=== PATIENT | female | born 1960 | race Caucasian/White ===

== ENCOUNTER 2017-12-01 19:26 | Observation (INO) ==
[2017-12-01] MEDS ORDERED: 0.9 % Sodium Chloride 1,000 ML IVC ONE (19:48)
--- NOTE | 2017-12-01 19:56 | Emergency Department Note ---
Disposition Clinical Impression: Generalized weakness, Elevated troponin, Hypokalemia Decubitus ulcer Qualifiers: Pressure ulcer location: contiguous region involving back and buttock Pressure ulcer stage: stage 3 Laterality: unspecified laterality Qualified Code(s): L89.43 - Pressure ulcer of contiguous site of back, buttock and hip, stage 3 Back pain Qualifiers: Back pain location: low back pain Chronicity: unspecified Back pain laterality : unspecified Sciatica presence: unspecified whether sciatica present Qualified Code(s): M54.5 - Low back pain Disposition: Admitted As Inpatient Condition: Fair Referrals: NONE,PCP [Primary Care Provider] - Forms: ED Satisfaction Letter Time of Disposition: 21:10 General Adult HPI - General Chief complaint: ED Weakness Stated complaint: can't walk/weak Time Seen by Provider: 12/01/17 19:37 Source: patient, family Mode of arrival: ambulatory Limitations: no limitations Nursing Notes Reviewed: Yes Vital Signs Reviewed: Yes - History of Present Illness HPI Narrative: 57-year-old female with history of COPD, chronic back pain from a traumatic injury in the past presents for evaluation of generalized weakness and difficulty with walking. Patient states she has been followed by chronic pain management up in [place]. States that she has had chronic back pain with epidural injections in the past with the most recent injection in July of last year. Patient's had neuropathy primarily in the left leg. Patient states that her weakness is progressively gotten worse over the past 2 weeks. Notes recurrent falls. Denies any head injury or loss of consciousness. Denies being any blood thinners. Patient denies any fevers. Patient states that at times she has late in her own urine. States she feels she has a UTI. Denies any fevers. Patient also notes she has been constipated for the past week. She correlates her constipation to decreased oral intake. States that she is on Lyrica for pain control. States that she is not able to perform activities of daily living at home. Patient denies any chest pain but does note a nonproductive cough during this timeframe possibly related to her period of immobility. Patient states her main complaint is pain primarily in her buttock related to likely bedsores. Pain Scale: 7 - Related Data Allergies Allergy/AdvReac Type Severity Reaction Status Date / Time Penicillins [PCN] Allergy Rash Verified 12/01/17 19:31 All systems ED: reviewed and negative except as stated. Constitutional: Denies: fever Cardiovascular: Denies: chest pain Respiratory: Reports: cough. Denies: dyspnea, sputum production Gastrointestinal: Reports: constipation. 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 Absent : tenderness - Respiratory Respiratory exam: Present: prolonged expiratory phase, other (Diffusely diminished). Absent: respiratory distress - Cardiovascular Cardiovascular exam: Present: regular rate, normal rhythm. Absent: systolic murmur - Abdominal Exam Abdominal exam: Present: soft, Non-Tender. Absent: distention, guarding, rebound - Extremities Exam Extremities exam: Present: other (lower extremity atrophy) - Expanded Lower Extremity Exam Neurovascular/Tendon exam: Present: normal capillary refill, sensory deficit. Absent: pulse deficit, motor deficit - Back Exam Back exam: Present: normal inspection. Absent: tenderness - Neurological Exam Neurological exam: Present: alert, oriented X3, CN II-XII intact - Expanded Neurological Exam Patient oriented to: Present: person, place, time Speech: Present: fluid speech Cranial nerves: EOM function (II, III, IV, ): Normal, facial sensation (V): Normal, facial palsy (VII): Normal, spinal accessory function (XI): Normal, tongue deviation (XII): Normal Motor strength - LUE: 5/5 Motor strength - RUE: 5/5 Motor strength - LLE: 5/5 Motor strength - RLE: 5/5 Sensory exam upper extremity: light touch: Normal Sensory exam lower extremity: light touch: Abnormal Left DTR: patellar (L): 3+, patellar (R): 3+ Coma Scale Eye Opening: Spontaneous Coma Scale Motor Response: Obeys Commands Coma Scale Verbal Response: Oriented Coma Scale Total: 15 - Skin Skin exam: Present: warm, dry, intact, normal color, other (Stage III decubitus ulcer on her buttock.) Course Course Narrative: Patient seen and examined. Patient appears clinically decompensated. Patient will likely require admission for formal physical therapy evaluation as well as discharge planning. Patient will do an extensive laboratory and CT evaluation. Patient with CT of the head CT and pelvis with lumbar spine. Patient will also get a chest x-ray. Basic labs. Urinalysis. Disposition admission. Patient will be started and antibiotics given the Decub ulcers. - Reevaluation(s) Reevaluation #1: Patient's updated on plan of care. Given the CT findings of the lumbar doubt and pelvis. Concerns for central pathology. Patient will get an MRI of the lumbar spine. Time: 21:33 Reevaluation #2: Patient's troponin came back elevated. Discussed this with the patient. Patient states that she does not have any chest pain. Patient does state however now that she has had chest pressure earlier today that lasted oxalate 2 hours and has since resolved. Will discuss the case with cardiology. Time: 22:04 - Consultations Consultation #1: Discussed the elevated troponin with cardiology. Recommend initiating heparin. If there is any emergent neurosurgical evaluation Or can be discontinued. Repeat EKG obtained shows no acute abnormalities. Patient will get a CTA of the chest. Given her history of immobility. Time: 22:11 Vital Signs Temperature 99.5 F 12/01/17 19:31 Pulse Rate 124 12/01/17 19:31 Respiratory Rate 20 12/01/17 19:31 Blood Pressure 117/84 12/01/17 19:31 O2 Sat by Pulse Oximetry 92 12/01/17 19:31 Temperature 100 F H 12/01/17 21:00 Pulse Rate 107 12/01/17 21:00 Respiratory Rate 16 12/01/17 21:00 Blood Pressure 108/73 12/01/17 21:00 O2 Sat by Pulse Oximetry 94 12/01/17 21:00 Oxygen Delivery Oxygen Delivery Nasal Cannula Medical Decision Making - [facility] Narrative Medical decision making narrative: Patient is a 57-year-old female who initially complains of generalized weakness with decreased ambulation. Patient does appear chronically ill. Patient also has a concerning history of chronic back pain from a remote injury in the past. Patient has worsening lower leg weakness and neuropathy in her left leg. Patient does have atrophy of the lower legs. Patient was evaluated by this in the past in [place] and had an EMG and an MRI in the past as well. Patient's workup shows a significant decubitus ulcer. Patient was started on antibiotics. Patient does have secondary signs of infection such as elevated white count. Patient CT scan of her lumbar as well as her head and abdomen and pelvis show no acute abnormalities. Patient does have remote lacunar infarcts. 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 Given the patient's physical exam and MRI was ordered. At the time of this dictation the patient was signed out pending an MRI. Patient also had an elevated troponin. Patient ultimately stated that she did have some chest pressure that occurred earlier today. States that it lasts approximately 2 hours and since resolved. Patient initially declined any said chest pain upon history and physical. Discussed the elevated troponin with the cardiology recommended starting low-dose heparin. Patient also get a CTA of the chest for concerns of her immobility. 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 Disposition likely admission versus transfer if there is any neurosurgical indication pending MRI results. - Lab Data Lab results reviewed: Yes I reviewed the patient's lab results. Result diagrams: 12/01/17 21:13 12/01/17 19:48 Lab Results 12/01/17 12/01/17 12/01/17 Range/Units 19:48 20:45 21:13 WBC 16.2 H (4.3-11.1) K/mcL RBC 4.56 (3.82-4.97) M/mcL Hgb 13.2 (11.5-15.4) g/dL Hct 40.8 (35.3-44.9) % MCV 89.5 (83.0-100.0) fL MCH 28.9 (28.0-33.3) pg MCHC 32.4 (31.6-35.5) g/dL RDW 14.5 (11.5-14.5) % Plt Count 417 H (140-400) K/mcL MPV 11.3 (9.4-12.4) fL Immature Gran % 2.6 (0-4) % Seg Neutrophils % 71.3 % Lymphocytes % 18.3 % Monocytes % 6.9 % Eosinophils % 0.6 % Basophils % 0.3 % Neutrophils # 11.6 H (1.6-8.9) K/mcL Lymphocytes # 3.0 (0.6-4.6) K/mcL Monocytes # 1.1 (0.0-1.3) K/mcL Eosinophils # 0.1 (0.0-0.6) K/mcL Basophils # 0.1 (0.0-0.2) K/mcL Platelet Estimate Normal (Normal) Sodium 134 L (136-145) mEq/L Potassium 2.8 L (3.5-5.1) mEq/L Chloride 91 L (98-107) mEq/L Carbon Dioxide 31 H (23-29) mEq/L BUN 17 (6-20) mg/dL Creatinine 0.51 L (0.60-1.20) mg/dL Est GFR ( Amer) > 60 (> 60) Est GFR (Non-Af Amer) > 60 (> 60) BUN/Creatinine Ratio 33 H (6-26) Glucose 96 (70-105) mg/dL Calculated Osmolality 279 L (280-300) Lactic Acid (0.5-2.2) mmol/L Calcium 9.4 (8.6-10.3) mg/dL Phosphorus 3.2 (2.7-4.5) mg/dL Magnesium 1.7 (1.6-2.6) mg/dL Total Bilirubin 0.5 (0.3-1.0) mg/dL AST 31 (13-39) Units/L ALT 32 (7-52) Units/L Alkaline Phosphatase 80 (34-104) Units/L Creatine Kinase 170 (30-223) Units/L Troponin I 0.81 H* (< 0.04) ng/mL Serum Total Protein 8.0 (6.4-8.9) g/dL Albumin 3.9 (3.5-5.7) g/dL Globulin 4.1 H (2.4-3.5) g/dL Albumin/Globulin Ratio 1.0 L (1.1-2.2) Urine Color Dark Yellow (Yellow) Urine Clarity Cloudy A (Clear) Urine pH 7.0 (5.0-8.0) pH Units Ur Specific [place] 1.016 (1.010-1.025) Urine Protein Trace (Neg-Trace) mg/dL Urine Glucose (UA) Normal (Normal) mg/dL Urine Ketones 15 H (Negative) mg/dL Urine Blood Negative (Negative) Urine Nitrite Negative (Negative) Urine Bilirubin Small H (Negative) Urine Urobilinogen 2.0 H (Normal) mg/dL Ur Leukocyte Esterase Negative (Negative) Urine Microscopic RBC 0-3 (0-3) per hpf Urine Microscopic WBC 0-3 (0-3) per hpf Ur Squamous Epith Cells Many H (None-Few) per lpf Urine Bacteria Many H (None-Few) per hpf Hyaline Casts None Seen (None-Few) per lpf Ur Culture Indicated? NO (NO) 12/01/17 Range/Units 21:13 WBC (4.3-11.1) K/mcL RBC (3.82-4.97) M/mcL Hgb (11.5-15.4) g/dL Hct (35.3-44.9) % MCV (83.0-100.0) fL MCH (28.0-33.3) pg MCHC (31.6-35.5) g/dL RDW (11.5-14.5) % Plt Count (140-400) K/mcL MPV (9.4-12.4) fL Immature Gran % (0-4) % Seg Neutrophils % % Lymphocytes % % Monocytes % % Eosinophils % % Basophils % % Neutrophils # (1.6-8.9) K/mcL Lymphocytes # (0.6-4.6) K/mcL Monocytes # (0.0-1.3) K/mcL Eosinophils # (0.0-0.6) K/mcL Basophils # (0.0-0.2) K/mcL Platelet Estimate (Normal) Sodium (136-145) mEq/L Potassium (3.5-5.1) mEq/L Chloride (98-107) mEq/L Carbon Dioxide (23-29) mEq/L BUN (6-20) mg/dL Creatinine (0.60-1.20) mg/dL Est GFR ( Amer) (> 60) Est GFR (Non-Af Amer) (> 60) BUN/Creatinine Ratio (6-26) Glucose (70-105) mg/dL Calculated Osmolality (280-300) Lactic Acid 1.4 (0.5-2.2) mmol/L Calcium (8.6-10.3) mg/dL Phosphorus (2.7-4.5) mg/dL Magnesium (1.6-2.6) mg/dL Total Bilirubin (0.3-1.0) mg/dL AST (13-39) Units/L ALT (7-52) Units/L Alkaline Phosphatase (34-104) Units/L Creatine Kinase (30-223) Units/L Troponin I (< 0.04) ng/mL Serum Total Protein (6.4-8.9) g/dL Albumin (3.5-5.7) g/dL Globulin (2.4-3.5) g/dL Albumin/Globulin Ratio (1.1-2.2) Urine Color (Yellow) Urine Clarity (Clear) Urine pH (5.0-8.0) pH Units Ur Specific [place] (1.010-1.025) Urine Protein (Neg-Trace) mg/dL Urine Glucose (UA) (Normal) mg/dL Urine Ketones (Negative) mg/dL Urine Blood (Negative) Urine Nitrite (Negative) Urine Bilirubin (Negative) Urine Urobilinogen (Normal) mg/dL Ur Leukocyte Esterase (Negative) Urine Microscopic RBC (0-3) per hpf Urine Microscopic WBC (0-3) per hpf Ur Squamous Epith Cells (None-Few) per lpf Urine Bacteria (None-Few) per hpf Hyaline Casts (None-Few) per lpf Ur Culture Indicated? (NO) - Radiology Data Radiology results reviewed: Yes I reviewed the patient's radiology results. Chest X-Ray 12/01/17 19:48 IMPRESSION: No acute process. D/ / Junito Hightower MD / Junito Hightower MD Interpreting Provider: Junito Hightower MD Head CT 12/01/17 19:48 IMPRESSION: 1. No acute intracranial abnormality. 2. Mild diffuse atrophy with minimal chronic small vessel ischemic changes. 3. Suspected old lacunar infarct in the right basal ganglia. D/ / Junito Jones MD / Junito Jones MD Interpreting Provider: Junito oJnes MD Abdomen/Pelvis CT 12/01/17 19:53 IMPRESSION: 1. No acute abnormality. 2. Urinary bladder dilation. 3. Severe atherosclerosis with occlusion of the right common iliac artery and probable severe stenosis of the left common iliac artery. D/ / 12/01/2017 21:04:12 Boo Finch MD / mookie Interpreting Provider: Boo Finch MD Lumbar Spine CT 12/01/17 19:53 IMPRESSION: 1. No acute osseous abnormality. 2. Multilevel mild to moderate facet arthrosis and ligamentum flavum thickening and mild degenerative disc disease result in mild central canal encroachment at the L2-3 through L4-L5 levels. 3. Severe atherosclerotic disease. D/ / Mars Hauser MD / Mars Hauser MD Interpreting Provider: Mars Hauser MD - EKG Data EKG #1 EKG attestation: Yes I reviewed and interpreted this EKG. EKG shows normal: sinus rhythm Rate: tachycardia Rhythm: NSR [place]/QRS: normal P waves: ALY Interpretation: no acute changes S.B.A.R. - S.B.A.R. Situation: Demographics Background: Presenting Complaint Assessment: Vital Signs, Course and respsone to treatment, Patient/Family Expectation Recommendation: Barrier(s) to disposition (Pending MRI and CTA results), Recommendation based on pending studies, treatments, or consults S.B.A.R. Report Given to: Dr. Shepard SLucy Repor Time: 22:29 Attestation Statement - Attestation Attestation: Patient was seen with resident physician. I reviewed the history, physical, assessment and plan, and agree with the findings. I also personally evaluated this patient and had [id number] time with this patient. 57-year-old female with history of COPD and chronic back pain secondary to injury. Presents with inability to walk for the last week or so. Patient lives by herself and has basically been confined to her bed because she is concerned with the weakness in her legs. She said the weakness results in her falling and she was afraid to fall so she is mostly been bedridden. She is not effectively gone to the bathroom in terms of urination. She says painful and difficult for her to PE. She also feels soreness on her buttock area and has ulcerations there. No nausea vomiting or diarrhea. Review of systems as above remainder reviewed and negative. Exam. Vital signs stable. ENT is unremarkable. Heart regular rhythm and rate. Lungs no wheezing. Abdomen soft nontender. Extremities patient has a position of comfort with flexion in her lower extremities. She can move them they are bilaterally week in terms of strength. Neurologically patient is decreased strength bilaterally but no focal deficits. Skin exam patient has grade 3 decubitus ulcers posteriorly. Psych normal. ED course we will get blood cultures start patient on antibiotics for the decubitus ulcers. We will place a Porter catheter and check UA and basic labs as well as blood cultures. Patient will need a thorough workup and admission to the hospital. We will get CT scan of the back as well to make sure there is no additional structural damage or changes there. CT the head revealed no acute abnormalities. Back CT revealed degenerative changes, and abdominal CT revealed a distended bladder. Because of accommodation of this increasing weakness and then difficulty urinating we opted get an MRI of the back which is pending at the time of this dictation. Additionally patient came back with labs that demonstrated hypokalemia for which we treated. She also had an elevated troponin. We consult cardiology via the telephone who recommended starting on heparin, and if her back required surgical intervention and back be discontinued for that procedure. Because of the elevated troponin we also ordered a chest CT to make sure that with her immobility she does not have a PE. Both the CT of the chest the MRI were pending at time of shift change. These tests would ultimately impact patient's disposition whether she is admitted to the hospital or potentially transferred to another hospital. We were unable to make this determination without the test results. Patient was signed out to Dr. Azar for final care and disposition.
[2017-12-01 20:51] LABS: Bilirubin,Urine Small (Negative); Blood,Urine Negative (Negative); Clarity,Urine Cloudy (Clear); Color,Urine Dark Yellow (Yellow); Glucose,Urine (UA) Normal (Normal); Ketones,Urine 15 mg/dL (Negative); Leukocyte Esterase,Urine Negative (Negative); Nitrite,Urine Negative (Negative); Protein,Urine Trace mg/dL (Neg-Trace); Specific Gravity,Urine 1.016 (1.010-1.025)
[2017-12-01 20:53] LABS: Bacteria,Urine Many per hpf (None-Few); Hyaline Casts,Urine None Seen per lpf (None-Few); RBC,Urine 0-3 per hpf (0-3); Squamous Epithelial Cell,Urine Many per lpf (None-Few); WBC,Urine 0-3 per hpf (0-3)
[2017-12-01 21:23] LABS: Basophils # 0.1 K/mcL (0.0-0.2); Basophils % 0.3 %; Eosinophils # 0.1 K/mcL (0.0-0.6); Eosinophils % 0.6 %; Hematocrit 40.8 % (35.3-44.9); Hemoglobin 13.2 g/dL (11.5-15.4); Immature Granulocytes % 2.6 % (0-4); Lymphocytes % 18.3 %; Mean Corpuscular HGB Conc 32.4 g/dL (31.6-35.5); Mean Corpuscular Hemoglobin 28.9 pg (28.0-33.3); Mean Corpuscular Volume 89.5 fL (83.0-100.0); Mean Platelet Volume 11.3 fL (9.4-12.4); Monocytes # 1.1 K/mcL (0.0-1.3); Monocytes % 6.9 %; Platelet Count 417 K/mcL (140-400); Red Blood Count 4.56 M/mcL (3.82-4.97); Red Cell Distribution Width 14.5 % (11.5-14.5); Segmented Neutrophils % 71.3 %
[2017-12-01 21:27] LABS: Neutrophils # 11.6 K/mcL (1.6-8.9)
[2017-12-01 21:50] LABS: Platelet Estimate Normal (Normal)
[2017-12-01 21:53] LABS: Alanine Aminotransferase 32 Units/L (7-52); Albumin 3.9 g/dL (3.5-5.7); Alkaline Phosphatase 80 Units/L (34-104); Aspartate Amino Transferase 31 Units/L (13-39); BUN/Creatinine Ratio 33 (6-26); Bilirubin,Total 0.5 mg/dL (0.3-1.0); Blood Urea Nitrogen 17 mg/dL (6-20); Calcium 9.4 mg/dL (8.6-10.3); Carbon Dioxide 31 mEq/L (23-29); Chloride 91 mEq/L (98-107); Creatine Kinase 170 Units/L (30-223); Globulin 4.1 g/dL (2.4-3.5); Glucose 96 mg/dL (70-105); Magnesium 1.7 mg/dL (1.6-2.6); Osmolality,Calculated 279 (280-300); Phosphorous 3.2 mg/dL (2.7-4.5); Potassium 2.8 mEq/L (3.5-5.1); Sodium 134 mEq/L (136-145); eGFR For African Americans > 60 (> 60); eGFR For Non-African Americans > 60 (> 60)
[2017-12-01 21:59] LABS: Troponin I 0.81 ng/mL (< 0.04)
[2017-12-01] MEDS ORDERED: Aspirin 81 MG TAB.CHEW PO ONE (21:59)
[2017-12-01] MEDS ORDERED: Potassium Chloride 20 MEQ, Lidocaine 1% 2 ML in D5% in Water 250 ML IVPB ONE (21:59)
[2017-12-01] MEDS ORDERED: *HR* Heparin 5,000 UNIT/ML VIAL IVP ONE (22:09)
[2017-12-01] MEDS ORDERED: Heparin 25,000 UNIT/500 ML D5W 25,000 UNIT/500 ML BAG IVC SCH (22:15)
[2017-12-01] MEDS ORDERED: Cefepime HCl 1,000 MG in Water for inj. (sterile) 20 ML 10 ML IVP ONE (23:00)
[2017-12-01 23:41] LABS: INR 1.2; Prothrombin Time 12.8 Seconds (9.4-12.1)
[2017-12-01 23:44] LABS: Activated Partial Thrombo Time 22.7 Seconds (26.0-36.0)
[2017-12-02] MEDS ORDERED: Albuterol 2.5 MG/3 ML NEBULIZER IH ONE (00:29)
[2017-12-02] MEDS ORDERED: *HR* OxyCODONE/APAP 7.5/325 TABLET PO ONE ×2 (00:30→21:51)
[2017-12-02] MEDS ORDERED: Aminoglycoside Consult 1 EACH MC ONE (01:21)
--- NOTE | 2017-12-02 02:57 | Internal Med History&Physical ---
Date of Encounter: 12/02/17 Time of Encounter: 02:40 Assessment and Plan (1) Elevated troponin Current visit: Yes Status: Acute Patient has multiple risk factors for CAD, x-ray and the CT scan shows severe atherosclerosis, elevated troponin most likely from non-STEMI. We will continue heparin drip consult a sole skiver follow up troponin (2) PAD (peripheral artery disease) Current visit: Yes Status: Acute CT abdomen showed right common iliac arterial occlusion with severe PAD, we will check a bilateral duplex (3) COPD (chronic obstructive pulmonary disease) Current visit: Yes Status: Acute COPD active smoker, smoking cessation discussed. No wheezing Qualifiers: COPD type: emphysema Emphysema type: centrilobular Qualified Code(s): J43.2 - Centrilobular emphysema (4) Smoker Current visit: Yes Status: Chronic (5) Leukocytosis Current visit: Yes Status: Acute Patient has negative chest x-ray negative UA, she received IV cefepime and vancomycin for possible decubitus infection. We will continue antibiotics Qualifiers: Leukocytosis type: bandemia Qualified Code(s): D72.825 - Bandemia (6) Generalized weakness Current visit: Yes Status: Acute Generalized weakness and worsening bilateral lower extremity weakness, acute on chronic, we will consult PT and OT. She had the spine CT negative MRI is negative (7) Decubitus ulcer Current visit: Yes Status: Acute Patient has bilateral sacral unstageable decubitus, consult wound care Qualifiers: Pressure ulcer location: contiguous region involving back and buttock Pressure ulcer stage: unstageable Laterality: unspecified laterality Qualified Code(s): L89.45 - Pressure ulcer of contiguous site of back, buttock and hip, unstageable (8) Back pain Current visit: Yes Status: Chronic Chronic back pain, negative MRI Qualifiers: Back pain location: low back pain Chronicity: chronic Back pain laterality: unspecified Sciatica presence: unspecified whether sciatica present Qualified Code(s): M54.5 - Low back pain; G89.29 - Other chronic pain ; G89.29 - Other chronic pain (9) Hypokalemia Current visit: Yes Status: Acute Hypokalemia we will replace and a follow-up Internal Medicine - H&P: HPI Chief complaint: leg weakness Admitted From: Home Plans for Post Hospital Care: Transfer Care Home Facility History of present illness: Ms. Lua is a 57 year old female who has history of COPD, chronic back pain , severe PAD, smoker, presenting emergency room for generalized weakness unable to walk, in bedbound for 1 week.. Patient has chronic back pain has been getting epidural injection from [place], she has chronic leg weakness but was able to ambulate, over last 2 weeks the leg weakness progressively gotten worse , associated with numbness. she has been unable to get out of bed for 1 week. Normally she uses wheel chair getting around . She developed decubitus in buttock. Patient denies chest pain, no constipation, no diarrhea, denies abdominal pain and leg pain. In the emergency room she had a complete workup shows WBC elevated 16.2, lactate is normal. Potassium 2.8 normal, normal creatinine troponin 0.81 elevated. Chest x-ray is negative for pneumonia, UA is negative for infection. CT abdominal shows right common iliac arterial occlusion. Head CT shows old lacunar infarct, chronic ischemic changes. She also had a CTA showed a negative PE, emphysema, pulmonary nodules. Patient is going to be admitted for non-STEMI, dehydration, decubitus, leg weakness, hypokalemia Past Med Surg Social Fam HX - Past Medical History Medical history: asthma, COPD, hepatitis Psychiatric history: no psych history - Social History Smoking Status: Light tobacco smoker Smokeless Tobacco Status: No Alcohol use: none Drug use: marijuana Internal Medicine - H&P: Meds 3 Allergy/AdvReac Type Severity Reaction Status Date / Time Penicillins [PCN] Allergy Rash Verified 12/01/17 19:31 All Systems PM: A 10-system review of systems was performed and is negative for pertinent findings except as documented above in the HPI. - Constitutional Vitals: Temp Pulse Resp BP Pulse Ox 100 F H 100 20 119/73 95 12/02/17 01:01 12/02/17 01:01 12/02/17 01:01 12/02/17 01:01 12/02/17 01:01 General appearance: Present: A&O X 3, pleasant, answers questions appropriately Exam: CONSTITUTIONAL: Patient appears as an age appropriate female well developed, in no acute distress. EYES Clear sclerae, bilateral pupils are equal, reactive to light and accommodation. Extraocular movements are intact RESPIRATORY: No accessory muscle use, bilateral clear to auscultation, no wheezing, no crackles/rales. CARDIOVASCULAR: Regular heart rate, normal S1 and S2, no murmurs GASTROINTESTINAL: bowel sounds present, soft, no tenderness. No hepatosplenomegaly. No bilateral CVA tenderness MUSCULOSKELETAL: Joints in normal range of motion, no clubbing, no edema, no cyanosis. Bilateral peripheral pulses 2+ LYMPHATIC no lymphadenopathy in neck, groin and axilla bilaterally, no thyromegaly. NEUROLOGIC: CN II to XII are grossly intact, no focal neurological deficit. Deep tendon reflexes 2+ bilaterally. Normal light touch sensation to upper and lower extremity PSYCHIATRIC: Oriented x3, with good insight, mood is euthymic. No hallucinations or delusions. SKIN: Skin warm and dry, no rashes, buttock unstagable DECUBITUS. Internal Med - H&P Results - Labs CBC & Chem 7: 12/01/17 21:13 12/01/17 19:48
[2017-12-02] MEDS ORDERED: Aspirin 325 MG TABLET PO ONE (03:14)
[2017-12-02] MEDS ORDERED: Nitroglycerin 0.4 MG TAB.SUBL SL PRN (03:14)
[2017-12-02 03:50] LABS: Basophils # 0.1 K/mcL (0.0-0.2); Basophils % 0.4 %; Eosinophils # 0.1 K/mcL (0.0-0.6); Eosinophils % 0.9 %; Hematocrit 35.4 % (35.3-44.9); Lymphocytes # 3.9 K/mcL (0.6-4.6); Lymphocytes % 24.8 %; Mean Corpuscular HGB Conc 32.8 g/dL (31.6-35.5); Mean Corpuscular Hemoglobin 28.6 pg (28.0-33.3); Mean Corpuscular Volume 87.4 fL (83.0-100.0); Mean Platelet Volume 10.8 fL (9.4-12.4); Monocytes # 1.2 K/mcL (0.0-1.3); Monocytes % 7.6 %; Neutrophils # 9.9 K/mcL (1.6-8.9); Platelet Count 356 K/mcL (140-400); Red Blood Count 4.05 M/mcL (3.82-4.97); Red Cell Distribution Width 14.6 % (11.5-14.5); Segmented Neutrophils % 63.3 %
[2017-12-02 03:56] LABS: INR 1.2; Prothrombin Time 12.7 Seconds (9.4-12.1)
[2017-12-02 04:19] LABS: Alanine Aminotransferase 25 Units/L (7-52); Albumin 3.3 g/dL (3.5-5.7); Alkaline Phosphatase 65 Units/L (34-104); Aspartate Amino Transferase 24 Units/L (13-39); BUN/Creatinine Ratio 29 (6-26); Bilirubin,Total 0.4 mg/dL (0.3-1.0); Blood Urea Nitrogen 12 mg/dL (6-20); Calcium 8.7 mg/dL (8.6-10.3); Carbon Dioxide 30 mEq/L (23-29); Chloride 96 mEq/L (98-107); Globulin 3.4 g/dL (2.4-3.5); Glucose 106 mg/dL (70-105); Magnesium 1.7 mg/dL (1.6-2.6); Osmolality,Calculated 280 (280-300); Sodium 135 mEq/L (136-145); Total Protein 6.7 g/dL (6.4-8.9); eGFR For African Americans > 60 (> 60); eGFR For Non-African Americans > 60 (> 60)
[2017-12-02 04:23] LABS: Hemoglobin 11.6 g/dL (11.5-15.4)
[2017-12-02 04:26] LABS: Platelet Estimate Normal (Normal)
[2017-12-02 05:08] LABS: Amphetamine Screen,Urine Negative ng/mL (Cutoff=1000); Barbiturate Screen,Urine Negative ng/mL (Cutoff=200); Benzodiazepines Screen,Urine Negative ng/mL (Cutoff=200); Cannabinoid Screen,Urine Negative ng/mL (Cutoff = 50); Cocaine Screen,Urine Negative ng/mL (Cutoff= 300); Opiate Screen,Urine Negative ng/mL (Cutoff=300); Phencyclidine Screen,Urine Negative ng/mL (Cutoff=25)
[2017-12-02] MEDS ORDERED: *HR* Heparin 5,000 UNIT/ML VIAL IVP PRN ×2 (06:00)
--- NOTE | 2017-12-02 08:15 | Emergency Department Note ---
Disposition Clinical Impression: Generalized weakness, Elevated troponin, Hypokalemia Decubitus ulcer Qualifiers: Pressure ulcer location: contiguous region involving back and buttock Pressure ulcer stage: unstageable Laterality: unspecified laterality Qualified Code(s): L89.45 - Pressure ulcer of contiguous site of back, buttock and hip, unstageable Back pain Qualifiers: Back pain location: low back pain Chronicity: chronic Back pain laterality: unspecified Sciatica presence: unspecified whether sciatica present Qualified Code(s): M54.5 - Low back pain Disposition: Admitted As Inpatient Condition: Fair General Adult HPI - General Chief complaint: ED Weakness Stated complaint: can't walk/weak Time Seen by Provider: 12/01/17 19:37 Source: patient, family Mode of arrival: ambulatory Limitations: no limitations - History of Present Illness Pain Scale: 0 - Related Data Allergies Allergy/AdvReac Type Severity Reaction Status Date / Time Penicillins [PCN] Allergy Rash Verified 12/01/17 19:31 Constitutional: Denies: fever Cardiovascular: Denies: chest pain Respiratory: Reports: cough. Denies: dyspnea, sputum production Gastrointestinal: Reports: constipation. Denies: abdominal pain, nausea, vomiting Genitourinary: Reports: dysuria Past Medical History - Past Medical History Medical history: Reports: asthma, COPD, hepatitis Psychiatric history: Reports: no psych history [employer] history: Reports: bilateral tubal ligation - Social History Smoking Status: Light tobacco smoker Smokeless Tobacco Status: No Alcohol use: Reports: none Drug use: Reports: marijuana Physical Exam - General Limitations: no limitations General appearance: alert, cachectic Course Course Narrative: This patient was signed out at shift change from Dr. Osorio and Dr. Santos. Please refer to their notes for complete details of history and physical examination. At shift change patient is awaiting results of an MRI of the lumbar spine and also a CTA of the chest prior to being admitted to the hospitalist. MRI of the lumbar spine showed no acute abnormalities. CTA of the chest showed : 1. No evidence of pulmonary embolism or aortic dissection. 2. Severe emphysema. 3. Small focal areas of opacity within the lungs, for example seen within the posterior right upper lung. Although these are relatively minor in volume, given the patient's limited alveolar reserve, these likely are clinically significant, and may represent small foci of pneumonia. 4. There is a least 1 nodular opacity identified with the right upper lobe peripherally for which follow-up should be considered. The hospitalist, Dr. Botello, was consulted and accepted admission of the patient. Vital Signs Temperature 99.5 F 12/01/17 19:31 Pulse Rate 124 12/01/17 19:31 Respiratory Rate 20 12/01/17 19:31 Blood Pressure 117/84 12/01/17 19:31 O2 Sat by Pulse Oximetry 92 12/01/17 19:31 Temperature 98.1 F 12/02/17 07:02 Pulse Rate 116 12/02/17 07:02 Respiratory Rate 18 12/02/17 07:02 Blood Pressure 103/70 12/02/17 07:02 O2 Sat by Pulse Oximetry 97 12/02/17 07:02 Oxygen Delivery Oxygen Delivery Nasal Cannula Medical Decision Making - Lab Data Result diagrams: 12/02/17 03:38 12/02/17 03:38 Lab Results 12/01/17 12/01/17 12/01/17 Range/Units 19:48 20:45 21:13 WBC 16.2 H (4.3-11.1) K/mcL RBC 4.56 (3.82-4.97) M/mcL Hgb 13.2 (11.5-15.4) g/dL Hct 40.8 (35.3-44.9) % MCV 89.5 (83.0-100.0) fL MCH 28.9 (28.0-33.3) pg MCHC 32.4 (31.6-35.5) g/dL RDW 14.5 (11.5-14.5) % Plt Count 417 H (140-400) K/mcL MPV 11.3 (9.4-12.4) fL Immature Gran % 2.6 (0-4) % Seg Neutrophils % 71.3 % Lymphocytes % 18.3 % Monocytes % 6.9 % Eosinophils % 0.6 % Basophils % 0.3 % Neutrophils # 11.6 H (1.6-8.9) K/mcL Lymphocytes # 3.0 (0.6-4.6) K/mcL Monocytes # 1.1 (0.0-1.3) K/mcL Eosinophils # 0.1 (0.0-0.6) K/mcL Basophils # 0.1 (0.0-0.2) K/mcL Platelet Estimate Normal (Normal) PT (9.4-12.1) Seconds INR APTT (26.0-36.0) Seconds Sodium 134 L (136-145) mEq/L Potassium 2.8 L (3.5-5.1) mEq/L Chloride 91 L (98-107) mEq/L Carbon Dioxide 31 H (23-29) mEq/L BUN 17 (6-20) mg/dL Creatinine 0.51 L (0.60-1.20) mg/dL Est GFR ( Amer) > 60 (> 60) Est GFR (Non-Af Amer) > 60 (> 60) BUN/Creatinine Ratio 33 H (6-26) Glucose 96 (70-105) mg/dL Calculated Osmolality 279 L (280-300) Lactic Acid (0.5-2.2) mmol/L Calcium 9.4 (8.6-10.3) mg/dL Phosphorus 3.2 (2.7-4.5) mg/dL Magnesium 1.7 (1.6-2.6) mg/dL Total Bilirubin 0.5 (0.3-1.0) mg/dL AST 31 (13-39) Units/L ALT 32 (7-52) Units/L Alkaline Phosphatase 80 (34-104) Units/L Creatine Kinase 170 (30-223) Units/L Troponin I 0.81 H* (< 0.04) ng/mL Serum Total Protein 8.0 (6.4-8.9) g/dL Albumin 3.9 (3.5-5.7) g/dL Globulin 4.1 H (2.4-3.5) g/dL Albumin/Globulin Ratio 1.0 L (1.1-2.2) Urine Color Dark Yellow (Yellow) Urine Clarity Cloudy A (Clear) Urine pH 7.0 (5.0-8.0) pH Units Ur Specific [place] 1.016 (1.010-1.025) Urine Protein Trace (Neg-Trace) mg/dL Urine Glucose (UA) Normal (Normal) mg/dL Urine Ketones 15 H (Negative) mg/dL Urine Blood Negative (Negative) Urine Nitrite Negative (Negative) Urine Bilirubin Small H (Negative) Urine Urobilinogen 2.0 H (Normal) mg/dL Ur Leukocyte Esterase Negative (Negative) Urine Microscopic RBC 0-3 (0-3) per hpf Urine Microscopic WBC 0-3 (0-3) per hpf Ur Squamous Epith Cells Many H (None-Few) per lpf Urine Bacteria Many H (None-Few) per hpf Hyaline Casts None Seen (None-Few) per lpf Ur Culture Indicated? NO (NO) 12/01/17 12/01/17 Range/Units 21:13 23:30 WBC (4.3-11.1) K/mcL RBC (3.82-4.97) M/mcL Hgb (11.5-15.4) g/dL Hct (35.3-44.9) % MCV (83.0-100.0) fL MCH (28.0-33.3) pg MCHC (31.6-35.5) g/dL RDW (11.5-14.5) % Plt Count (140-400) K/mcL MPV (9.4-12.4) fL Immature Gran % (0-4) % Seg Neutrophils % % Lymphocytes % % Monocytes % % Eosinophils % % Basophils % % Neutrophils # (1.6-8.9) K/mcL Lymphocytes # (0.6-4.6) K/mcL Monocytes # (0.0-1.3) K/mcL Eosinophils # (0.0-0.6) K/mcL Basophils # (0.0-0.2) K/mcL Platelet Estimate (Normal) PT 12.8 H (9.4-12.1) Seconds INR 1.2 APTT 22.7 L (26.0-36.0) Seconds Sodium (136-145) mEq/L Potassium (3.5-5.1) mEq/L Chloride (98-107) mEq/L Carbon Dioxide (23-29) mEq/L BUN (6-20) mg/dL Creatinine (0.60-1.20) mg/dL Est GFR ( Amer) (> 60) Est GFR (Non-Af Amer) (> 60) BUN/Creatinine Ratio (6-26) Glucose (70-105) mg/dL Calculated Osmolality (280-300) Lactic Acid 1.4 (0.5-2.2) mmol/L Calcium (8.6-10.3) mg/dL Phosphorus (2.7-4.5) mg/dL Magnesium (1.6-2.6) mg/dL Total Bilirubin (0.3-1.0) mg/dL AST (13-39) Units/L ALT (7-52) Units/L Alkaline Phosphatase (34-104) Units/L Creatine Kinase (30-223) Units/L Troponin I (< 0.04) ng/mL Serum Total Protein (6.4-8.9) g/dL Albumin (3.5-5.7) g/dL Globulin (2.4-3.5) g/dL Albumin/Globulin Ratio (1.1-2.2) Urine Color (Yellow) Urine Clarity (Clear) Urine pH (5.0-8.0) pH Units Ur Specific [place] (1.010-1.025) Urine Protein (Neg-Trace) mg/dL Urine Glucose (UA) (Normal) mg/dL Urine Ketones (Negative) mg/dL Urine Blood (Negative) Urine Nitrite (Negative) Urine Bilirubin (Negative) Urine Urobilinogen (Normal) mg/dL Ur Leukocyte Esterase (Negative) Urine Microscopic RBC (0-3) per hpf Urine Microscopic WBC (0-3) per hpf Ur Squamous Epith Cells (None-Few) per lpf Urine Bacteria (None-Few) per hpf Hyaline Casts (None-Few) per lpf Ur Culture Indicated? (NO)
[2017-12-02] MEDS: Aspirin 81 MG TAB.CHEW PO SCH (08:34)
[2017-12-02] MEDS: Cefepime HCl 2,000 MG in Water for inj. (sterile) 20 ML 20 ML IVPB SCH ×2 (08:34→16:12)
[2017-12-02] MEDS: Levofloxacin 750 MG/150 ML 750 MG/150 ML BAG IVPB SCH (09:12)
--- NOTE | 2017-12-02 11:23 | Event Note ---
Date of Encounter: 12/02/17 Time of Encounter: 09:45 Patient is somnolent. Wakes up and answers questions but falls back to sleep. Denies any chest pain at this time. WBC count trending down. Troponins have also trended down. On IV heparin. CT of the chest does show pneumonia. Will add Levaquin to antibiotic regimen. Follow culture results. Cardiology consulted. We will follow recommendations. 2-D echocardiogram ordered.
--- NOTE | 2017-12-02 11:38 | Cardiology Consult Note ---
<Supa Chan - Last Filed: 12/02/17 11:39> Date of Encounter: 12/02/17 Time of Encounter: 11:30 Assessment and Plan (1) COPD (chronic obstructive pulmonary disease) Current Visit: Yes Status: Acute Per Cardiology: History of COPD and utilizes oxygen at home 24 7. Patient to being managed by primary service with antibiotics. She reports diagnosed with influenza and pneumonia. CT results as below: IMPRESSION: 1. No evidence of pulmonary embolism or aortic dissection. 2. Severe emphysema. 3. Small focal areas of opacity within the lungs, for example seen within the posterior right upper lung. Although these are relatively minor in volume, given the patient's limited alveolar reserve, these likely are clinically significant, and may represent small foci of pneumonia. 4. There is a least 1 nodular opacity identified with the right upper lobe peripherally for which follow-up should be considered. Qualifiers: COPD type: emphysema Emphysema type: centrilobular Qualified Code(s): J43.2 - Centrilobular emphysema (2) Elevated troponin Current Visit: Yes Status: Acute Per Cardiology: Initial troponin elevated at 0.81, however subsequent 3 troponins have been negative less than 0.03. Echo pending. Patient experiencing acute on COPD exacerbation with suspicious pneumonia. Question if initial troponin is accurate. Will await echo. Will attempt to obtain medical records from outside facility-- reports stress test about one year ago. Denies any history of CAD and has never had heart catheterization. Will evaluate need for further need for ischemic evaluation tomorrow based on echo and records review. Will DC IV heparin drip. On aspirin and statin. Can consider addition of beta johanna due to tachycardia, however used with caution with severe COPD and currently systolic blood pressures in the low 100s. (3) Hypokalemia Current Visit: Yes Status: Acute Per Cardiology: Continue to replace. Discussion w patient/family: The assessment and plan as outlined above was discussed with the patient and/or family members who expressed understanding and agreement. All questions were answered. Thank you for involving us in the care of your patient. Please call with any questions. History of Present Illness Consult date: 12/02/17 Requesting physician: Renee Knowles Consult reason: Elevated Trop Chief complaint: SOB History of present illness: Previous records reviewed: Ms. Lua is a 57 year old female who has history of COPD, chronic back pain , severe PAD, smoker, presenting emergency room for generalized weakness unable to walk, in bedbound for 1 week.. Patient has chronic back pain has been getting epidural injection from [place], she has chronic leg weakness but was able to ambulate, over last 2 weeks the leg weakness progressively gotten worse , associated with numbness. she has been unable to get out of bed for 1 week. Normally she uses wheel chair getting around . She developed decubitus in buttock. Patient denies chest pain, no constipation, no diarrhea, denies abdominal pain and leg pain. In the emergency room she had a complete workup shows WBC elevated 16.2, lactate is normal. Potassium 2.8 normal, normal creatinine troponin 0.81 elevated. Chest x-ray is negative for pneumonia, UA is negative for infection. CT abdominal shows right common iliac arterial occlusion. Head CT shows old lacunar infarct, chronic ischemic changes. She also had a CTA showed a negative PE, emphysema, pulmonary nodules". Cardiology consult for elevated troponin. Patient seen with family at bedside. Confirms history of COPD and utilizes oxygen 24 7, denies history of CAD and reports stress testing about one year ago at [facility] (follows with [facility] cardiology). She reports over the past one week increased shortness of breath at rest and with exertion worse than her baseline. She reports persistent dry cough with chest soreness. She reports elevated heart rates with increased short of breath. She denies any active bleeding or blood loss. Denies any syncope or falls. Past Med Surg Social Fam HX - Past Medical History Attestation: Yes The following information was validated with the patient. Source: patient, old records reviewed, obtained from family Medical history: asthma, COPD, hepatitis Psychiatric history: no psych history - Social History Smoking Status: Light tobacco smoker Smokeless Tobacco Status: No Alcohol use: none Drug use: marijuana Medications and Allergies FLUoxetine HCl [PROzac] 20 mg PO DAILY 12/02/17 [History] Ibuprofen [Motrin] 800 mg PO Q8HR PRN 12/02/17 [History] Mirtazapine [Remeron] 30 mg PO HS 12/02/17 [History] Pregabalin [Lyrica] 100 mg PO BID 12/02/17 [History] Promethazine 12.5 mg PO Q6HR PRN 12/02/17 [History] Quetiapine Fumarate [Seroquel Xr] 200 mg PO HS 12/02/17 [History] Ropinirole HCl [Requip] 0.5 mg PO BID 12/02/17 [History] 3 Allergy/AdvReac Type Severity Reaction Status Date / Time Penicillins [PCN] Allergy Rash Verified 12/01/17 19:31 All Systems Review: The remainder of the systems were reviewed and are negative - Constitutional Constitutional: fatigue - Cardiovascular Cardiovascular: as per HPI, chest pain at rest, dyspnea at rest, dyspnea on exertion, leg edema - Respiratory Respiratory: cough Physical Examination Vital Signs, Last 4 Hours Temp Pulse Resp BP Pulse Ox 12/02/17 11:30 97.8 F 97 18 92/62 99 General: Conversant HEENT: Atraumatic, Normocephaly, Mucus Membranes Moist Neck: No JVD, Normal carotid pulses Cardiac: Reg Rate and Rhythm, Normal S1 and S2, No Murmur Lungs: Normal Breath Sounds, No Wheeze, Rales, Rhonchi, Other (Diminished breath sounds throughout, respirations moderately labored at rest, on nasal cannula oxygen) Neuro: Alert and responsive, No focal deficits noted Abdomen: Soft, Non-Tender Skin: Other (Pale in appearance) Musculoskeletal: No Chest Wall Tenderness Extremities: No Clubbing, No Cyanosis, Normal Pulses, Other (+1 nonpitting edema to bilateral lower extremities) Results 12/02/17 03:38 12/02/17 03:38 Lab Results Laboratory Tests 12/01/17 12/01/17 12/02/17 19:48 21:13 03:38 WBC 16.2 H INR Potassium Creatinine Est GFR (Non-Af Amer) Troponin I 0.81 H* < 0.03 Urine Opiates Screen Ur Barbiturates Screen Ur Phencyclidine Scrn Ur Amphetamines Screen U Benzodiazepines Scrn Urine Cocaine Screen U Marijuana (THC) Screen 12/02/17 12/02/17 12/02/17 03:38 03:38 03:38 WBC 15.6 H INR 1.2 Potassium 3.0 L Creatinine 0.42 L Est GFR (Non-Af Amer) > 60 Troponin I Urine Opiates Screen Ur Barbiturates Screen Ur Phencyclidine Scrn Ur Amphetamines Screen U Benzodiazepines Scrn Urine Cocaine Screen U Marijuana (THC) Screen 12/02/17 12/02/17 12/02/17 04:37 06:00 10:11 WBC INR Potassium Creatinine Est GFR (Non-Af Amer) Troponin I < 0.03 < 0.03 Urine Opiates Screen Negative Ur Barbiturates Screen Negative Ur Phencyclidine Scrn Negative Ur Amphetamines Screen Negative U Benzodiazepines Scrn Negative Urine Cocaine Screen Negative U Marijuana (THC) Screen Negative ITS Impressions Chest X-Ray 12/01/17 19:48 IMPRESSION: No acute process. D/ / Junito Hightower MD / Junito Hightower MD Interpreting Provider: Junito Hightower MD Head CT 12/01/17 19:48 IMPRESSION: 1. No acute intracranial abnormality. 2. Mild diffuse atrophy with minimal chronic small vessel ischemic changes. 3. Suspected old lacunar infarct in the right basal ganglia. D/ / Junito Jones MD / Junito Jones MD Interpreting Provider: Junito Jones MD Abdomen/Pelvis CT 12/01/17 19:53 IMPRESSION: 1. No acute abnormality. 2. Urinary bladder dilation. 3. Severe atherosclerosis with occlusion of the right common iliac artery and probable severe stenosis of the left common iliac artery. D/ / 12/01/2017 21:04:12 [facility] [place] Inter[place]ting Provider: Boo Finch MD Lumbar Spine CT 12/01/17 19:53 IMPRESSION: 1. No acute osseous abnormality. 2. Multilevel mild to moderate facet arthrosis and ligamentum flavum thickening and mild degenerative disc disease result in mild central canal encroachment at the L2-3 through L4-L5 levels. 3. Severe atherosclerotic disease. D/ / Mars Hauser MD / Mars Hauser MD Interpreting Provider: Mars Hauser MD Lumbar Spine MRI 12/01/17 21:27 IMPRESSION: No acute abnormalities. Marrow signal heterogeneity suggests red marrow hyperplasia. D/ / Junito Bermudez MD / Junito Bermudez MD Interpreting Provider: Junito Bermudez MD Chest CTA 12/01/17 22:08 IMPRESSION: 1. No evidence of pulmonary embolism or aortic dissection. 2. Severe emphysema. 3. Small focal areas of opacity within the lungs, for example seen within the posterior right upper lung. Although these are relatively minor in volume, given the patient's limited alveolar reserve, these likely are clinically significant, and may represent small foci of pneumonia. 4. There is a least 1 nodular opacity identified with the right upper lobe peripherally for which follow-up should be considered. See recommendations below RECOMMENDATIONS: Fleischner Society guidelines for follow-up and management of incidentally detected pulmonary nodules: Single Solid Nodule: Nodule size less than 6 mm In a low-risk patient, no routine follow-up. In a high-risk patient, optional CT at 12 months. In a high-risk patient, CT at 3-6 months, then CT at 18-24 months. - Low risk patients include individuals with minimal or absent history of smoking and other known risk factors. - High risk patients include individuals with a history or smoking or known risk factors. Radiology 2017 http://pubs.rsna.org/doi/full/10.1148/radiol.[email or web address] D/ / Sandro Roberts MD / Sandro Roberts MD Interpreting Provider: Sandro Roberts MD Active Medications Aspirin (Aspirin) 81 mg PO DAILY ELLIOTT Stop: 06/03/18 09:01 Last Admin: 12/02/17 08:34 Dose: 81 mg Atorvastatin Calcium (Lipitor) 40 mg PO HS ELLIOTT Stop: 06/03/18 21:01 Cefepime HCl 2,000 mg/ Sterile (Water) 20 mls @ 300 mls/hr IVPB Q8HR ELLIOTT Stop: 06/03/18 08:01 Last Infusion: 12/02/17 08:48 Dose: Infused Vancomycin HCl 1,000 mg/ (Sodium Chloride) 250 mls @ 167 mls/hr IVPB Q12H ELLIOTT PRN Reason: Protocol Stop: 06/03/18 10:01 Last Admin: 12/02/17 11:18 Dose: 167 mls/hr Levofloxacin/Dextrose (Levaquin Premix 750mg/150 Ml) 750 mg in 150 mls @ 100 mls/hr IVPB DAILY ELLIOTT PRN Reason: Protocol Stop: 06/03/18 09:01 Last Infusion: 12/02/17 11:18 Dose: Infused Nitroglycerin (Nitroglycerin) 0.4 mg SL Q5MIN PRN PRN Reason: Chest Pain Stop: 06/03/18 03:15 - Imaging and Cardiology Echo: pending - EKG Interpretation EKG results cardiology: personally reviewed, no diagnostic ischemia (ST, 100's) Consult Discharge Plan - Plan Referrals: NONE,PCP [Primary Care Provider] - <Milady Grace - Last Filed: 12/02/17 12:31> Date of Encounter: 12/02/17 - Attending Attestation I have personally performed a face to face evaluation on this patient. I have reviewed and agree with the care plan. History and Exam by me shows: 57-year-old female history of COPD presents with likely COPD exacerbation along with possible pneumonia found to have elevated troponins of 0.81 and subsequently negative troponins 3. An echocardiogram is pending and records from an outside facility also will be obtained for review which would help risk stratify her cardiac status. Currently she denies any chest pain however does have baseline shortness of breath and is bedbound. Further recommendations pending echocardiogram and records from outside facility for invasive versus noninvasive risk stratification. Her initial troponin may be a false lab result to 2 the elevated level followed by negative troponins 3 which is unusual. Assessment and Plan Discussion w patient/family: The assessment and plan as outlined above was discussed with the patient and/or family members who expressed understanding and agreement. All questions were answered. Thank you for involving us in the care of your patient. Please call with any questions. History of Present Illness History of present illness: Ms. Lua is a 57 year old female All Systems Review: The remainder of the systems were reviewed and are negative Physical Examination Vital Signs, Last 4 Hours Temp Pulse Resp BP Pulse Ox 12/02/17 11:30 97.8 F 97 18 92/62 99 Results 12/02/17 03:38 12/02/17 03:38 Lab Results 12/02/17 12/02/17 12/02/17 03:38 03:38 03:38 WBC 15.6 H Hgb 11.6 D Hct 35.4 Plt Count 356 INR 1.2 APTT Sodium Potassium Chloride Carbon Dioxide BUN Creatinine Glucose Calcium Magnesium Total Bilirubin AST ALT Alkaline Phosphatase Troponin I < 0.03 12/02/17 12/02/17 12/02/17 03:38 03:38 06:00 WBC Hgb Hct Plt Count INR APTT 29.6 Sodium 135 L Potassium 3.0 L Chloride 96 L Carbon Dioxide 30 H BUN 12 Creatinine 0.42 L Glucose 106 H Calcium 8.7 Magnesium 1.7 Total Bilirubin 0.4 AST 24 ALT 25 Alkaline Phosphatase 65 Troponin I < 0.03 12/02/17 10:11 WBC Hgb Hct Plt Count INR APTT Sodium Potassium Chloride Carbon Dioxide BUN Creatinine Glucose Calcium Magnesium Total Bilirubin AST ALT Alkaline Phosphatase Troponin I < 0.03
[2017-12-02] MEDS ORDERED: Acetaminophen 325 MG TABLET PO PRN (15:59)
[2017-12-02] MEDS ORDERED: Ibuprofen 800 MG TABLET PO ONE (15:59)
[2017-12-02] MEDS: Pregabalin 50 MG CAPSULE PO SCH (21:09)
[2017-12-02] MEDS: Mirtazapine 15 MG TABLET PO SCH (21:09)
[2017-12-02] MEDS: rOPINIRole 1 MG TABLET PO SCH (21:10)
[2017-12-03] MEDS: Cefepime HCl 2,000 MG in Water for inj. (sterile) 20 ML 20 ML IVPB SCH ×3 (00:28→17:12)
--- NOTE | 2017-12-03 08:28 | Cardiology Progress Note ---
Date of Encounter: 12/03/17 Time of Encounter: 08:25 Assessment and Plan (1) COPD (chronic obstructive pulmonary disease) Current Visit: Yes Status: Acute Per Cardiology: History of COPD (she clarified she does not use home O2). Patient to being managed by primary service with antibiotics. CT results as below: IMPRESSION: 1. No evidence of pulmonary embolism or aortic dissection. 2. Severe emphysema. 3. Small focal areas of opacity within the lungs, for example seen within the posterior right upper lung. Although these are relatively minor in volume, given the patient's limited alveolar reserve, these likely are clinically significant, and may represent small foci of pneumonia. 4. There is a least 1 nodular opacity identified with the right upper lobe peripherally for which follow-up should be considered. Qualifiers: COPD type: emphysema Emphysema type: centrilobular Qualified Code(s): J43.2 - Centrilobular emphysema (2) Elevated troponin Current Visit: Yes Status: Acute Per Cardiology: Denies any history of CAD and has never had heart catheterization. Initial troponin elevated at 0.81, however subsequent 4 troponins have been negative less than 0.03. Patient experiencing acute on COPD exacerbation with suspicious pneumonia. Question if initial troponin is accurate. Clarification : it appears has not recent stress testing. I discussed with patient about proceeding with stress test during current hospital stay, however patient prefers to eat and does not wish to proceed. On aspirin and statin. Cardiology will sign off, re-consult as needed, f/u arranged. Consider non- exercise nuclear stress test if any significant changes. Discussed with primary service. (3) Hypokalemia Current Visit: Yes Status: Acute Per Cardiology: Now 3.3, continue to replace. No significant events noted on telemetry. (4) PAD (peripheral artery disease) Current Visit: Yes Status: Chronic Per Cardiology: RACHEL pending. Consider Vasc c/s if warranted. Discussion w patient/family: The assessment and plan as outlined above was discussed with the patient who expressed understanding and agreement. All questions were answered. Thank you for involving us in the care of your patient. Please call with any questions. Subjective Principal diagnosis: Pneumonia, Elevated trop Interval history: Patient reports shortness of breath has improved. Reports chest discomfort with dry coughing. Patient now confirms no recent stress testing at outside facility. Denies hx of CAD, has never had cath. Denies DM2. Confirms smoking and COPD-- she also clarified she does not use home O2 at home. Objective Vital Signs, Last 4 Hours Temp Pulse Resp BP Pulse Ox 12/03/17 07:47 97.8 F 99 18 111/73 94 General: Conversant, No Apparent Distress HEENT: Atraumatic, Normocephaly Cardiac: Reg Rate and Rhythm, Normal S1 and S2, No Murmur Lungs: Other (diminished throughout, mild concversational dyspnes-- improved) Neuro: Alert and responsive, No focal deficits noted Extremities: No Edema Results 12/03/17 09:00 12/03/17 09:00 Lab Results Laboratory Tests 12/01/17 12/02/17 12/02/17 19:48 03:38 06:00 Troponin I 0.81 H* < 0.03 < 0.03 12/02/17 12/02/17 10:11 15:44 Troponin I < 0.03 < 0.03 Impressions Abdomen/Pelvis CT 12/01/17 19:53 IMPRESSION: 1. No acute abnormality. 2. Urinary bladder dilation. 3. Severe atherosclerosis with occlusion of the right common iliac artery and probable severe stenosis of the left common iliac artery. D/ / 12/01/2017 21:04:12 Boo Finch MD / mookie Interpreting Provider: Boo Finch MD Active Medications Acetaminophen (Tylenol) 650 mg PO Q6HR PRN PRN Reason: Pain Stop: 06/03/18 16:00 Aspirin (Aspirin) 81 mg PO DAILY ELLIOTT Stop: 06/03/18 09:01 Last Admin: 12/02/17 08:34 Dose: 81 mg Atorvastatin Calcium (Lipitor) 40 mg PO HS ELLIOTT Stop: 06/03/18 21:01 Last Admin: 12/02/17 21:09 Dose: 40 mg Fluoxetine HCl (Prozac) 20 mg PO DAILY ELLIOTT PRN Reason: Protocol Stop: 06/04/18 09:01 Guaifenesin (Mucinex) 600 mg PO BID PRN PRN Reason: Congestion Stop: 06/03/18 21:52 Last Admin: 12/02/17 22:23 Dose: 600 mg Cefepime HCl 2,000 mg/ Sterile (Water) 20 mls @ 300 mls/hr IVPB Q8HR ELLIOTT Stop: 06/03/18 08:01 Last Admin: 12/03/17 00:28 Dose: 300 mls/hr Vancomycin HCl 1,000 mg/ (Sodium Chloride) 250 mls @ 167 mls/hr IVPB Q12H ELLIOTT PRN Reason: Protocol Stop: 06/03/18 10:01 Last Admin: 12/02/17 21:10 Dose: 167 mls/hr Levofloxacin/Dextrose (Levaquin Premix 750mg/150 Ml) 750 mg in 150 mls @ 100 mls/hr IVPB DAILY ELLIOTT PRN Reason: Protocol Stop: 06/03/18 09:01 Last Infusion: 12/02/17 11:18 Dose: Infused Mirtazapine (Remeron) 30 mg PO HS [facility] Stop: 06/03/18 21:01 Last Admin: 12/02/17 21:09 Dose: 30 mg Nitroglycerin (Nitroglycerin) 0.4 mg SL Q5MIN PRN PRN Reason: Chest Pain Stop: 06/03/18 03:15 Pregabalin (Lyrica) 100 mg PO BID [facility] Stop: 06/03/18 21:01 Last Admin: 12/02/17 21:09 Dose: 100 mg Promethazine HCl (Phenergan) 12.5 mg PO Q6HR PRN PRN Reason: Nausea Quetiapine Fumarate (Seroquel) 200 mg PO HS [facility] Stop: 06/03/18 21:01 Last Admin: 12/02/17 21:09 Dose: 200 mg Ropinirole HCl (Requip) 0.5 mg PO BID [facility] Stop: 06/03/18 21:01 Last Admin: 12/02/17 21:10 Dose: 0.5 mg - Imaging and Cardiology Echo: pending - EKG Interpretation EKG results cardiology: personally reviewed, normal ECG, sinus rhythm, other ( avg hr 95, few brief epsisodes of atrial tach) Consult Discharge Plan - Plan Referrals: NONE,PCP [Primary Care Provider] -
--- NOTE | 2017-12-03 09:31 | Internal Med Progress Note ---
<Karan Beltran - Last Filed: 12/03/17 10:35> Date of Encounter: 12/03/17 Time of Encounter: 08:30 - Assessment and plan (1) Sepsis Current Visit: Yes Status: Acute Assessment and plan: Sepsis due to community acquired pneumonia 3 SIRS criteria present at admission: Fever, tachycardia, leukocytosis Continues to have tachycardia and leukocytosis Patient complains of worsened dyspnea and productive cough prior to admission CT exam shows small focal areas of opacification in the posterior right upper lung Concerning given patient's overall lung disease No wheezing present on exam Sacral decubitus ulcer also present from patient being bedbound for 1 week Started on cefepime, vancomycin, Levaquin Vancomycin stopped Continue cefepime and Levaquin Breathing treatments as needed We will obtain flu A/P antigens Check urine strep and Legionella antigens We will obtain sputum culture if able Blood cultures 2 preliminarily show no growth Qualifiers: Sepsis type: sepsis due to unspecified organism Qualified Code(s): A41.9 - Sepsis, unspecified organism (2) Community acquired pneumonia Current Visit: Yes Status: Acute Assessment and plan: Patient is resident of custodial facility due to lower extremity weakness and inability to ambulate Continue current pneumonia with risk of MDRO pathogens Plan as above Qualifiers: Laterality: right Lung location: unspecified part of lung Qualified Code( s): J18.9 - Pneumonia, unspecified organism (3) PAD (peripheral artery disease) Current Visit: Yes Status: Acute Assessment and plan: Patient has chronic lower extremity weakness Also reports having pain with ambulation Found to have severe atherosclerosis with occlusion the right common iliac artery and probable severe stenosis of the left common iliac artery on abdomen/ pelvis CT We will consult vascular surgery to address future management of this patient's vascular disease (4) COPD (chronic obstructive pulmonary disease) Current Visit: Yes Status: Acute Assessment and plan: No wheezes heard on exam Not in exacerbation currently Plan as above Qualifiers: COPD type: emphysema Emphysema type: centrilobular Qualified Code(s): J43.2 - Centrilobular emphysema (5) Elevated troponin Current Visit: Yes Status: Acute Assessment and plan: Patient had 0.81 troponin at admission All repeat troponins have been <0.03 ECG unconcerning Possible error caused elevated reading Cardiology is following Echo showed EF 65% with mild left ventricular diastolic dysfunction Continue management per cardiology (6) Decubitus ulcer Current Visit: Yes Status: Acute Assessment and plan: Patient has sickle decubitus ulcer from being bedbound for last week Unstageable at this point We will consult wound care Patient on Levaquin and cefepime for pneumonia currently Qualifiers: Pressure ulcer location: contiguous region involving back and buttock Pressure ulcer stage: unstageable Laterality: unspecified laterality Qualified Code(s): L89.45 - Pressure ulcer of contiguous site of back, buttock and hip, unstageable (7) DVT prophylaxis Current Visit: Yes Status: Acute Assessment and plan: Patient previously on heparin drip, now stopped We will continue heparin subcutaneous (8) Hypokalemia Current Visit: Yes Status: Acute Assessment and plan: Replace with 40 mEq by mouth potassium Check in a.m. - Subjective Interval history: Patient reports having continued dry cough and mild shortness of breath. She also reports intermittent chest heaviness. She denies fever/chills, denies nausea/vomiting, denies anorexia. Reports continued pain in her sacrum. She does report mild improvement in her leg weakness, but does state this is been a chronic issue for many years. She reports having weakness in both her legs about equally, she also reports having some pain when she is using her legs. - Constitutional Vitals: Temp Pulse Resp BP Pulse Ox 97.8 F 99 18 111/73 94 12/03/17 07:47 12/03/17 07:47 12/03/17 07:47 12/03/17 07:47 12/03/17 07:47 General appearance: Present: A&O X 3, pleasant, answers questions appropriately Exam: General: Cooperative, pleasant, no acute distress, alert and oriented 3, answers questions appropriately HEENT: Normocephalic, atraumatic, Conjunctiva pink, sclera anicteric, oral mucosa moist Respiratory: No accessory muscle usage, clear to auscultation bilaterally, no wheezes/rhonchi/rales appreciated Cardiovascular: Regular rate and rhythm, S1 and S2 present, no murmurs/rubs/ gallops/clicks appreciated GI/abdominal: Nondistended, nontender, soft, normal bowel sounds, no peritoneal signs Extremities: Mild calf tenderness, no pedal edema appreciated, slightly cooler lower extremities Neurological: Alert and oriented 3, no facial droop, mild bilateral leg weakness Skin: Dry, intact, normal color Internal Medicine: Result - Labs CBC & Chem 7: 12/03/17 09:00 12/03/17 09:00 Labs: Cardiac Enzymes 12/02/17 12/02/17 Range/Units 10:11 15:44 Troponin I < 0.03 < 0.03 (< 0.04) ng/mL - ABG Interpretation ABG results: PT/INR, D-dimer PT 12.7 Seconds (9.4-12.1) H 12/02/17 03:38 Consult Discharge Plan - Plan Referrals: NONE,PCP [Primary Care Provider] - <En Kilpatrick H - Last Filed: 12/03/17 17:06> Date of Encounter: 12/03/17 - Constitutional Vitals: Temp Pulse Resp BP Pulse Ox 98.1 F 97 17 101/61 94 12/03/17 16:16 12/03/17 16:16 12/03/17 16:16 12/03/17 16:16 12/03/17 16:16 Internal Medicine: Result - Labs CBC & Chem 7: 12/03/17 09:00 12/03/17 09:00 Labs: Short CBC 12/03/17 Range/Units 09:00 WBC 16.1 H (4.3-11.1) K/mcL Hgb 11.3 L (11.5-15.4) g/dL Hct 36.7 (35.3-44.9) % Plt Count 334 (140-400) K/mcL Neutrophils # 11.0 H (1.6-8.9) K/mcL BMP 12/03/17 09:00 Sodium 142 Potassium 3.3 L Chloride 105 Carbon Dioxide 30 H BUN 13 Creatinine 0.40 L Glucose 116 H Calcium 8.6 - ABG Interpretation ABG results: PT/INR, D-dimer PT 12.7 Seconds (9.4-12.1) H 12/02/17 03:38 - Impressions Impressions Echocardiogram 12/03/17 03:14 Impressions: LVEF 65%. Mild left ventricular diastolic dysfunction. Normal right ventricular structure and function. No significant valvular dysfunction. No pulmonary hypertension. Left Ventricular Wall Motion: Rest Echo Findings All wall segments showed normal motion. Findings: Study Quality * Technically adequate exam. ECG Findings * Sinus tachycardia. Left Ventricle * LVEF 65%. * Normal LV chamber size, wall thickness and function. * Mild left ventricular diastolic dysfunction. Right Ventricle * Normal right ventricular structure and function. Left Atrium * Normal left atrial size. Right Atrium * Normal right atrial size. Aortic Valve * No aortic regurgitation. * Aortic valve not well visualized. * No aortic stenosis. Mitral Valve * No mitral regurgitation. * No mitral stenosis. * Mildly thickened mitral valve leaflets. Tricuspid Valve * Tricuspid valve not well visualized. * Trace tricuspid regurgitation. * Estimated RA pressure is 3 mmHg. * Estimated RVSP is 26 mmHg. * No pulmonary hypertension. Pulmonic Valve * Pulmonic valve is not well visualized. * No pulmonic stenosis. * No pulmonic regurgitation. Pulmonary Artery * Pulmonary artery not well visualized. Aorta * Not well visualized. Pericardium * There is no pericardial effusion present. - Attending Attestation sepsis 2ry to gram negative pneumonia, elevated troponin, likely lab error RACHEL to be performed I examined this patient and my medical decision-making was reviewed with the Resident Physician. I agree with the documented findings, disposition and treatment plan as described except to the extent set forth below.
[2017-12-03 09:36] LABS: Basophils # 0.1 K/mcL (0.0-0.2); Basophils % 0.4 %; Eosinophils # 0.2 K/mcL (0.0-0.6); Eosinophils % 1.3 %; Hematocrit 36.7 % (35.3-44.9); Hemoglobin 11.3 g/dL (11.5-15.4); Immature Granulocytes % 4.3 % (0-4); Lymphocytes # 2.9 K/mcL (0.6-4.6); Lymphocytes % 17.7 %; Mean Corpuscular HGB Conc 30.8 g/dL (31.6-35.5); Mean Corpuscular Hemoglobin 28.4 pg (28.0-33.3); Mean Corpuscular Volume 92.2 fL (83.0-100.0); Mean Platelet Volume 11.8 fL (9.4-12.4); Monocytes # 1.3 K/mcL (0.0-1.3); Monocytes % 8.2 %; Platelet Count 334 K/mcL (140-400); Red Blood Count 3.98 M/mcL (3.82-4.97); Red Cell Distribution Width 14.6 % (11.5-14.5); Segmented Neutrophils % 68.1 %
[2017-12-03] MEDS: Aspirin 81 MG TAB.CHEW PO SCH (09:55)
[2017-12-03] MEDS: FLUoxetine 20 MG CAPSULE PO SCH (09:55)
[2017-12-03] MEDS: Pregabalin 50 MG CAPSULE PO SCH ×2 (09:55→23:26)
[2017-12-03] MEDS: Levofloxacin 750 MG/150 ML 750 MG/150 ML BAG IVPB SCH (09:56)
[2017-12-03] MEDS: rOPINIRole 1 MG TABLET PO SCH ×2 (10:02→23:26)
[2017-12-03 10:07] LABS: BUN/Creatinine Ratio 33 (6-26); Blood Urea Nitrogen 13 mg/dL (6-20); Calcium 8.6 mg/dL (8.6-10.3); Carbon Dioxide 30 mEq/L (23-29); Chloride 105 mEq/L (98-107); Glucose 116 mg/dL (70-105); Osmolality,Calculated 295 (280-300); Potassium 3.3 mEq/L (3.5-5.1); Sodium 142 mEq/L (136-145); eGFR For African Americans > 60 (> 60); eGFR For Non-African Americans > 60 (> 60)
[2017-12-03] MEDS ORDERED: Ipratropium/Albuterol Neb 3 ML IH PRN (10:49)
[2017-12-03] MEDS ORDERED: traMADol 50 MG TABLET PO PRN (11:22)
--- NOTE | 2017-12-03 11:41 | Vascular/Endovasc Consult Note ---
Date of Encounter: 12/03/17 Time of Encounter: 12:30 Assessment and Plan (1) Atherosclerosis of jamul arteries of extremities with intermittent claudication, bilateral legs Current Visit: Yes Status: Chronic The pathophysiolgoy and natural history of peripheral vascular disease was discussed with the patient and all questions were answered. The patient has a diminished pulse exam including the femoral vessels. Her lower extremity arterial imaging reveals no significant femoral, popliteal or tibial artery stenosis. Her CT reveals aortoiliac calcifications. Aortoiliac artery occlusion is suspected. She has limited mobility. She denies any rest pain, ulceration or gangrene. She was counseled regarding atheorsclerotic risk factor reduction. She appears to have chronic peripheral vascular disease without acute limb ischemia. There is no indication for acute intervention. Await RACHEL results. (2) Back pain Current Visit: Yes Status: Chronic Qualifiers: Back pain location: low back pain Chronicity: chronic Back pain laterality: unspecified Sciatica presence: unspecified whether sciatica present Qualified Code(s): M54.5 - Low back pain; G89.29 - Other chronic pain ; G89.29 - Other chronic pain (3) COPD (chronic obstructive pulmonary disease) Current Visit: Yes Status: Chronic Qualifiers: COPD type: emphysema Emphysema type: centrilobular Qualified Code(s): J43.2 - Centrilobular emphysema (4) Tobacco abuse Current Visit: Yes Status: Chronic She was counseled regarding smoking cessation. - History of Present Illness Consult date: 12/03/17 Requesting physician: Karan Beltran Consult reason: Peripheral vascular disease Chief complaint: Iliac artery occlusion History of present illness: Ms. Lua is a 57 year old female with a history of chronic lower back pain with lumbar radiculopathy, COPD, hepatitis and tobacco abuse who presented to the ER with generalized weakness. The patient reports that she had limited mobility for several days and developed a sacral decubitus ulceration. She was admitted to [facility] for further evaluation. As part of her evaluation she underwent a CT scan which revealed severe aortoiliac calcifications. Vascular Surgery was consulted for further evaluation. The patient reoprts that her mobility has been limited by her chronic back pain. She denies claudication, rest pain, ulceration or gangrene. She denies chest pain or shortness of breath. Past Med Surg Social Fam HX - Past Medical History Medical history: asthma, COPD, hepatitis, peripheral artery disease, other ( chronic lower back pain) Psychiatric history: no psych history - Social History Smoking Status: Light tobacco smoker Smokeless Tobacco Status: No Alcohol use: none Drug use: marijuana Medications and Allergies FLUoxetine HCl [PROzac] 20 mg PO DAILY 12/02/17 [History] Ibuprofen [Motrin] 800 mg PO Q8HR PRN 12/02/17 [History] Mirtazapine [Remeron] 30 mg PO HS 12/02/17 [History] Pregabalin [Lyrica] 100 mg PO BID 12/02/17 [History] Promethazine [Phenergan] 12.5 mg PO Q6HR PRN 12/02/17 [History] Quetiapine Fumarate [Seroquel Xr] 200 mg PO HS 12/02/17 [History] Ropinirole HCl [Requip] 0.5 mg PO BID 12/02/17 [History] 3 Allergy/AdvReac Type Severity Reaction Status Date / Time Penicillins [PCN] Allergy Rash Verified 12/01/17 19:31 All Systems Review: The remainder of the systems were reviewed and are negative - Constitutional Constitutional: malaise, weakness, no chills, no fever(s) - Cardiovascular Cardiovascular: no chest pain at rest, no dyspnea at rest - Gastrointestinal Gastrointestinal: no abdominal pain Exam Vital Signs, Last 4 Hours Temp Pulse Resp BP Pulse Ox 12/03/17 10:28 97.9 F 95 18 106/72 96 12/03/17 07:47 97.8 F 99 18 111/73 94 General: Present: Conversant, No Apparent Distress HEENT: Present: Atraumatic, Normocephaly, Trachea midline, Pupils equal Neck: Absent: JVD, Lymphadenopathy, Left Carotid bruit, Right Carotid bruit Cardiac: Present: Reg Rate and Rhythm, Normal S1 and S2 Lungs: Present: Normal Breath Sounds. Absent: No Wheeze, Rales, Rhonchi Neuro: Present: Alert and responsive, Cranial nerves grossly intact, Motor nerves grossly intact, Sensory nerves grossly intact Abdomen: Present: Soft, Non-tender. Absent: Masses Vascular: Present: Normal capillary refill, Pulse, absent (bilateral femoral, popliteal and tibial pulses absent), Color/Temperature (warm). Absent: Cyanosis , Edema Skin: Present: No rashes noted on visualized skin. Absent: Wound/ulcer(s) Consult Discharge Plan - Plan Additional Instructions: Wound Care: unstageable pressure ulcer of the coccyx/sacrum - cleanse daily with soap and water - apply Santyl and Gentamicin Ointments 50:50 nickel thick to the necrosis - cover with adaptic gauze 2 layers - pad with 5x9 ABD - hold secure with medipore tape - change daily and prn if soiled. Referrals: Arpit Lea MD [Partnered Physician] - 12/10/17 9:45 am (Follow-up in Outpatient wound care center- [phone]) NONE,PCP [Primary Care Provider] - (will see d/c needs at later time)
[2017-12-03] MEDS ORDERED: *HR* Nalbuphine 20 MG/ML AMPUL IVP PRN (16:24)
[2017-12-03] MEDS: *HR* Heparin 5,000 UNIT/ML VIAL SQ SCH (17:12)
[2017-12-03] MEDS: Gentamicin Oint 15 GM TUBE TP SCH (17:13)
[2017-12-03] MEDS: Mirtazapine 15 MG TABLET PO SCH (23:26)
[2017-12-03] MEDS ORDERED: *HR* HYDROcodone/Acet 5/325 mg TABLET PO PRN (23:55)
[2017-12-04] MEDS ORDERED: *HR* HYDROcodone/Acet 5/325 mg TABLET PO PRN (00:03)
[2017-12-04] MEDS: Cefepime HCl 2,000 MG in Water for inj. (sterile) 20 ML 20 ML IVPB SCH ×3 (01:45→22:49)
[2017-12-04 05:26] LABS: Basophils # 0.1 K/mcL (0.0-0.2); Basophils % 0.5 %; Eosinophils # 0.2 K/mcL (0.0-0.6); Eosinophils % 1.1 %; Hematocrit 34.5 % (35.3-44.9); Hemoglobin 11.1 g/dL (11.5-15.4); Immature Granulocytes % 3.6 % (0-4); Lymphocytes # 3.4 K/mcL (0.6-4.6); Lymphocytes % 23.5 %; Mean Corpuscular HGB Conc 32.2 g/dL (31.6-35.5); Mean Corpuscular Hemoglobin 29.1 pg (28.0-33.3); Mean Corpuscular Volume 90.6 fL (83.0-100.0); Mean Platelet Volume 11.2 fL (9.4-12.4); Monocytes # 1.3 K/mcL (0.0-1.3); Monocytes % 8.6 %; Neutrophils # 9.2 K/mcL (1.6-8.9); Platelet Count 403 K/mcL (140-400); Red Blood Count 3.81 M/mcL (3.82-4.97); Red Cell Distribution Width 14.6 % (11.5-14.5); Segmented Neutrophils % 62.7 %
[2017-12-04 05:42] LABS: BUN/Creatinine Ratio 24 (6-26); Blood Urea Nitrogen 9 mg/dL (6-20); Calcium 8.7 mg/dL (8.6-10.3); Carbon Dioxide 28 mEq/L (23-29); Chloride 105 mEq/L (98-107); Glucose 95 mg/dL (70-105); Osmolality,Calculated 288 (280-300); Sodium 140 mEq/L (136-145); eGFR For African Americans > 60 (> 60); eGFR For Non-African Americans > 60 (> 60)
[2017-12-04] MEDS: *HR* Heparin 5,000 UNIT/ML VIAL SQ SCH ×2 (06:12→17:37)
[2017-12-04] MEDS: Levofloxacin 750 MG/150 ML 750 MG/150 ML BAG IVPB SCH (07:57)
[2017-12-04] MEDS: Pregabalin 50 MG CAPSULE PO SCH ×2 (07:58→19:49)
[2017-12-04] MEDS: rOPINIRole 1 MG TABLET PO SCH ×2 (07:58→19:49)
[2017-12-04] MEDS: FLUoxetine 20 MG CAPSULE PO SCH (07:58)
[2017-12-04] MEDS: Gentamicin Oint 15 GM TUBE TP SCH (07:58)
[2017-12-04] MEDS: Aspirin 81 MG TAB.CHEW PO SCH (07:58)
--- NOTE | 2017-12-04 08:50 | Internal Med Progress Note ---
<Karan Beltran - Last Filed: 12/04/17 08:48> Date of Encounter: 12/04/17 Time of Encounter: 08:35 - Assessment and plan (1) Sepsis Current Visit: Yes Status: Acute Assessment and plan: Sepsis due to community acquired pneumonia 3 SIRS criteria present at admission: Fever, tachycardia, leukocytosis Continues to have tachycardia and leukocytosis Patient complains of worsened dyspnea and productive cough prior to admission CT exam shows small focal areas of opacification in the posterior right upper lung Concerning given patient's overall lung disease No wheezing present on exam Sacral decubitus ulcer also present from patient being bedbound for 1 week Started on cefepime, vancomycin, Levaquin Flu A/P antigens negative Strep pneumoniae and legionella antigens negative Blood cultures 2 preliminarily show no growth Vancomycin stopped on 12/03 Continue cefepime and Levaquin We will look to de-escalate to Levaquin monotherapy if improvement seen Breathing treatments as needed We will obtain sputum culture if able Qualifiers: Sepsis type: sepsis due to unspecified organism Qualified Code(s): A41.9 - Sepsis, unspecified organism (2) Community acquired pneumonia Current Visit: Yes Status: Acute Assessment and plan: Patient is resident of assisted facility due to lower extremity weakness and inability to ambulate Continue current pneumonia with risk of MDRO pathogens Plan as above Qualifiers: Laterality: right Lung location: unspecified part of lung Qualified Code( s): J18.9 - Pneumonia, unspecified organism (3) PAD (peripheral artery disease) Current Visit: Yes Status: Chronic Assessment and plan: Patient has chronic lower extremity weakness Also reports having pain with ambulation Found to have severe atherosclerosis with occlusion the right common iliac artery and probable severe stenosis of the left common iliac artery on abdomen/ pelvis CT We will consult vascular surgery to address future management of this patient's vascular disease (4) COPD (chronic obstructive pulmonary disease) Current Visit: Yes Status: Acute Assessment and plan: No wheezes heard on exam Not in exacerbation currently Plan as above Qualifiers: COPD type: emphysema Emphysema type: centrilobular Qualified Code(s): J43.2 - Centrilobular emphysema (5) Decubitus ulcer Current Visit: Yes Status: Acute Assessment and plan: Patient has sickle decubitus ulcer from being bedbound for last week Per wound care: Extensive wound Some serosanguinous drainage No odor or erythema Possibly deep We will consult wound care Surgery has been consulted as well Patient on Levaquin and cefepime for pneumonia currently Qualifiers: Pressure ulcer location: contiguous region involving back and buttock Pressure ulcer stage: unstageable Laterality: unspecified laterality Qualified Code(s): L89.45 - Pressure ulcer of contiguous site of back, buttock and hip, unstageable (6) DVT prophylaxis Current Visit: Yes Status: Acute Assessment and plan: Patient previously on heparin drip, now stopped We will continue heparin subcutaneous (7) Hypokalemia Current Visit: Yes Status: Acute Assessment and plan: Current potassium 3.0 Replace with 40 mEq by mouth potassium Check in a.m. (8) Elevated troponin Current Visit: Yes Status: Resolved Assessment and plan: Patient had 0.81 troponin at admission All repeat troponins have been <0.03 ECG unconcerning Possible error caused elevated reading Cardiology is following Echo showed EF 65% with mild left ventricular diastolic dysfunction Continue management per cardiology - Subjective Interval history: Patient reports continued dry cough, but no dyspnea today. She denies chest pain, chest pressure, fever, nausea, anorexia. She does report continued pain in her lower legs especially when standing. She also reports feeling significantly cold yesterday. Continued pain in her sacrum that is worse with sitting, she also reports tenderness in bilateral legs. She does report having some difficulty with any permanents to compress her legs. She reports that cause pain and yesterday when she had the compression socks on noticed that her extremities were turning slightly purple. - Constitutional Vitals: Temp Pulse Resp BP Pulse Ox 98.1 F 100 17 106/71 91 12/04/17 07:16 12/04/17 07:16 12/04/17 07:16 12/04/17 07:16 12/04/17 07:16 General appearance: Present: A&O X 3, pleasant, answers questions appropriately Exam: General: Cooperative, pleasant, no acute distress, alert and oriented 3, answers questions appropriately HEENT: Normocephalic, atraumatic, Conjunctiva pink, sclera anicteric, oral mucosa moist Respiratory: No accessory muscle usage, clear to auscultation bilaterally, no wheezes/rhonchi/rales appreciated Cardiovascular: Regular rate and rhythm, S1 and S2 present, no murmurs/rubs/ gallops/clicks appreciated GI/abdominal: Nondistended, nontender, soft, normal bowel sounds, no peritoneal signs Extremities: No calf tenderness, no pedal edema appreciated, slightly cooler lower extremities, reduced pulses in bilateral lower extremities Neurological: Alert and oriented 3, no facial droop, mild bilateral leg weakness Skin: Dry, intact, normal color Internal Medicine: Result - Labs CBC & Chem 7: 12/04/17 04:02 12/04/17 04:02 Labs: Short CBC 12/03/17 12/04/17 Range/Units 09:00 04:02 WBC 16.1 H 14.6 H (4.3-11.1) K/mcL Hgb 11.3 L 11.1 L (11.5-15.4) g/dL Hct 36.7 34.5 L (35.3-44.9) % Plt Count 334 403 H (140-400) K/mcL Neutrophils # 11.0 H 9.2 H (1.6-8.9) K/mcL BMP 12/03/17 12/04/17 09:00 04:02 Sodium 142 140 Potassium 3.3 L 3.0 L Chloride 105 105 Carbon Dioxide 30 H 28 BUN 13 9 Creatinine 0.40 L 0.38 L Glucose 116 H 95 Calcium 8.6 8.7 - ABG Interpretation ABG results: PT/INR, D-dimer PT 12.7 Seconds (9.4-12.1) H 12/02/17 03:38 - Impressions Impressions Echocardiogram 12/03/17 03:14 Impressions: LVEF 65%. Mild left ventricular diastolic dysfunction. Normal right ventricular structure and function. No significant valvular dysfunction. No pulmonary hypertension. Left Ventricular Wall Motion: Rest Echo Findings All wall segments showed normal motion. Findings: Study Quality * Technically adequate exam. ECG Findings * Sinus tachycardia. Left Ventricle * LVEF 65%. * Normal LV chamber size, wall thickness and function. * Mild left ventricular diastolic dysfunction. Right Ventricle * Normal right ventricular structure and function. Left Atrium * Normal left atrial size. Right Atrium * Normal right atrial size. Aortic Valve * No aortic regurgitation. * Aortic valve not well visualized. * No aortic stenosis. Mitral Valve * No mitral regurgitation. * No mitral stenosis. * Mildly thickened mitral valve leaflets. Tricuspid Valve * Tricuspid valve not well visualized. * Trace tricuspid regurgitation. * Estimated RA pressure is 3 mmHg. * Estimated RVSP is 26 mmHg. * No pulmonary hypertension. Pulmonic Valve * Pulmonic valve is not well visualized. * No pulmonic stenosis. * No pulmonic regurgitation. Pulmonary Artery * Pulmonary artery not well visualized. Aorta * Not well visualized. Pericardium * There is no pericardial effusion present. - VTE Documentation of Mechanical Device: Graduated compression elastic hosiery Consult Discharge Plan - Plan Referrals: NONE,PCP [Primary Care Provider] - (will see d/c needs at later time) <Lei Sanchez - Last Filed: 12/04/17 17:49> Date of Encounter: 12/04/17 - Assessment and plan (1) Pneumonia Current Visit: Yes Status: Suspected Assessment and plan: Pt with bilateral small infiltrates. Possible pneumonia. Will continue IV abx. Qualifiers: Pneumonia type: due to other aerobic Gram-negative bacteria Laterality: bilateral Lung location: lower lobe of lung Qualified Code(s): J15.6 - Pneumonia due to other Gram-negative bacteria (2) Sepsis Current Visit: Yes Status: Resolved Qualifiers: Sepsis type: sepsis due to unspecified organism Qualified Code(s): A41.9 - Sepsis, unspecified organism (3) Hypokalemia Current Visit: Yes Status: Acute (4) NSTEMI (non-ST elevated myocardial infarction) Current Visit: Yes Status: Ruled-out Assessment and plan: Appreciate cardiology input. (5) COPD (chronic obstructive pulmonary disease) Current Visit: Yes Status: Chronic Qualifiers: COPD type: emphysema Emphysema type: centrilobular Qualified Code(s): J43.2 - Centrilobular emphysema (6) Decubitus ulcer Current Visit: Yes Status: Chronic Qualifiers: Pressure ulcer location: contiguous region involving back and buttock Pressure ulcer stage: unstageable Laterality: unspecified laterality Qualified Code(s): L89.45 - Pressure ulcer of contiguous site of back, buttock and hip, unstageable (7) PAD (peripheral artery disease) Current Visit: Yes Status: Chronic (8) Tobacco abuse Current Visit: Yes Status: Chronic (9) Chronic pain Current Visit: Yes Status: Chronic Qualifiers: Chronic pain type: chronic pain syndrome Qualified Code(s): G89.4 - Chronic pain syndrome - Constitutional Vitals: Temp Pulse Resp BP Pulse Ox 98.8 F 102 16 111/73 96 12/04/17 15:32 12/04/17 15:32 12/04/17 15:32 12/04/17 15:32 12/04/17 15:32 Internal Medicine: Result - Labs CBC & Chem 7: 12/04/17 04:02 12/04/17 04:02 Labs: Short CBC 12/04/17 Range/Units 04:02 WBC 14.6 H (4.3-11.1) K/mcL Hgb 11.1 L (11.5-15.4) g/dL Hct 34.5 L (35.3-44.9) % Plt Count 403 H (140-400) K/mcL Neutrophils # 9.2 H (1.6-8.9) K/mcL BMP 12/04/17 04:02 Sodium 140 Potassium 3.0 L Chloride 105 Carbon Dioxide 28 BUN 9 Creatinine 0.38 L Glucose 95 Calcium 8.7 - ABG Interpretation ABG results: PT/INR, D-dimer PT 12.7 Seconds (9.4-12.1) H 12/02/17 03:38 - Attending Attestation I examined this patient and my medical decision-making was reviewed with the Resident Physician on 12/04/17. I agree with the documented findings, disposition and treatment plan as described except to the extent set forth below. Ms Lua is currently admitted for sepsis related to acute pneumonia. She remains moderate to high risk due to potential for worsening clinical status. Ms Lua is complaining of pain in her back and lags. Says it is worse with exertion. No fever or chills. Still with some cough and dyspnea. No GI issues. ABIs done today and is to have CTA of her legs. Exam alert Comfortable Mucus membranes dry Heart reg No wheeze Abd soft No edema I/P 1. Sepsis - resolved 2. PNA - continue abx for now 3. Chronic pain 4. Abnl ABIs Further diagnoses and plan as above.
[2017-12-04] MEDS ORDERED: Acetaminophen 325 MG TABLET PO PRN (09:14)
[2017-12-04] MEDS ORDERED: traMADol 50 MG TABLET PO PRN (09:14)
--- NOTE | 2017-12-04 13:15 | Vascular/[facility] Progress Note ---
Date of Encounter: 12/04/17 Time of Encounter: 12:45 - Assessment and plan (1) Atherosclerosis of [place] arteries of extremities with intermittent claudication, bilateral legs Status: Chronic The patient continues to have intact sensation and motor function in the bilateral lower extremities. She has no dependent rubor, no ulcers, no gangrene and no rest pain. Her ABIs are consistent with severe disease bilaterally. She has been scheduled for a CTA of the aorta with runoff. (2) Decubitus ulcer Status: Acute Qualifiers: Pressure ulcer location: contiguous region involving back and buttock Pressure ulcer stage: unstageable Laterality: unspecified laterality Qualified Code(s): L89.45 - Pressure ulcer of contiguous site of back, buttock and hip, unstageable (3) COPD (chronic obstructive pulmonary disease) Status: Chronic Qualifiers: COPD type: emphysema Emphysema type: centrilobular Qualified Code(s): J43.2 - Centrilobular emphysema (4) Tobacco abuse Status: Chronic She was counseled regarding smoking cessation. - Subjective Interval history: The patient reports chronic lower back pain. She denies any leg pain today. She reports adequate pain control. She denies chest pain or shortness of breath. Vital Signs, Last 4 Hours Temp Pulse Resp BP Pulse Ox 12/04/17 11:39 98.9 F 101 16 101/66 95 - Physical Examination General: Present: Conversant, No Apparent Distress Neck: Absent: JVD Cardiac: Present: Reg Rate and Rhythm, Normal S1 and S2 Lungs: Present: Normal Breath Sounds, No Wheeze, Rales, Rhonchi Neuro: Present: Alert and responsive, No focal deficits noted, Motor nerves grossly intact, Sensory nerves grossly intact Vascular: Present: Normal capillary refill, Pulse, absent (bilateral femoral through ribial pulses absent. Monophasic pedal signals bilaterally) Abdomen: Present: Soft, Non-tender Skin: Present: Wound/ulcer(s) - VTE Documentation of Mechanical Device: Graduated compression elastic hosiery Results 12/05/17 04:00 12/05/17 04:00 Lab Results, Last 24 hours 12/04/17 12/04/17 04:02 04:02 WBC 14.6 H Hgb 11.1 L Hct 34.5 L Plt Count 403 H Sodium 140 Potassium 3.0 L Chloride 105 Carbon Dioxide 28 BUN 9 Creatinine 0.38 L Glucose 95 Calcium 8.7 - Imaging / Other Tests Non Invasive Vascular Testing: report reviewed, image reviewed Consult Discharge Plan - Plan Instructions: Levofloxacin (By mouth) Additional Instructions: Wound Care: unstageable pressure ulcer of the coccyx/sacrum - cleanse daily with soap and water - apply Santyl and Gentamicin Ointments 50:50 nickel thick to the necrosis - cover with adaptic gauze 2 layers - pad with 5x9 ABD - hold secure with medipore tape - change daily and prn if soiled. She will need to follow-up with wound care for continued management and possible repeat debridement. She will need follow-up with vascular surgery to assess and potentially surgically correct/bypass her PAD. Continue primary care follow-up for her COPD and overall health. Please return to emergency room if worsened shortness of breath, development chest pain, increased weakness lower extremity, increased pain in lower extremities, or development of fever. Take all medications as prescribed: Levaquin 750 mg daily for 2 days Aspirin 81 mg daily Apply Santyl cream and gentamicin ointments with wound dressings per wound care structures Referrals: Arpit Lea MD [Partnered Physician] - 12/10/17 9:45 am (Follow-up in Outpatient wound care center- If you need to change your appointment time, please call [phone]) NONE,PCP [Primary Care Provider] - (will see d/c needs at later time) Prescriptions: HYDROcodone/Acet 5/325 mg [[place] 5-325 mg] 1 tab PO Q6HR PRN 5 Days #20 tablet PRN Reason: Severe Pain Aspirin 81 mg PO DAILY #30 tab.chew Collagenase Oint [Santyl] 1 appl TP DAILY #1 tube Gentamicin Oint [Garamycin] 1 appl TP DAILY #1 tube levoFLOXacin [Levaquin] 750 mg PO DAILY #2 tablet
[2017-12-04] MEDS: Mirtazapine 15 MG TABLET PO SCH (19:49)
[2017-12-04] MEDS: *HR* HYDROcodone/Acet 5/325 mg TABLET PO PRN (20:05)
[2017-12-05 04:39] LABS: Basophils # 0.1 K/mcL (0.0-0.2); Basophils % 0.5 %; Eosinophils # 0.2 K/mcL (0.0-0.6); Eosinophils % 1.8 %; Hematocrit 35.5 % (35.3-44.9); Hemoglobin 10.9 g/dL (11.5-15.4); Immature Granulocytes % 4.2 % (0-4); Lymphocytes # 3.6 K/mcL (0.6-4.6); Lymphocytes % 31.5 %; Mean Corpuscular HGB Conc 30.7 g/dL (31.6-35.5); Mean Corpuscular Hemoglobin 28.5 pg (28.0-33.3); Mean Corpuscular Volume 92.9 fL (83.0-100.0); Monocytes % 8.6 %; Nucleated Red Blood Cells 0.2 /100 WBC (0); Platelet Count 451 K/mcL (140-400); Red Blood Count 3.82 M/mcL (3.82-4.97); Red Cell Distribution Width 14.8 % (11.5-14.5); Segmented Neutrophils % 53.4 %
[2017-12-05 04:50] LABS: BUN/Creatinine Ratio 29 (6-26); Blood Urea Nitrogen 11 mg/dL (6-20); Calcium 8.7 mg/dL (8.6-10.3); Carbon Dioxide 30 mEq/L (23-29); Chloride 104 mEq/L (98-107); Glucose 92 mg/dL (70-105); Magnesium 1.5 mg/dL (1.6-2.6); Osmolality,Calculated 291 (280-300); Phosphorous 3.1 mg/dL (2.7-4.5); Potassium 3.6 mEq/L (3.5-5.1); Sodium 141 mEq/L (136-145); eGFR For African Americans > 60 (> 60); eGFR For Non-African Americans > 60 (> 60)
[2017-12-05] MEDS: *HR* HYDROcodone/Acet 5/325 mg TABLET PO PRN ×3 (05:06→17:15)
[2017-12-05] MEDS: *HR* Heparin 5,000 UNIT/ML VIAL SQ SCH ×2 (05:06→17:15)
[2017-12-05] MEDS: Levofloxacin 750 MG/150 ML 750 MG/150 ML BAG IVPB SCH (08:38)
[2017-12-05] MEDS: Aspirin 81 MG TAB.CHEW PO SCH (08:39)
[2017-12-05] MEDS: Cefepime HCl 2,000 MG in Water for inj. (sterile) 20 ML 20 ML IVPB SCH ×2 (08:39→14:57)
[2017-12-05] MEDS: Pregabalin 50 MG CAPSULE PO SCH ×2 (08:39→19:45)
[2017-12-05] MEDS: rOPINIRole 1 MG TABLET PO SCH ×2 (08:39→19:45)
[2017-12-05] MEDS: FLUoxetine 20 MG CAPSULE PO SCH (08:39)
[2017-12-05] MEDS: Gentamicin Oint 15 GM TUBE TP SCH (08:40)
--- NOTE | 2017-12-05 09:17 | Internal Med Progress Note ---
<Karan Beltran - Last Filed: 12/05/17 10:27> Date of Encounter: 12/05/17 Time of Encounter: 08:45 - Assessment and plan (1) Sepsis Current Visit: Yes Status: Acute Assessment and plan: Sepsis due to community acquired pneumonia 3 SIRS criteria present at admission: Fever, tachycardia, leukocytosis Continues to have tachycardia and leukocytosis Patient complains of worsened dyspnea and productive cough prior to admission CT exam shows small focal areas of opacification in the posterior right upper lung Concerning given patient's overall lung disease No wheezing present on exam Sacral decubitus ulcer also present from patient being bedbound for 1 week Started on cefepime, vancomycin, Levaquin Flu A/P antigens negative Strep pneumoniae and legionella antigens negative Blood cultures 2 preliminarily show no growth Vancomycin stopped on 12/03 Continue cefepime and Levaquin We will wait to de-escalate antibiotics until a clear picture of the state of her ulcers is known Breathing treatments as needed We will obtain sputum culture if able Qualifiers: Sepsis type: sepsis due to unspecified organism Qualified Code(s): A41.9 - Sepsis, unspecified organism (2) Community acquired pneumonia Current Visit: Yes Status: Acute Assessment and plan: Patient is resident of nursing home facility due to lower extremity weakness and inability to ambulate Continue current pneumonia with risk of MDRO pathogens Plan as above Qualifiers: Laterality: right Lung location: unspecified part of lung Qualified Code( s): J18.9 - Pneumonia, unspecified organism (3) PAD (peripheral artery disease) Current Visit: Yes Status: Chronic Assessment and plan: Patient has chronic lower extremity weakness Also reports having pain with ambulation Found to have severe atherosclerosis with occlusion the right common iliac artery and probable severe stenosis of the left common iliac artery on abdomen/ pelvis CT ABIs consistent with severe stenosis of bilateral lower extremities CTA of her lower extremities with aorta runoffs today Currently being seen by vascular surgery, appreciate their recommendations regarding continued management/care (4) COPD (chronic obstructive pulmonary disease) Current Visit: Yes Status: Chronic Assessment and plan: No wheezes heard on exam Not in exacerbation currently Plan as above Qualifiers: COPD type: emphysema Emphysema type: centrilobular Qualified Code(s): J43.2 - Centrilobular emphysema (5) Decubitus ulcer Current Visit: Yes Status: Chronic Assessment and plan: Patient has sickle decubitus ulcer from being bedbound for last week Per wound care: Extensive wound Some serosanguinous drainage No odor or erythema Possibly deep Wound care following Cental and gentamicin cream started Surgery has been consulted as well and appreciate their assistance for evaluation about potential need for debridement We will continue on Levaquin and cefepime until degree of ulceration and potential infection is known Qualifiers: Pressure ulcer location: contiguous region involving back and buttock Pressure ulcer stage: unstageable Laterality: unspecified laterality Qualified Code(s): L89.45 - Pressure ulcer of contiguous site of back, buttock and hip, unstageable (6) DVT prophylaxis Current Visit: Yes Status: Acute Assessment and plan: Patient previously on heparin drip, now stopped We will continue heparin subcutaneous (7) Hypokalemia Current Visit: Yes Status: Acute Assessment and plan: Current potassium 3.6 Magnesium 1.5 2 g magnesium given today Check potassium and magnesium in a.m. (8) Elevated troponin Current Visit: Yes Status: Resolved Assessment and plan: Patient had 0.81 troponin at admission All repeat troponins have been <0.03 ECG unconcerning Possible error caused elevated reading Cardiology is following Echo showed EF 65% with mild left ventricular diastolic dysfunction Continue management per cardiology - Subjective Interval history: Patient reports doing well this morning. She denies having any shortness of breath and is no longer requiring a nasal cannula. She denies dyspnea, denies cough. She denies pain in her lower extremities, though she does state that when she lies on her side in order to take pressure off of her sacral wound, her leg goes numb and she can't move it very well. - Constitutional Vitals: Temp Pulse Resp BP Pulse Ox 98.1 F 103 17 130/98 92 12/05/17 05:24 12/05/17 05:24 12/05/17 05:24 12/05/17 05:24 12/05/17 05:24 General appearance: Present: A&O X 3, pleasant, answers questions appropriately Exam: General: Cooperative, pleasant, no acute distress, alert and oriented 3, answers questions appropriately HEENT: Normocephalic, atraumatic, Conjunctiva pink, sclera anicteric, oral mucosa moist Respiratory: No accessory muscle usage, clear to auscultation bilaterally, no wheezes/rhonchi/rales appreciated Cardiovascular: Regular rate and rhythm, S1 and S2 present, no murmurs/rubs/ gallops/clicks appreciated GI/abdominal: Nondistended, nontender, soft, normal bowel sounds, no peritoneal signs Extremities: No calf tenderness, no pedal edema appreciated, slightly cooler lower extremities, reduced pulses in bilateral lower extremities Neurological: Alert and oriented 3, no facial droop, mild bilateral leg weakness Skin: Dry, 2 unstageable decubiti located and symmetrical positions in either side of the gluteal cleft, large area of black eschar approximately 4 cm in diameter Internal Medicine: Result - Labs CBC & Chem 7: 12/05/17 04:00 12/05/17 04:00 Labs: Short CBC 12/05/17 Range/Units 04:00 WBC 11.3 H (4.3-11.1) K/mcL Hgb 10.9 L (11.5-15.4) g/dL Hct 35.5 (35.3-44.9) % Plt Count 451 H (140-400) K/mcL Neutrophils # 6.0 (1.6-8.9) K/mcL BMP 12/05/17 04:00 Sodium 141 Potassium 3.6 Chloride 104 Carbon Dioxide 30 H BUN 11 Creatinine 0.38 L Glucose 92 Calcium 8.7 - ABG Interpretation ABG results: PT/INR, D-dimer PT 12.7 Seconds (9.4-12.1) H 12/02/17 03:38 - Impressions Impressions Aorta w/Runoff CTA 12/05/17 08:00 IMPRESSION: 1. 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 2. Diffuse small caliber external iliac arteries but no significant stenosis. 3. Mild diffuse disease involving the common femoral, superficial femoral and popliteal arteries but no significant stenosis. 4. 3 vessel runoff. 5. No acute intra-abdominal abnormality. 6. Punctate foci of gas seen within the bladder. This likely is iatrogenic from catheterization. Other possibilities do include urinary tract infection or vesico-enteric fistula. Clinical correlation is recommended. D/ / Mychal Mao MD / Mychal Mao MD Interpreting Provider: Mychal Mao MD - VTE Documentation of Mechanical Device: Graduated compression elastic hosiery Consult Discharge Plan - Plan Additional Instructions: Wound Care: unstageable pressure ulcer of the coccyx/sacrum - cleanse daily with soap and water - apply Santyl and Gentamicin Ointments 50:50 nickel thick to the necrosis - cover with adaptic gauze 2 layers - pad with 5x9 ABD - hold secure with medipore tape - change daily and prn if soiled. Referrals: Arpit Lea MD [Partnered Physician] - 12/10/17 9:45 am (Follow-up in Outpatient wound care center- [phone]) NONE,PCP [Primary Care Provider] - (will see d/c needs at later time) <Lei Sanchez - Last Filed: 12/05/17 18:59> Date of Encounter: 12/05/17 - Assessment and plan (1) Pneumonia Current Visit: Yes Status: Suspected Qualifiers: Pneumonia type: due to other aerobic Gram-negative bacteria Laterality: bilateral Lung location: lower lobe of lung Qualified Code(s): J15.6 - Pneumonia due to other Gram-negative bacteria (2) Sepsis Current Visit: Yes Status: Resolved Qualifiers: Sepsis type: sepsis due to unspecified organism Qualified Code(s): A41.9 - Sepsis, unspecified organism (3) Hypokalemia Current Visit: Yes Status: Acute (4) NSTEMI (non-ST elevated myocardial infarction) Current Visit: Yes Status: Ruled-out (5) COPD (chronic obstructive pulmonary disease) Current Visit: Yes Status: Chronic Qualifiers: COPD type: emphysema Emphysema type: centrilobular Qualified Code(s): J43.2 - Centrilobular emphysema (6) Decubitus ulcer Current Visit: Yes Status: Chronic Qualifiers: Pressure ulcer location: contiguous region involving back and buttock Pressure ulcer stage: unstageable Laterality: unspecified laterality Qualified Code(s): L89.45 - Pressure ulcer of contiguous site of back, buttock and hip, unstageable (7) PAD (peripheral artery disease) Current Visit: Yes Status: Chronic (8) Tobacco abuse Current Visit: Yes Status: Chronic (9) Chronic pain Current Visit: Yes Status: Chronic Qualifiers: Chronic pain type: chronic pain syndrome Qualified Code(s): G89.4 - Chronic pain syndrome - Constitutional Vitals: Temp Pulse Resp BP Pulse Ox 98.6 F 92 16 104/73 95 12/05/17 16:00 12/05/17 16:00 12/05/17 16:00 12/05/17 16:00 12/05/17 16:00 Internal Medicine: Result - Labs CBC & Chem 7: 12/05/17 04:00 12/05/17 04:00 Labs: Short CBC 12/05/17 Range/Units 04:00 WBC 11.3 H (4.3-11.1) K/mcL Hgb 10.9 L (11.5-15.4) g/dL Hct 35.5 (35.3-44.9) % Plt Count 451 H (140-400) K/mcL Neutrophils # 6.0 (1.6-8.9) K/mcL BMP 12/05/17 04:00 Sodium 141 Potassium 3.6 Chloride 104 Carbon Dioxide 30 H BUN 11 Creatinine 0.38 L Glucose 92 Calcium 8.7 - ABG Interpretation ABG results: PT/INR, D-dimer PT 12.7 Seconds (9.4-12.1) H 12/02/17 03:38 - Impressions Impressions Aorta w/Runoff CTA 12/05/17 08:00 IMPRESSION: 1. 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 2. Diffuse small caliber external iliac arteries but no significant stenosis. 3. Mild diffuse disease involving the common femoral, superficial femoral and popliteal arteries but no significant stenosis. 4. 3 vessel runoff. 5. No acute intra-abdominal abnormality. 6. Punctate foci of gas seen within the bladder. This likely is iatrogenic from catheterization. Other possibilities do include urinary tract infection or vesico-enteric fistula. Clinical correlation is recommended. D/ / Mychal Mao MD / Mychal Mao MD Interpreting Provider: Mychal Mao MD - Attending Attestation I examined this patient and my medical decision-making was reviewed with the Resident Physician on 12/05/17. I agree with the documented findings, disposition and treatment plan as described except to the extent set forth below. Ms Lua is currently admitted for sepsis related to pneumonia. She remains moderate to high risk due to potential for worsening clinical status. Ms Lua is resting at this time. She is still having pain. Has chronic occlusion of vascular system. Had debridement of decub today. Exam alert Comfortable now. Mucus membranes dry Heart reg No wheeze I/P 1. PNA 2. Sacral decub Further diagnoses and plan as above.
--- NOTE | 2017-12-05 11:07 | General Surgery Consult Note ---
<Yazmin Blake Angelique - Last Filed: 12/05/17 16:24> Date of Encounter: 12/05/17 Time of Encounter: 10:45 Assessment and Plan (1) Decubitus ulcer Status: Chronic Risks, benefits, alternatives, expected outcomes reviewed with the patient regarding a bedside debridement today and she is in agreement to proceed Continue daily wound care as ordered with Santyl and gentamicin To sacral region and turned every 2 hours Patient will likely require serial debridements and follow-up will be scheduled in the outpatient wound care center with Dr. Lea Surgery will sign off at this time, please call with any further questions or concerns. Thank you for allowing us to participate in the care of this patient. Qualifiers: Pressure ulcer location: contiguous region involving back and buttock Pressure ulcer stage: unstageable Laterality: unspecified laterality Qualified Code(s): L89.45 - Pressure ulcer of contiguous site of back, buttock and hip, unstageable History of Present Illness Consult date: 12/05/17 Reason for consult: wound care Requesting physician: Karan Beltran History of present illness: Ms. Lua is a 57-year-old female with multiple comorbidities who presented to the emergency department with generalized weakness. She is been treated for pneumonia and sepsis. The patient stated that she had been unable to walk for at least 1 week prior to presentation to the hospital. She states she has been bedbound during that time. She reports that her decubitus ulcer developed over the past 1 week. The patient has been seen and evaluated by the wound care nurse and has been receiving daily wound care with Santyl and gentamicin. The wound is covered with eschar and surgery has been asked to see and evaluate the patient for possible debridement. Past Med Surg Social Fam HX - Past Medical History Medical history: asthma, COPD, hepatitis Psychiatric history: no psych history - Social History Smoking Status: Light tobacco smoker Smokeless Tobacco Status: No Alcohol use: none Drug use: marijuana Medications and Allergies FLUoxetine HCl [Prozac] 20 mg PO DAILY 12/02/17 [History] Ibuprofen [Motrin] 800 mg PO Q8HR PRN 12/02/17 [History] Mirtazapine [Remeron] 30 mg PO HS 12/02/17 [History] Pregabalin [Lyrica] 100 mg PO BID 12/02/17 [History] Promethazine [Phenergan] 12.5 mg PO Q6HR PRN 12/02/17 [History] Quetiapine Fumarate [Seroquel Xr] 200 mg PO HS 12/02/17 [History] Ropinirole HCl [Requip] 0.5 mg PO BID 12/02/17 [History] Aspirin 81 mg PO DAILY #30 tab.chew 12/06/17 [Rx] Collagenase Oint [Santyl] 1 appl TP DAILY #1 tube 12/06/17 [Rx] Gentamicin Oint [Garamycin] 1 appl TP DAILY #1 tube 12/06/17 [Rx] HYDROcodone/Acet 5/325 mg [[place] 5-325 mg] 1 tab PO Q6HR PRN 5 Days #20 tablet 12/06/17 [Rx] levoFLOXacin [Levaquin] 750 mg PO DAILY #2 tablet 12/06/17 [Rx] 3 Allergy/AdvReac Type Severity Reaction Status Date / Time Penicillins [PCN] Allergy Rash Verified 12/01/17 19:31 Review of Systems All systems PM: reviewed and no additional remarkable complaints except as stated (limited and as listed in the HPI) All systems PM: The remainder of the systems were reviewed and are negative General Surgery Exam Initial Vital Signs Temp Pulse Resp BP Pulse Ox 99.5 F 124 20 117/84 92 12/01/17 19:31 12/01/17 19:31 12/01/17 19:31 12/01/17 19:31 12/01/17 19:31 - General physical appearance well developed, well nourished, no distress - Eyes normal ocular movement - ENT normal mucosa, atraumatic, normocephalic - Neck trachea midline - Respiratory normal respiratory effort, clear to auscultation - Cardiovascular Cardiovascular exam: Present: RRR - Abdomen Abdomen general surgery: Present: bowel sounds present, soft, non tender - Integumentary Integumentary general surgery: Present: warm and dry, other (Sacral ulcer unstageable- measures 10 X 14cm, covered with eschar, no surrounding erythema or induration, scant amount of serous drainage noted.) - Neurologic Present: CN 2-12 grossly intact - Psychiatric Psychiatric general surgery: Present: appropriate, oriented to person, oriented to place, oriented to time, speech is normal, memory intact Exam Initial Vital Signs Temp Pulse Resp BP Pulse Ox 99.5 F 124 20 117/84 92 12/01/17 19:31 03/17/18 19:31 12/01/17 19:31 12/01/17 19:31 12/01/17 19:31 Results - Labs 12/05/17 04:00 12/05/17 04:00 Abnormal lab results WBC 11.3 K/mcL (4.3-11.1) H 12/05/17 04:00 Hgb 10.9 g/dL (11.5-15.4) L 12/05/17 04:00 MCHC 30.7 g/dL (31.6-35.5) L 12/05/17 04:00 RDW 14.8 % (11.5-14.5) H 12/05/17 04:00 Plt Count 451 K/mcL (140-400) H 12/05/17 04:00 Immature Gran % 4.2 % (0-4) H 12/05/17 04:00 Nucleated RBCs/100 WBC 0.2 /100 WBC (0) H 12/05/17 04:00 PT 12.7 Seconds (9.4-12.1) H 12/02/17 03:38 Carbon Dioxide 30 mEq/L (23-29) H 12/05/17 04:00 Creatinine 0.38 mg/dL (0.60-1.20) L 12/05/17 04:00 BUN/Creatinine Ratio 29 (6-26) H 12/05/17 04:00 POC Glucose 96 (58-89) H 12/04/17 20:43 Magnesium 1.5 mg/dL (1.6-2.6) L 12/05/17 04:00 Albumin 3.3 g/dL (3.5-5.7) L 12/02/17 03:38 Albumin/Globulin Ratio 1.0 (1.1-2.2) L 12/02/17 03:38 Urine Clarity Cloudy (Clear) A 12/01/17 20:45 Urine Ketones 15 mg/dL (Negative) H 12/01/17 20:45 Urine Bilirubin Small (Negative) H 12/01/17 20:45 Urine Urobilinogen 2.0 mg/dL (Normal) H 12/01/17 20:45 Ur Squamous Epith Cells Many per lpf (None-Few) H 12/01/17 20:45 Urine Bacteria Many per hpf (None-Few) H 12/01/17 20:45 Vancomycin Trough 9.3 mcg/mL (10-20) L 12/03/17 09:00 Diabetes panel 12/05/17 Range/Units 04:00 Sodium 141 (136-145) mEq/L Potassium 3.6 (3.5-5.1) mEq/L Chloride 104 (98-107) mEq/L Carbon Dioxide 30 H (23-29) mEq/L BUN 11 (6-20) mg/dL Creatinine 0.38 L (0.60-1.20) mg/dL Glucose 92 (70-105) mg/dL Calcium 8.7 (8.6-10.3) mg/dL Calcium panel 12/05/17 Range/Units 04:00 Calcium 8.7 (8.6-10.3) mg/dL Phosphorus 3.1 (2.7-4.5) mg/dL Pituitary panel 12/05/17 Range/Units 04:00 Sodium 141 (136-145) mEq/L Potassium 3.6 (3.5-5.1) mEq/L Chloride 104 (98-107) mEq/L Carbon Dioxide 30 H (23-29) mEq/L BUN 11 (6-20) mg/dL Creatinine 0.38 L (0.60-1.20) mg/dL Glucose 92 (70-105) mg/dL Calcium 8.7 (8.6-10.3) mg/dL Adrenal panel 12/05/17 Range/Units 04:00 Sodium 141 (136-145) mEq/L Potassium 3.6 (3.5-5.1) mEq/L Chloride 104 (98-107) mEq/L Carbon Dioxide 30 H (23-29) mEq/L BUN 11 (6-20) mg/dL Creatinine 0.38 L (0.60-1.20) mg/dL Glucose 92 (70-105) mg/dL Calcium 8.7 (8.6-10.3) mg/dL All other labs normal. Consult Discharge Plan - Plan Instructions: Levofloxacin (By mouth) Additional Instructions: Wound Care: unstageable pressure ulcer of the coccyx/sacrum - cleanse daily with soap and water - apply Santyl and Gentamicin Ointments 50:50 nickel thick to the necrosis - cover with adaptic gauze 2 layers - pad with 5x9 ABD - hold secure with medipore tape - change daily and prn if soiled. She will need to follow-up with wound care for continued management and possible repeat debridement. She will need follow-up with vascular surgery to assess and potentially surgically correct/bypass her PAD. Continue primary care follow-up for her COPD and overall health. Please return to emergency room if worsened shortness of breath, development chest pain, increased weakness lower extremity, increased pain in lower extremities, or development of fever. Take all medications as prescribed: Levaquin 750 mg daily for 2 days Aspirin 81 mg daily Apply Santyl cream and gentamicin ointments with wound dressings per wound care structures Referrals: Arpit Lea MD [Partnered Physician] - 12/10/17 9:45 am (Follow-up in Outpatient wound care center- If you need to change your appointment time, please call [phone]) NONE,PCP [Primary Care Provider] - (will see d/c needs at later time) Prescriptions: HYDROcodone/Acet 5/325 mg [[place] 5-325 mg] 1 tab PO Q6HR PRN 5 Days #20 tablet PRN Reason: Severe Pain Aspirin 81 mg PO DAILY #30 tab.chew Collagenase Oint [Santyl] 1 appl TP DAILY #1 tube Gentamicin Oint [Garamycin] 1 appl TP DAILY #1 tube levoFLOXacin [Levaquin] 750 mg PO DAILY #2 tablet - Attending Attestation For this encounter, I have reviewed the LOW PRESSURE BOILER OPERATOR or PA documentation, treatment plan, and medical decision making; and I have had face to face time with this patient. <Arpit Lea - Last Filed: 12/07/17 08:44> Date of Encounter: 12/05/17 Review of Systems All systems PM: The remainder of the systems were reviewed and are negative General Surgery Exam Initial Vital Signs Temp Pulse Resp BP Pulse Ox 99.5 F 124 20 117/84 92 12/01/17 19:31 12/01/17 19:31 12/01/17 19:31 12/01/17 19:31 12/01/17 19:31 Exam Initial Vital Signs Temp Pulse Resp BP Pulse Ox 99.5 F 124 20 117/84 92 12/01/17 19:31 12/01/17 19:31 12/01/17 19:31 12/01/17 19:31 12/01/17 19:31 Results - Labs 12/05/17 04:00 12/05/17 04:00 Abnormal lab results WBC 11.3 K/mcL (4.3-11.1) H 12/05/17 04:00 Hgb 10.9 g/dL (11.5-15.4) L 12/05/17 04:00 MCHC 30.7 g/dL (31.6-35.5) L 12/05/17 04:00 RDW 14.8 % (11.5-14.5) H 12/05/17 04:00 Plt Count 451 K/mcL (140-400) H 12/05/17 04:00 Immature Gran % 4.2 % (0-4) H 12/05/17 04:00 Nucleated RBCs/100 WBC 0.2 /100 WBC (0) H 12/05/17 04:00 PT 12.7 Seconds (9.4-12.1) H 12/02/17 03:38 Carbon Dioxide 30 mEq/L (23-29) H 12/05/17 04:00 Creatinine 0.38 mg/dL (0.60-1.20) L 12/05/17 04:00 BUN/Creatinine Ratio 29 (6-26) H 12/05/17 04:00 POC Glucose 96 (58-89) H 12/04/17 20:43 Magnesium 1.5 mg/dL (1.6-2.6) L 12/05/17 04:00 Albumin 3.3 g/dL (3.5-5.7) L 12/02/17 03:38 Albumin/Globulin Ratio 1.0 (1.1-2.2) L 12/02/17 03:38 Urine Clarity Cloudy (Clear) A 12/01/17 20:45 Urine Ketones 15 mg/dL (Negative) H 12/01/17 20:45 Urine Bilirubin Small (Negative) H 12/01/17 20:45 Urine Urobilinogen 2.0 mg/dL (Normal) H 12/01/17 20:45 Ur Squamous Epith Cells Many per lpf (None-Few) H 12/01/17 20:45 Urine Bacteria Many per hpf (None-Few) H 12/01/17 20:45 Vancomycin Trough 9.3 mcg/mL (10-20) L 12/03/17 09:00 All other labs normal. - Attending Attestation The patient is seen and evaluated. The cares discussed clinical nurse practitioner. We will plan staged debridement with follow-up in wound care clinic Arpit Lea MD FACS
--- NOTE | 2017-12-05 14:35 | Vascular/[facility] Progress Note ---
Date of Encounter: 12/05/17 Time of Encounter: 12:00 - Assessment and plan (1) Atherosclerosis of [place] arteries of extremities with intermittent claudication, bilateral legs Current Visit: Yes Status: Chronic The patient has severe periphearl vascular disease. She has an infrarenal abdominal aortic occlusion by CT scan. She has no signs or symptoms of acute limb threatening ischemia. She has no dependent rubor, no ulcers, no gangrene and no rest pain. Her ABIs are consistent with severe disease. Her occlusion is chronic. She will require either an aortobifemoral bypass of axillary to bilateral femoral artery bypass. She will require a stress test prior. She currently also has a sacral decubitus ulcer that will need to improve prior to surgery. She may follow-up in vascular clinic after discharge. - Subjective Interval history: The patient reports that she is comfortable. She denies chest pain or shortness of breath. Vital Signs, Last 4 Hours Temp Pulse Resp BP Pulse Ox 12/05/17 11:08 98.0 F 92 16 106/74 96 - Physical Examination General: Present: Conversant, No Apparent Distress Cardiac: Present: Reg Rate and Rhythm, Normal S1 and S2 Lungs: Present: Normal Breath Sounds Neuro: Present: Alert and responsive, No focal deficits noted, Motor nerves grossly intact, Sensory nerves grossly intact Vascular: Present: Normal capillary refill, Pulse, absent. Absent: Edema Abdomen: Present: Soft, Non-tender. Absent: Masses Skin: Present: Wound/ulcer(s) (decubitus ulcer that was present on admission) Musculoskeletal: Present: No Chest Wall Tenderness - VTE Documentation of Mechanical Device: Graduated compression elastic hosiery Results 12/05/17 04:00 12/05/17 04:00 Lab Results, Last 24 hours 12/05/17 12/05/17 04:00 04:00 WBC 11.3 H Hgb 10.9 L Hct 35.5 Plt Count 451 H Sodium 141 Potassium 3.6 Chloride 104 Carbon Dioxide 30 H BUN 11 Creatinine 0.38 L Glucose 92 Calcium 8.7 Magnesium 1.5 L - Imaging / Other Tests CT/CTA: report reviewed, image reviewed (infrarenal aortic occlusion.) Consult Discharge Plan - Plan Referrals: NONE,PCP [Primary Care Provider] - (will see d/c needs at later time)
--- NOTE | 2017-12-05 16:45 | General Surgery Procedure Note ---
Date of procedure: 12/05/17 Pre-op diagnosis: Unstageable sacral decubitus ulcer Post-op diagnosis: same Procedure: After informed consent was obtained and timeout performed, the patient was placed in the right lateral position. A #10 blade scalpel was used to debride necrotic tissue from the wound bed. Debridement was carried out through subcutaneous tissue. The patient tolerated this well and there were no immediate complications. Complications: None immediate Anesthesia: none Surgeon: Yazmin Blake Estimated blood loss (cc): 0 Pathology: none sent Condition: stable Disposition: no change
--- NOTE | 2017-12-05 19:08 | Electrocardiograph Report ---
[place] [id number] Test Date: 2017-12-01 Pat Name: Geeta Lua Department: 103 Room: 2A Gender: F [employer] Judge: ELGIN : 1960 Requested By: Giovanny Osorio Order Number: [id number] Reading MD: Johnie Jin MD Measurements Intervals [place] Rate: 111 P: 72 CT: 140 QRS: 74 QRSD: 84 T: 66 QT: 365 QTc: 431 Interpretive Statements SINUS TACHYCARDIA BASELINE ARTIFACT Electronically Signed On 12-05-2017 19:07:07 EDT by Johnie Jin MD
--- NOTE | 2017-12-05 19:11 | Electrocardiograph Report ---
[place] [id number] Test Date: 2017-12-01 Pat Name: Geeta Lua Department: 103 Room: 2A Gender: F Outside Salesperson: ELGIN : 1960 Requested By: Giovanny Osorio Order Number: [id number] Reading MD: Johnie Jin MD Measurements Intervals [place] Rate: 103 P: 77 GA: 151 QRS: 77 QRSD: 82 T: 65 QT: 356 QTc: 415 Interpretive Statements SINUS TACHYCARDIA BASELINE ARTIFACT COMPLICATES ACCURATE INTERPRETATION Electronically Signed On 12-05-2017 19:10:11 EDT by Johnie Jin MD
[2017-12-05] MEDS: Mirtazapine 15 MG TABLET PO SCH (19:46)
[2017-12-06] MEDS: *HR* HYDROcodone/Acet 5/325 mg TABLET PO PRN ×2 (00:53→08:56)
[2017-12-06] MEDS: Cefepime HCl 2,000 MG in Water for inj. (sterile) 20 ML 20 ML IVPB SCH (02:04)
[2017-12-06] MEDS: *HR* Heparin 5,000 UNIT/ML VIAL SQ SCH (05:18)
--- NOTE | 2017-12-06 08:10 | Physician Discharge Referral ---
Home Health/Hosp Referral Info Transfer to: Home Health Provider in Charge Post Discharge: PCP - Diagnosis (1) Sepsis Priority: Primary Status: Resolved (2) Community acquired pneumonia Priority: Primary Status: Resolved (3) PAD (peripheral artery disease) Priority: Primary Status: Chronic (4) COPD (chronic obstructive pulmonary disease) Priority: Primary Status: Chronic (5) Decubitus ulcer Priority: Primary Status: Acute (6) DVT prophylaxis Priority: Secondary Status: Resolved (7) Hypokalemia Priority: Primary Status: Resolved (8) Elevated troponin Priority: Primary Status: Resolved - Respiratory Orders Smoking Cessation: Smoking cessation has been advised. For more information, call the [place] [employer] Quit Line at 3-138-HWWJ-NOW. - Dressing/Wound Care Site: sacral decubitus ulcers Type of Dressing/Treatments w/Frequency: Wound Care: unstageable pressure ulcer of the coccyx/sacrum - cleanse daily with soap and water - apply Santyl and Gentamicin Ointments 50:50 nickel thick to the necrosis - cover with adaptic gauze 2 layers - pad with 5x9 ABD - hold secure with medipore tape - change daily and prn if soiled. - Diet/Nutrition Diet/Nutrition Orders: Cardiac - Activity Activity Orders: Ambulate, Walker - Services Needed Following services are medically necessary services: Nursing, Home Health Aide, Physical Therapy, Occupational Therapy, Med Social Work - Transfer Medications Prescriptions: Aspirin 81 mg PO DAILY #30 tab.chew Collagenase Oint [Santyl] 1 appl TP DAILY #1 tube Gentamicin Oint [Garamycin] 1 appl TP DAILY #1 tube levoFLOXacin [Levaquin] 750 mg PO DAILY #2 tablet Home Medications: FLUoxetine HCl [Prozac] 20 mg PO DAILY 12/02/17 [History] Ibuprofen [Motrin] 800 mg PO Q8HR PRN 12/02/17 [History] Mirtazapine [Remeron] 30 mg PO HS 12/02/17 [History] Pregabalin [Lyrica] 100 mg PO BID 12/02/17 [History] Promethazine [Phenergan] 12.5 mg PO Q6HR PRN 12/02/17 [History] Quetiapine Fumarate [Seroquel Xr] 200 mg PO HS 12/02/17 [History] Ropinirole HCl [Requip] 0.5 mg PO BID 12/02/17 [History] Aspirin 81 mg PO DAILY #30 tab.chew 12/06/17 [Rx] Collagenase Oint [Santyl] 1 appl TP DAILY #1 tube 12/06/17 [Rx] Gentamicin Oint [Garamycin] 1 appl TP DAILY #1 tube 12/06/17 [Rx] levoFLOXacin [Levaquin] 750 mg PO DAILY #2 tablet 12/06/17 [Rx] Allergies/Adverse Reactions: 3 Allergy/AdvReac Type Severity Reaction Status Date / Time Penicillins [PCN] Allergy Rash Verified 12/01/17 19:31 Certification: Further, I certify that my clinical findings support that this patient is homebound (i.e. absences from home require considerable and taxing effort and are for medical reasons or moravian services or infrequently or short duration when for other reasons) because: Homebound Reason: Leaving home requires considerable and taxing effort due to condition Attestation: My signature below is to certify that this patient is under my care and that I, or nurse practitioner, or a physician's social research assistant working with me, has a face-to -face encounter with this patient.
--- NOTE | 2017-12-06 08:10 | Discharge Summary ---
<Karan Beltran - Last Filed: 12/06/17 11:31> - NOTES TO OUTPATIENT PROVIDER Notes to Outpatient Provider: Patient found to have increased weakness at home, was then found to have pneumonia via chest CT, sacral decubitus, and significant peripheral arterial disease. She will need to follow-up with wound care for continued management and possible repeat debridement. She will need follow-up with vascular surgery to assess and potentially surgically correct/ bypass her PAD. Continue primary care follow-up for her COPD and overall health. Orders not resulted at time of discharge: Pending orders 12/03/17 10:44 Culture,Sputum with Gram Stain [RM] Routine 12/06/17 04:00 BMP [Basic Metabolic Panel] AM 0400 CBC [Complete Blood Count] [HEME] AM 0400 Magnesium AM 0400 Date of Encounter: 12/06/17 Time of Encounter: 07:30 - Discharge Diagnosis (1) Sepsis Priority: Primary Status: Resolved Qualifiers: Sepsis type: sepsis due to unspecified organism Qualified Code(s): A41.9 - Sepsis, unspecified organism (2) Community acquired pneumonia Priority: Primary Status: Resolved Qualifiers: Laterality: right Lung location: unspecified part of lung Qualified Code( s): J18.9 - Pneumonia, unspecified organism (3) PAD (peripheral artery disease) Priority: Primary Status: Chronic (4) COPD (chronic obstructive pulmonary disease) Priority: Primary Status: Chronic Qualifiers: COPD type: emphysema Emphysema type: centrilobular Qualified Code(s): J43.2 - Centrilobular emphysema (5) Decubitus ulcer Priority: Primary Status: Acute Qualifiers: Pressure ulcer location: contiguous region involving back and buttock Pressure ulcer stage: unstageable Laterality: unspecified laterality Qualified Code(s): L89.45 - Pressure ulcer of contiguous site of back, buttock and hip, unstageable (6) DVT prophylaxis Priority: Secondary Status: Resolved (7) Hypokalemia Priority: Primary Status: Resolved (8) Elevated troponin Priority: Primary Status: Resolved Hospital course: Ms. Lua is a 57 year old female with prior medical history of asthma, COPD, hepatitis, and severe PAD presents to the emergency room on 12/02/17 with one week of worsening weakness from her baseline. She states that she has chronic weakness in her lower extremities from her chronic back pain as well as PAD. Resulted in her being bedbound for 1 week prior to presentation during which time she developed a sacral decubitus ulcer (according to her). At the time of presentation she was found to have an elevated troponin and CT findings suggestive of pneumonia. She was seen by cardiology who felt the elevated troponin was result of her COPD and pneumonia she was then treated with antibiotics for several days. During this time ABIs were obtained that showed severe stenosis of bilateral lower extremities. A CTA of the lower extremities was performed that showed some collateral flow, but overall reduced. She was seen by vascular surgery who recommended follow-up as outpatient for potential aortofemoral bypass with recommendations of the stress test prior to the procedure. During her stay she was also seen by wound care and general surgery for evaluation, management, and debridement of her sacral decubitus. It is recommended she follow-up with wound care as outpatient for continued observation and potential serial debridements. At this time she is safe/stable for discharge with recommendations from PT/OT that she go to a alf facility, which seems like a good idea given her overall weakness and difficulties with ambulation. She is adamant about going home, however, stating that she is concerned about her dog tearing up her home. He was we have read to her by myself, social work, family service caseworker, and her nurse the importance that she go to alf facility, however she still refused. She does state that she is interested in potential for home health to continue with some physical therapy and assist her with her sacral decubitus ulcer. Discharge discussed with: patient, social work, case management - Time Spent with Patient Total time spent providing and/or coordinating discharge services: Greater than 30 minutes - Discharge Medications Prescriptions: HYDROcodone/Acet 5/325 mg [[place] 5-325 mg] 1 tab PO Q6HR PRN 5 Days #20 tablet PRN Reason: Severe Pain Aspirin 81 mg PO DAILY #30 tab.chew Collagenase Oint [Santyl] 1 appl TP DAILY #1 tube Gentamicin Oint [Garamycin] 1 appl TP DAILY #1 tube levoFLOXacin [Levaquin] 750 mg PO DAILY #2 tablet Home Medications: FLUoxetine HCl [Prozac] 20 mg PO DAILY 12/02/17 [History] Ibuprofen [Motrin] 800 mg PO Q8HR PRN 12/02/17 [History] Mirtazapine [Remeron] 30 mg PO HS 12/02/17 [History] Pregabalin [Lyrica] 100 mg PO BID 12/02/17 [History] Promethazine [Phenergan] 12.5 mg PO Q6HR PRN 12/02/17 [History] Quetiapine Fumarate [Seroquel Xr] 200 mg PO HS 12/02/17 [History] Ropinirole HCl [Requip] 0.5 mg PO BID 12/02/17 [History] Aspirin 81 mg PO DAILY #30 tab.chew 12/06/17 [Rx] Collagenase Oint [Santyl] 1 appl TP DAILY #1 tube 12/06/17 [Rx] Gentamicin Oint [Garamycin] 1 appl TP DAILY #1 tube 12/06/17 [Rx] HYDROcodone/Acet 5/325 mg [[place] 5-325 mg] 1 tab PO Q6HR PRN 5 Days #20 tablet 12/06/17 [Rx] levoFLOXacin [Levaquin] 750 mg PO DAILY #2 tablet 12/06/17 [Rx] Allergies/Adverse Reactions: 3 Allergy/AdvReac Type Severity Reaction Status Date / Time Penicillins [PCN] Allergy Rash Verified 12/01/17 19:31 Date of admission: 12/02/17 01:20 Primary care physician: PCP NONE Consults: 12/02/17 03:06 Consult to Nutrition [CONS] Routine Comment: Consulting Provider: NUTRITION Reason for Dietary Consult: MST Score PO Supplementation 12/02/17 03:29 Consult to Wound Care [CONS] Routine Reason for Consult: decubitus Call Completed: No 12/02/17 03:54 Consult to Occupational Therapy [CONS] Routine Comment: Evaluate, develop and implement POC Reason for Consult: discharge Does patient have active BEDREST order?: Yes Is patient medically & hemodynamically stable?: No Patient assessed for mobility or mobilized this visit?: No Consult to Physical Therapy [CONS] Routine Comment: Evaluate, develop and implement POC Reason for Consult: weakness Does patient have active BEDREST order?: Yes Is patient medically & hemodynamically stable?: Yes Patient assessed for mobility or mobilized this visit?: Yes 12/03/17 14:18 Consult to Surgery [CONS] Routine Consulting Provider: [facility] Reason for Consult: Unstageable pressure injury to coccyx/sacrum - 100% eschar - probable Stage 4 - 10.7cm x 8.5cm Time Notified: 14:19 Call Completed: No 12/04/17 08:36 Consult to Asset Protection Representative [CONS] Routine Reason for SW Consult: needs ecf Discharging clinician: Karan Beltran Anticipated date of discharge: 12/06/17 - Constitutional Vitals: Temp Pulse Resp BP Pulse Ox 99.0 F 97 16 130/85 95 12/06/17 06:51 12/06/17 06:51 12/06/17 06:51 12/06/17 06:51 12/06/17 06:51 General appearance: Present: A&O X 3, pleasant, answers questions appropriately Exam: General: Cooperative, pleasant, no acute distress, alert and oriented 3, answers questions appropriately HEENT: Normocephalic, atraumatic, Conjunctiva pink, sclera anicteric, oral mucosa moist Respiratory: No accessory muscle usage, clear to auscultation bilaterally, no wheezes/rhonchi/rales appreciated Cardiovascular: Regular rate and rhythm, S1 and S2 present, no murmurs/rubs/ gallops/clicks appreciated GI/abdominal: Nondistended, nontender, soft, normal bowel sounds, no peritoneal signs Extremities: No calf tenderness, no pedal edema appreciated, slightly cooler lower extremities, reduced pulses in bilateral lower extremities Neurological: Alert and oriented 3, no facial droop, mild bilateral leg weakness Skin: Dry, 2 unstageable decubiti located and symmetrical positions in either side of the gluteal cleft - Patient Status Disposition: Home Health Service Condition: Fair Functional capacity at discharge: uses cane/walker Overall status at discharge: patient is progressing back to baseline - Ambulatory Orders Ambulatory Orders: Misc. Orders Time Frame: 1 Month, Facility: [facility], Location: Home Health Services - Discharge Instructions Instructions: Levofloxacin (By mouth) Follow Up With: Arpit Lea MD [Partnered Physician] - 12/10/17 9:45 am (Follow-up in Outpatient wound care center- If you need to change your appointment time, please call [phone]) NONE,PCP [Primary Care Provider] - (will see d/c needs at later time) Additional Instructions: Wound Care: unstageable pressure ulcer of the coccyx/sacrum - cleanse daily with soap and water - apply Santyl and Gentamicin Ointments 50:50 nickel thick to the necrosis - cover with adaptic gauze 2 layers - pad with 5x9 ABD - hold secure with medipore tape - change daily and prn if soiled. She will need to follow-up with wound care for continued management and possible repeat debridement. She will need follow-up with vascular surgery to assess and potentially surgically correct/bypass her PAD. Continue primary care follow-up for her COPD and overall health. Please return to emergency room if worsened shortness of breath, development chest pain, increased weakness lower extremity, increased pain in lower extremities, or development of fever. Take all medications as prescribed: Levaquin 750 mg daily for 2 days Aspirin 81 mg daily Apply Santyl cream and gentamicin ointments with wound dressings per wound care structures - Diet and Activity Activity: ambulate only with your walker, as per physical therapy, increase activity as tolerated Diet: low fat, low cholesterol - VTE Documentation of Mechanical Device: Graduated compression elastic hosiery <Lei Sanchez - Last Filed: 12/06/17 16:16> Date of Encounter: 12/06/17 - Discharge Diagnosis (1) Pneumonia Priority: Primary Status: Suspected Qualifiers: Pneumonia type: due to other aerobic Gram-negative bacteria Laterality: bilateral Lung location: lower lobe of lung Qualified Code(s): J15.6 - Pneumonia due to other Gram-negative bacteria (2) Sepsis Status: Resolved Qualifiers: Sepsis type: sepsis due to unspecified organism Qualified Code(s): A41.9 - Sepsis, unspecified organism (3) Hypokalemia Priority: Secondary Status: Resolved (4) COPD (chronic obstructive pulmonary disease) Status: Chronic Qualifiers: COPD type: emphysema Emphysema type: centrilobular Qualified Code(s): J43.2 - Centrilobular emphysema (5) Decubitus ulcer Status: Acute Qualifiers: Pressure ulcer location: contiguous region involving back and buttock Pressure ulcer stage: unstageable Laterality: unspecified laterality Qualified Code(s): L89.45 - Pressure ulcer of contiguous site of back, buttock and hip, unstageable (6) PAD (peripheral artery disease) Status: Chronic (7) Tobacco abuse Priority: Secondary Status: Chronic (8) Chronic pain Priority: Secondary Status: Chronic Qualifiers: Chronic pain type: chronic pain syndrome Qualified Code(s): G89.4 - Chronic pain syndrome Hospital course: Ms. Lua is a 57 year old female - Time Spent with Patient Total time spent providing and/or coordinating discharge services: 38min Date of admission: 12/02/17 01:20 Primary care physician: PCP NONE Consults: 12/02/17 03:06 Consult to Nutrition [CONS] Routine Comment: Consulting Provider: NUTRITION Reason for Dietary Consult: MST Score PO Supplementation 12/02/17 03:29 Consult to Wound Care [CONS] Routine Reason for Consult: decubitus Call Completed: No 12/02/17 03:54 Consult to Occupational Therapy [CONS] Routine Comment: Evaluate, develop and implement POC Reason for Consult: discharge Does patient have active BEDREST order?: Yes Is patient medically & hemodynamically stable?: No Patient assessed for mobility or mobilized this visit?: No Consult to Physical Therapy [CONS] Routine Comment: Evaluate, develop and implement POC Reason for Consult: weakness Does patient have active BEDREST order?: Yes Is patient medically & hemodynamically stable?: Yes Patient assessed for mobility or mobilized this visit?: Yes 12/03/17 14:18 Consult to Surgery [CONS] Routine Consulting Provider: [facility] Reason for Consult: Unstageable pressure injury to coccyx/sacrum - 100% eschar - probable Stage 4 - 10.7cm x 8.5cm Time Notified: 14:19 Call Completed: No 12/04/17 08:36 Consult to Asset Protection Representative [CONS] Routine Reason for SW Consult: needs ecf - Constitutional Vitals: Temp Pulse Resp BP Pulse Ox 99.1 F 97 17 127/80 96 12/06/17 10:52 12/06/17 08:00 12/06/17 10:52 12/06/17 10:52 12/06/17 10:52 - Attending Attestation I examined this patient and my medical decision-making was reviewed with the Resident Physician on 12/06/17. I agree with the documented findings, disposition and treatment plan as described except to the extent set forth below. Ms Lua has been admitted for pneumonia and back and leg pain. She had debridement of decubitus yesterday. Overall she is doing better. She is currently afebrile. It has been recommended she go to SNF for rehab and wound care. She has refused multiple times despite multiple conversations with her about the risks of going home. She is concerned about her dog. She is ready for discharge at this time and home health has been arranged. Exam alert Comfortable Mucus membranes dry Heart reg No wheeze now Abd soft Dressing intact Plan D/C home today with [facility] Wound care appt
--- NOTE | 2017-12-06 08:10 | Physician Discharge Referral ---
ExtendedCare Referral Info Provider in Charge after Transfer: PCP Institutional Level of Care: Skilled - Diagnosis (1) Sepsis Priority: Primary Status: Resolved (2) Community acquired pneumonia Priority: Primary Status: Resolved (3) PAD (peripheral artery disease) Priority: Primary Status: Chronic (4) COPD (chronic obstructive pulmonary disease) Priority: Primary Status: Chronic (5) Decubitus ulcer Priority: Primary Status: Acute (6) DVT prophylaxis Priority: Secondary Status: Resolved (7) Hypokalemia Priority: Primary Status: Resolved (8) Elevated troponin Priority: Primary Status: Resolved Expected Duration of Placement: 2-3 Weeks Prognosis: Good Aware of Diagnosis: Patient - Transfer Medications Prescriptions: Aspirin 81 mg PO DAILY #30 tab.chew Collagenase Oint [Santyl] 1 appl TP DAILY #1 tube Gentamicin Oint [Garamycin] 1 appl TP DAILY #1 tube levoFLOXacin [Levaquin] 750 mg PO DAILY #2 tablet Home Medications: FLUoxetine HCl [Prozac] 20 mg PO DAILY 12/02/17 [History] Ibuprofen [Motrin] 800 mg PO Q8HR PRN 12/02/17 [History] Mirtazapine [Remeron] 30 mg PO HS 12/02/17 [History] Pregabalin [Lyrica] 100 mg PO BID 12/02/17 [History] Promethazine [Phenergan] 12.5 mg PO Q6HR PRN 12/02/17 [History] Quetiapine Fumarate [Seroquel Xr] 200 mg PO HS 12/02/17 [History] Ropinirole HCl [Requip] 0.5 mg PO BID 12/02/17 [History] Aspirin 81 mg PO DAILY #30 tab.chew 12/06/17 [Rx] Collagenase Oint [Santyl] 1 appl TP DAILY #1 tube 12/06/17 [Rx] Gentamicin Oint [Garamycin] 1 appl TP DAILY #1 tube 12/06/17 [Rx] levoFLOXacin [Levaquin] 750 mg PO DAILY #2 tablet 12/06/17 [Rx] Allergies/Adverse Reactions: 3 Allergy/AdvReac Type Severity Reaction Status Date / Time Penicillins [PCN] Allergy Rash Verified 12/01/17 19:31 - Respiratory Orders Smoking Cessation: Smoking cessation has been advised. For more information, call the [employer] Quit Line at 0-749-JLBX-NOW. - Ancillary Orders May use pressure relief devices daily prn - Advance Directives Code Status: Full Code - Mobility Orders Ambulate - Rehabiliation Orders Rehab Potential: Fair Rehab Orders: Evaluation for Physical Therapy, Evaluation for Occupational Therapy Other: Wound Care: unstageable pressure ulcer of the coccyx/sacrum - cleanse daily with soap and water - apply Santyl and Gentamicin Ointments 50:50 nickel thick to the necrosis - cover with adaptic gauze 2 layers - pad with 5x9 ABD - hold secure with medipore tape - change daily and prn if soiled. - Treatments List/Other: Wound Care: unstageable pressure ulcer of the coccyx/sacrum - cleanse daily with soap and water - apply Santyl and Gentamicin Ointments 50:50 nickel thick to the necrosis - cover with adaptic gauze 2 layers - pad with 5x9 ABD - hold secure with medipore tape - change daily and prn if soiled. - Diet Orders Cardiac CERTIFICATION: I certify that the transfer of the above named patient to an Extended Care Facility is necessary for the continuing treatment of the diagnosis listed. The above information is true and accurate reflection of patient's current condition. Confidential - Redisclosure prohibited without a patient's written consent.
[2017-12-06] MEDS: FLUoxetine 20 MG CAPSULE PO SCH (08:55)
[2017-12-06] MEDS: Aspirin 81 MG TAB.CHEW PO SCH (08:55)
[2017-12-06] MEDS: rOPINIRole 1 MG TABLET PO SCH (08:55)
[2017-12-06] MEDS: Levofloxacin 750 MG/150 ML 750 MG/150 ML BAG IVPB SCH (08:57)
[2017-12-06] MEDS: Pregabalin 50 MG CAPSULE PO SCH (08:57)
[2017-12-06 10:56] VITALS: BP 127/80
== END 2017-12-06 11:48 | disposition home health service (06) ==
LOC: EMEROO 19:26 → 2ANU 19:26 → SUATTDRO 12-02 01:20 → 2ANU 12-02 02:45 → SUATTDRO 12-02 03:14
PROVIDERS: ADMIT Hospitalist; ATTEND Internal Medicine

== ENCOUNTER 2018-01-31 06:25 | Inpatient (IN) ==
--- NOTE | 2018-01-31 06:36 | History & Physical Report ---
Date of Encounter: 01/31/18 Time of Encounter: 06:33 24 Hour HP Update - Instructions Instructions: If the History and Physical is less than 30 days old and was completed prior to A.M. admission and or procedure and has NOT been updated on calendar day of procedure please complete this update prior to performing procedure. - Update Patient reports changes in Medical Condition: No Changes in examination, assessment, or condition: No Changes in Medication: No Preop tests/diagnostics Reviewed: Yes Surgery Remains Indicated: Yes Consent for Planned Operative Procedure(s) Verified: Yes - Pre-Operative Checklist Preoperative Checklist Indicated: Yes Prophylactic Antibiotic Ordered: Yes (vancomycin due to mrsa risk) Home Medications Include Beta Josemanuel: No Beta Josemanuel Taken Today (Day of Surgery): No Beta Josemanuel Taken Yesterday (Day Prior to Surgery): No Is VTE Prophylaxis Indicated?: Yes
[2018-01-31] MEDS ORDERED: CeFAZolin Syr 2,000MG/20 ML 2,000 MG/20 ML SYRINGE IVPB ONE (06:53)
[2018-01-31] MEDS ORDERED: Albuterol 2.5 MG/3 ML NEBULIZER IH ONE (06:53)
[2018-01-31] MEDS ORDERED: Ringers Solution, Lactated 1,000 ML IVC SCH (07:00)
[2018-01-31] MEDS ORDERED: Heparin 1,000 UNITS/500 mL 1,500 ML ONE (07:15)
[2018-01-31] MEDS ORDERED: Vancomycin 1,000 MG, Sodium Chloride IRRigation 1,000 ML IR ONE ×3 (07:45→12:00)
--- NOTE | 2018-01-31 08:00 | Anesthesia Evaluation PreOp ---
Date of Encounter: 01/31/18 Time of Encounter: 07:58 - Past History Planned Operation: aorta bifem Cardiac History: HTN, Other (PVD) Pulmonary History: Smoker, Asthma, COPD (no home O2) UNDERGROUND MINER History: Other (depression) Anesthesia History: No Prior Anesthetic Complications, Past Anesthesia (C/S, tubal) Alcohol Use: none Drug use: marijuana Medications and Allergies FLUoxetine HCl [Prozac] 20 mg PO DAILY 12/02/17 [History] Mirtazapine [Remeron] 30 mg PO HS 12/02/17 [History] Pregabalin [Lyrica] 100 mg PO BID 12/02/17 [History] Ropinirole HCl [Requip] 0.5 mg PO BID 12/02/17 [History] Aspirin 81 mg PO DAILY #30 tab.chew 12/06/17 [Rx] Diltiazem HCl [Cardizem] 120 mg PO DAILY 01/14/18 [History] Nitrofurantoin (BID) [Macrobid] 100 mg PO BID 01/28/18 [History] Quetiapine Fumarate [Seroquel] 200 mg PO BID 01/31/18 [History] 3 Allergy/AdvReac Type Severity Reaction Status Date / Time Penicillins [PCN] Allergy Rash Verified 01/31/18 07:00 - Meds/Allergy Pre-op Review Medications Reviewed: Yes Allergies Reviewed: Yes Beta Blockers on Current Med List: No Anesthesia Results - Labs Laboratory Tests 01/30/18 01/30/18 12:28 12:28 Hgb 13.7 Hct 42.8 Plt Count 316 Sodium 136 Potassium 4.3 BUN 9 Creatinine 0.48 L - Imaging EKG: report reviewed (SINUS TACHYCARDIA BASELINE ARTIFACT COMPLICATES ACCURATE INTERPRETATION) Additional studies: echo: Impressions: LVEF 65%. Mild left ventricular diastolic dysfunction. Normal right ventricular structure and function. No significant valvular dysfunction. No pulmonary hypertension. stress test: Impression: Perfusion imaging was negative for ischemia or infarct. Pharmacologic stress ECG is negative for ischemia at level of heart rate achieved. Gated EF > 70%. Anesthesia Exam Selected Entries 01/31/18 06:44 01/31/18 07:25 Temperature 98.7 F Pulse Rate 105 Respiratory Rate 18 Blood Pressure 132/80 O2 Sat by Pulse Oximetry 96 Oxygen Delivery Method Room Air Weight: 59kg - HEENT Pupil (Motor): EOMI Mallampati: II Teeth: Edentulous Oral Opening: Greater than 3 - UNDERGROUND MINER LOC: Oriented UNDERGROUND MINER Motor: Normal RUE, Normal LUE, Normal RLE, Normal LLE, Normal Face UNDERGROUND MINER Sensory: Normal: RUE, LUE, RLE, LLE, Face - Cardiac Rhythm: Regular Murmur: None - Pulmonary Breath Sounds: bilateral Clear Respiratory Effort: Symmetrical Anesthesia Assess/Plan ASA Score: 3 Modified [place] Scale for Level of Consciousness: Cooperative, oriented, and tranquil Anesthetic Plan: General Monitoring Plan: Standard Monitors, A-Line Recovery Plan: PACU (agrees to GA and a-line. Will need power glide for iv access)
[2018-01-31] MEDS ORDERED: *HR* Propofol 200 MG/20 ML VIAL IVP ONE (08:34)
[2018-01-31] MEDS ORDERED: *HR* Midazolam HCl 2 MG/2 ML VIAL ONE (08:34)
[2018-01-31] MEDS ORDERED: *HR* PHENYLEPHRINE 1,000 MCG/10 ML SYRINGE IVP ONE (08:34)
[2018-01-31] MEDS ORDERED: Lidocaine -MPF 4% 5 ML AMPUL ONE (08:34)
[2018-01-31] MEDS ORDERED: *HR* FentaNYL (PF) 100 MCG/2 ML VIAL ONE ×3 (08:34→13:45)
[2018-01-31] MEDS ORDERED: Lidocaine -MPF 2% 2 ML VIAL ONE (08:34)
[2018-01-31] MEDS ORDERED: *HR* Succinylcholine 200 MG/10 ML VIAL IVP ONE (08:34)
[2018-01-31] MEDS ORDERED: *HR* EPINEPHrine 1 MG/ML AMPUL ONE (08:35)
[2018-01-31] MEDS ORDERED: *HR* Etomidate 40 MG/20 ML VIAL IVP ONE (08:40)
[2018-01-31] MEDS ORDERED: Lidocaine -MPF 1% 2 ML VIAL ONE (08:43)
[2018-01-31] MEDS ORDERED: Heparin 1,000 UNITS/500 mL 500 ML ONE (08:52)
[2018-01-31] MEDS ORDERED: *HR* Remifentanil 1 MG VIAL IVP ONE (09:07)
[2018-01-31] MEDS ORDERED: Phenylephrine 10 MG in D5% in Water 250 ML IVC SCH (09:15)
[2018-01-31] MEDS ORDERED: Heparin 1,000 UNITS/500 mL 1,000 ML ONE (09:23)
[2018-01-31] MEDS ORDERED: NiCARdipine 2.5 MG/10 ML Syringe IVPB ONE (09:26)
[2018-01-31] MEDS ORDERED: *HR* Heparin 5,000 UNIT/ML VIAL ONE ×2 (10:20→12:30)
[2018-01-31] MEDS ORDERED: *HR* Magnesium Sulfate 1 GM/2 ML VIAL ONE (10:21)
[2018-01-31] MEDS ORDERED: *HR* FentaNYL PATCH 25 MCG PATCH TD ONE ×2 (10:30→15:55)
[2018-01-31] MEDS ORDERED: *HR* Metoprolol 5 MG/5 ML VIAL IVP ONE (10:54)
[2018-01-31] MEDS ORDERED: *HR* Rocuronium Bromide 50 MG/5 ML VIAL ONE (11:13)
[2018-01-31] MEDS ORDERED: Vancomycin 1,000 MG VIAL ONE (11:25)
[2018-01-31] MEDS ORDERED: *HR* Remifentanil 2 MG VIAL IVP ONE (12:32)
[2018-01-31] MEDS ORDERED: Ondansetron 4 MG/2 ML VIAL ONE (13:21)
[2018-01-31] MEDS ORDERED: Dexamethasone 4 MG/ML VIAL ONE (13:21)
[2018-01-31] MEDS ORDERED: Neostigmine Methylsulfate 3 MG/3 ML SYRINGE ONE (13:44)
[2018-01-31] MEDS ORDERED: *HR* HYDROmorphone (PF) 1 MG/ML SYRINGE IVP PRN (13:54)
[2018-01-31] MEDS ORDERED: Acetaminophen IV 1,000 MG/100 ML INFUS..BTL IVPB ONE (13:54)
[2018-01-31] MEDS ORDERED: CloNIDine Patch 0.1 MG PATCH (WEEKLY) TD ONE ×2 (13:55→15:55)
--- NOTE | 2018-01-31 14:17 | Operative Note ---
Date of procedure: 01/31/18 Pre-op diagnosis: Peripheral vascular disease with rest pain Post-op diagnosis: same Procedure: 1. Aortobifemoral bypass graft with 14 x 7mm Hemashield Dacron graft. 2. Right common and deep femoral endarterectomy. Complications: None Anesthesia: GETA Surgeon: Yovany Russo Was there an food and beverage assistant present: Yes [employer] Inspector: Harsh Franco Estimated blood loss (cc): 200 Specimen: Left lower extremity plaque Condition: stable Disposition: PACU Procedure in Detail: Indications: The patient is a 57 year old female with a history of chronic obstructive pulmonary disease and tobacco abuse. She was found to have disabling claudication due to severe aortic disease and bilateral iliac artery occlusions. She also had a sacral decubitus ulcer. Revascularization was recommended for symptomatic relief and to reduce her risk of limb loss. Procedure: The patient was identified in the preoperative area. The risks, benefits, and alternatives of the procedure were discussed. All questions were answered. The patient was taken to the operating room and placed in supine position on the operating room table. After the induction of general endotracheal anesthesia, he was cleaned and draped in normal sterile fashion. An oblique incision was made over the right groin sharply. Hemostasis was obtained with electrocautery. Through a process of blunt, sharp, and electrocautery dissection, the right femoral vessels were dissected circumferentially and surrounded with vessel loops. An oblique incision was then made over the left groin sharply. Hemostasis was obtained with electrocautery. Through a process of blunt, sharp, and electrocautery dissection, the left femoral vessels were dissected circumferentially and surrounded with vessel loops. A midline incision was made sharply. Hemaostasis was obtained via electrocautery. Through a process of blunt, sharp and electrocautery dissection , the subcutaneous tissue, fascia and peritoneum were traversed. A brief exploration of the peritoneum revealed no acute pathology. The aorta was palpated in the retroperitoneum. The retroperitoneum was opened with blunt, sharp and electrocautery dissection. The aorta was dissected along the anterior , medial and lateral surfaces below the renal arteries. The dissection was extended down to the aortic bifurcation. A clamp was used to tunnel through the retroperitoneum to each femoral vessel. The patient received 5000 units of intravenous heparin and additional heparin throughout the case to maintain anticoagulation. A 14 x 7mm dacron bifurcated graft was cut to appropriate length. The infrarenal aorta was clamped proximally and distally. A longitudinal incision was made into the aorta between the clamps. Significant plaque and thrombus was removed. The aorta was flushed by releasing the clamp and a large organized thrombus emerged. The aorta was clamped again and infused with heparinized saline. The graft was cut to fit the defect and sutured in place with a running 3-0 prolene. After completing the anastamosis, the graft limbs were clamped and the aorta was reopened. Thrombin and gelfoam were used to aid in hemostasis. The graft limbs were tunneled to the femoral vessels. The bilateral femoral vessels were occluded and longitudinal arteriotomies were made in the common femoral arteries. On the right, significant partially occlusive plaque was noted. This was felt to result in diminished outflow therefore an endarterectomy was required. Using a dental freer a common and deep femoral endarterectomy was performed on the right. The specimen was sent to pathology. Proximal and distal endpoints were inspected. No elevated flaps were noted. The lumen was irrigated with heparinized saline. The graft limbs were cut to fit the arteriotomies bilaterally. The graft limbs were then sutured in place with a running 6-0 Prolene. Prior to completing the anastamoses, the femoral vessels were flushed through the graft anastamoses and heparin was infused into the lumen. The anastamoses were completed and flow was restored in the right lower extremity. After assuring appropriate hemodynamics flow was restored to the left lower extremity. Thrombin and gelfoam were used to aid in hemostasis. Polyphasic signals were noted distal to the anastamoses. The wounds were irrigated with antibiotic-containing saline. Platelet rich and platelet poor plasma were infused into the wounds. Meticulous hemostasis was obtained throughout the wounds with electrocautery. The femoral wounds were reapproximated with layers of 2-0 and 3-0 Vicryl. Skin was reapproximated with 3-0 Monocryl. The abdomen and pelvis were irrigated with antibiotic containing saline. Meticulous hemostasis was obtained throughout the retroperitoneum with electrocautery. The retroperitoneum was reapproximated with 2-0 Vicryl. The abdominal contents were returned to their normal anatomic position The nasogastric tube was checked for position. The Fascia was reapproximated with looped PDS suture. The subcutaneous tissue was reapproximated with 2-0 Vicryl. Platelet rich and platelet poor plasma were infused into the wound. Skin was reapproximated with 3-0 Monocryl. Sterile dressings were applied. The patient was extubated and taken to the recovery room in stable condition
[2018-01-31] MEDS ORDERED: Acetaminophen IV 1,000 MG/100 ML INFUS..BTL ONE (14:30)
[2018-01-31] MEDS ORDERED: *HR* HYDROmorphone (PF) 1 MG/ML SYRINGE ONE (14:38)
[2018-01-31] MEDS ORDERED: *HR* Promethazine 25 MG/ML VIAL ONE (14:50)
[2018-01-31] MEDS: *HR* Promethazine 25 MG/ML VIAL IVP PRN ×2 (14:52→15:00)
[2018-01-31] MEDS: *HR* HYDROmorphone (PF) 1 MG/ML SYRINGE IVP PRN ×2 (15:09→15:16)
--- NOTE | 2018-01-31 15:16 | Operative Note ---
Date of procedure: 01/31/18 Pre-op diagnosis: PAD/claudication Post-op diagnosis: same Procedure: Aortobifemoral bypass graft with 14 x 7 mm Hemashield Dacron prosthesis Right common femoral artery endarterectomy Complications: None Anesthesia: GETA Surgeon: Yovany Russo Co-Surgeon: Harsh Franco Was there an grants assistant present: No Estimated blood loss (cc): 200 Specimen: Right common femoral artery plaque Condition: stable Disposition: PACU Procedure in Detail: History Geeta Lua is a 57-year-old white female with significant lower extremity symptoms. She was found to have aortoiliac disease with occlusion of the distal aorta and iliac system with very small iliac arteries. She now comes for direct revascularization to relieve her lower extremity ischemia. Procedure After informed consent was obtained the patient was taken from the holding area to the operating room. General endotracheal anesthesia was established under arterial line pressure monitoring. The abdomen and groin and upper thighs were sterilely prepped and draped. A timeout protocol was observed. A 2 surgeon approach was utilized for this procedure due to the patient's comorbid conditions. In addition this would facilitate intraoperative complex decision- making as well as to minimize complications associated with prolonged general anesthesia and blood loss. The abdomen was opened through a vertical midline incision. Dissection was carried down to the retroperitoneum. This was then exposed and the abdominal aorta was identified. Dissection was carried down from the level of the renal arteries to the aortic bifurcation. The vessel was relatively small in diameter. The distal aspect of the vessel was clearly thrombosed with no pulse and was a firm structure. The groins were then opened through oblique incisions. Dissection was carried down to reveal the common femoral arteries. These were pulseless structures. They did have areas of soft texture but there is also significant plaque formation more in the right side than on the left. Tunnels were then created in the retroperitoneum from the groin into the abdomen. Heparin was then administered intravenously. After 3 minute delay the aorta was clamped and the infra renal location. An incision was made on the distal aspect of the aorta. The occlusive plaque was then endarterectomized and removed from this portion of the infrarenal aorta. The clamp of the proximal aorta was also briefly opened in order to flush this area to remove any debris. An end of graft to side of aorta anastomosis was performed for the proximal anastomosis. This was performed with 3-0 proline suture. After the anastomosis was complete the graft was clamped and the 2 limbs were passed through the previously created tunnels. The femoral anastomoses were then created end of graft to side of artery. This was performed in a secured with 6-0 Prolene. It should be noted on the right side because of the amount of plaque a formal endarterectomy was performed using a Sweetser elevator to remove the plaque. After appropriate backbleeding and flushing the grafts were open. The legs were opened first on the left side than on the right. The patient no hemodynamic distress. Excellent Doppler signals were identified as well as palpable pulses distal to the femoral anastomosis. All wounds were then irrigated. Hemostasis was achieved. The wounds were closed in layers in the groin with absorbable suture. In the abdomen the retroperitoneum was reapproximated over the graft. The fascia was closed with nonabsorbable suture. Dry sterile dressings were applied to the incisions. The patient tolerated the procedure well. There were no intraoperative complications. The patient was taken to the recovery room in stable condition.
--- NOTE | 2018-01-31 15:30 | Anesthesia Evaluation Post Op ---
Date of Encounter: 01/31/18 Time of Encounter: 15:29 - Vital Signs Vital Signs: Selected Entries 01/31/18 15:24 Temperature 98.2 F Temperature Source Axillary Pulse Rate 87 Respiratory Rate 16 Blood Pressure 169/91 O2 Sat by Pulse Oximetry 98 Oxygen Flow Rate (LPM) 4 - Lungs Lungs: Clear Ascult./Percussion - Airway Airway: Non-obstructed - Cardiovascular Regular Rate - Mental Status Mental Status: Alert & Oriented, Answers Appropriately - Pain Pain Scale: 4 Pain Scale used: Numeric (1 - 10) - Nausea Vomiting Nausea Vomiting: Not Present - Hydration Hydration: Ice chips, Porter catheter - Discharge PostOp Status: Transfer Patient to floor
[2018-01-31] MEDS ORDERED: Naloxone 0.4 MG/ML INJ IVP PRN (15:55)
[2018-01-31] MEDS ORDERED: OXYCODONE Oral CONC 10 MG/0.5 ML ORAL.SYG SL PRN (15:55)
[2018-01-31] MEDS ORDERED: *HR* HYDROcodone/Acet 5/325 mg TABLET PO PRN (15:55)
[2018-01-31] MEDS ORDERED: *HR* Labetalol 20 MG/4 ML SYRINGE IVP PRN (15:55)
[2018-01-31] MEDS ORDERED: Acetaminophen 325 MG TABLET PO PRN (15:55)
[2018-01-31 16:54] LABS: BUN/Creatinine Ratio 16 (6-26); Blood Urea Nitrogen 11 mg/dL (6-20); Calcium 8.7 mg/dL (8.6-10.3); Carbon Dioxide 24 mEq/L (23-29); Chloride 109 mEq/L (98-107); Glucose 159 mg/dL (70-105); Osmolality,Calculated 295 (280-300); Potassium 4.3 mEq/L (3.5-5.1); Sodium 141 mEq/L (136-145); eGFR For African Americans > 60 (> 60); eGFR For Non-African Americans > 60 (> 60)
[2018-01-31] MEDS: 0.9 % Sodium Chloride 1,000 ML IVC SCH (17:10)
[2018-01-31] MEDS: CeFAZolin Pre 2,000 MG/100 ML 2,000 MG/100 ML BAG IVPB SCH ×2 (17:12→18:35)
[2018-01-31] MEDS: *HR* Metoprolol 5 MG/5 ML VIAL IVP SCH ×2 (17:33→23:50)
[2018-01-31] MEDS: Famotidine 20 MG/2 ML VIAL IVP SCH (17:33)
[2018-01-31] MEDS: Ketorolac 15 MG/ML VIAL IVP SCH ×2 (17:33→23:50)
--- NOTE | 2018-01-31 17:35 | Event Note ---
Date of Encounter: 01/31/18 Time of Encounter: 17:00 The patient was seen and examined. She is comfortable and alert. She denies chest pain or shortness of breath. Her abdomen is soft. She has no hematomas. A nasogastric tube was placed. Continue nothing by mouth. Patient will have her decubitus ulcer that was present on admission dressing change today. Labs in the morning.
[2018-01-31] MEDS: Gentamicin Oint 15 GM TUBE TP SCH (18:26)
[2018-01-31] MEDS: OXYCODONE Oral CONC 10 MG/0.5 ML ORAL.SYG SL PRN (21:04)
[2018-01-31] MEDS: Ondansetron 4 MG/2 ML VIAL IVP PRN (21:43)
[2018-02-01] MEDS ORDERED: CeFAZolin Pre 2,000 MG/100 ML 2,000 MG/100 ML BAG IVPB SCH (01:00)
[2018-02-01] MEDS: OXYCODONE Oral CONC 10 MG/0.5 ML ORAL.SYG SL PRN ×5 (02:42→23:46)
[2018-02-01] MEDS: Ondansetron 4 MG/2 ML VIAL IVP PRN (04:06)
[2018-02-01 04:47] LABS: Basophils % 0.1 %; Eosinophils % 0.1 %; Hematocrit 38.6 % (35.3-44.9); Hemoglobin 12.7 g/dL (11.5-15.4); Immature Granulocytes % 0.6 % (0-4); Lymphocytes # 3.3 K/mcL (0.6-4.6); Lymphocytes % 22.7 %; Mean Corpuscular HGB Conc 32.9 g/dL (31.6-35.5); Mean Corpuscular Hemoglobin 30.6 pg (28.0-33.3); Mean Platelet Volume 9.9 fL (9.4-12.4); Monocytes # 1.6 K/mcL (0.0-1.3); Monocytes % 11.2 %; Neutrophils # 9.4 K/mcL (1.6-8.9); Nucleated Red Blood Cells 0.1 /100 WBC (0); Platelet Count 320 K/mcL (140-400); Red Blood Count 4.15 M/mcL (3.82-4.97); Red Cell Distribution Width 15.2 % (11.5-14.5); Segmented Neutrophils % 65.3 %
[2018-02-01 05:00] LABS: Prothrombin Time 10.7 Seconds (9.4-12.1)
[2018-02-01] MEDS: Ketorolac 15 MG/ML VIAL IVP SCH ×4 (05:49→23:45)
[2018-02-01] MEDS: Famotidine 20 MG/2 ML VIAL IVP SCH ×2 (05:49→16:36)
[2018-02-01] MEDS: *HR* Metoprolol 5 MG/5 ML VIAL IVP SCH ×4 (05:49→23:45)
[2018-02-01] MEDS: *HR* Heparin 5,000 UNIT/ML VIAL SQ SCH ×2 (05:50→16:30)
[2018-02-01] MEDS ORDERED: *HR* Heparin 5,000 UNIT/ML VIAL SQ SCH (06:00)
[2018-02-01 08:25] LABS: BUN/Creatinine Ratio 31 (6-26); Blood Urea Nitrogen 19 mg/dL (6-20); Calcium 8.6 mg/dL (8.6-10.3); Carbon Dioxide 22 mEq/L (23-29); Chloride 111 mEq/L (98-107); Glucose 128 mg/dL (70-105); Magnesium 2.4 mg/dL (1.6-2.6); Osmolality,Calculated 296 (280-300); Potassium 4.5 mEq/L (3.5-5.1); Sodium 141 mEq/L (136-145); eGFR For African Americans > 60 (> 60); eGFR For Non-African Americans > 60 (> 60)
--- NOTE | 2018-02-01 09:07 | Vascular/[facility] Progress Note ---
Date of Encounter: 02/01/18 Time of Encounter: 08:20 - Assessment and plan (1) Atherosclerosis of [place] arteries of extremities with intermittent claudication, bilateral legs Current Visit: Yes Status: Chronic The patient is postoperative day #1 after aortobifemoral bypass. His hemodynamics are stable. She is pedal signals present. Her incisions are healing well. She has not resumed bowel function. She will remain nothing by mouth. She will see with intravenous fluid hydration. Arterial line, Porter catheter and nasogastric tube will be removed today. She will be seen by physical therapy with for progressive ambulation immobilization. We will await return of the function of her bowel before beginning oral intake. Continue with pain medication. (2) COPD (chronic obstructive pulmonary disease) Current Visit: Yes Status: Chronic Continuous [place] oxygen as needed and incentive spirometry. Qualifiers: COPD type: emphysema Emphysema type: panlobular Qualified Code(s): J43.1 - Panlobular emphysema (3) Tobacco abuse Current Visit: Yes Status: Chronic She was counseled regarding smoking cessation. We will begin a nicotine patch today. (4) Decubitus ulcer of left buttock, stage 3 Current Visit: Yes Status: Acute Present on admission. Continue dressing changes. Wound care consult. (5) Decubitus ulcer of right buttock, stage 3 Current Visit: Yes Status: Acute Present on admission. - Subjective Interval history: The patient had no acute issues overnight. She reports incisional pain and tenderness. She denies chest pain or shortness of breath. She denies nausea. Vital Signs, Last 4 Hours Temp Pulse Resp BP Pulse Ox 02/01/18 07:46 93 02/01/18 07:03 98.4 F 94 20 126/90 93 - Physical Examination General: Present: Conversant, No Apparent Distress Cardiac: Present: Reg Rate and Rhythm Lungs: Present: Normal Breath Sounds Neuro: Present: Alert and responsive, No focal deficits noted Vascular: Present: Normal capillary refill, Pulse, normal (Pedal signals are present bilaterally, compartments are soft), Surgical incisions (No hematoma, incisions clean, intact and dry without erythema or drainage). Absent: Cyanosis , Edema Abdomen: Present: Soft, Other (No bowel sounds, incisional tenderness) - VTE Documentation of Mechanical Device: Intermittent pneumatic compression device Results 02/01/18 04:14 02/01/18 07:45 Lab Results, Last 24 hours 01/31/18 02/01/18 02/01/18 16:20 04:14 04:14 WBC 14.4 H Hgb 12.7 Hct 38.6 Plt Count 320 INR 1.0 Sodium 141 Potassium 4.3 Chloride 109 H Carbon Dioxide 24 BUN 11 Creatinine 0.67 Glucose 159 H Calcium 8.7 Magnesium 02/01/18 07:45 WBC Hgb Hct Plt Count INR Sodium 141 Potassium 4.5 Chloride 111 H Carbon Dioxide 22 L BUN 19 Creatinine 0.61 Glucose 128 H Calcium 8.6 Magnesium 2.4 Consult Discharge Plan - Plan Referrals: Sonia Hui [Other] (called and left a message for them to call us back, no one called me back, patient will need to make own appointment) Yovany Russo MD [Partnered Physician] - 03/11/18 11:00 am
[2018-02-01] MEDS: Nicotine 21 MG PATCH.TD24 TD SCH (11:28)
[2018-02-01] MEDS: 0.9 % Sodium Chloride 1,000 ML IVC SCH (11:29)
[2018-02-01] MEDS: *HR* OxyCODONE Immed Rel 5 MG TABLET PO PRN (14:33)
[2018-02-01] MEDS: Gentamicin Oint 15 GM TUBE TP SCH (14:35)
[2018-02-01] MEDS: *HR* LORazepam 2 MG/ML VIAL IVP PRN (23:45)
[2018-02-02] MEDS: Ketorolac 15 MG/ML VIAL IVP SCH ×4 (04:56→23:53)
[2018-02-02] MEDS: OXYCODONE Oral CONC 10 MG/0.5 ML ORAL.SYG SL PRN ×4 (04:57→20:08)
[2018-02-02] MEDS: Famotidine 20 MG/2 ML VIAL IVP SCH ×2 (04:57→17:36)
[2018-02-02] MEDS: *HR* Metoprolol 5 MG/5 ML VIAL IVP SCH ×4 (04:57→23:53)
[2018-02-02] MEDS: 0.9 % Sodium Chloride 1,000 ML IVC SCH (04:58)
[2018-02-02] MEDS: *HR* Heparin 5,000 UNIT/ML VIAL SQ SCH ×2 (04:58→17:41)
[2018-02-02] MEDS: Nicotine 21 MG PATCH.TD24 TD SCH (08:18)
[2018-02-02] MEDS: Gentamicin Oint 15 GM TUBE TP SCH (09:10)
--- NOTE | 2018-02-02 12:54 | Vascular/[facility] Progress Note ---
Date of Encounter: 02/02/18 Time of Encounter: 12:52 - Assessment and plan (1) PAD (peripheral artery disease) Current Visit: Yes Status: Chronic Patient has aortoiliac occlusive disease. She is now postoperative day 2 following aortobifemoral bypass grafting and right femoral endarterectomy. Bypass grafting is functioning well with warm lower extremities and palpable pulses. Will increase patient's physical activities. Postoperative ileus is resolving. Will begin clear liquid diet. Porter catheter was reinserted yesterday. This will be left in today and removed from her morning. (2) COPD (chronic obstructive pulmonary disease) Current Visit: Yes Status: Chronic Patient has chronic COPD Qualifiers: COPD type: emphysema Emphysema type: panlobular Qualified Code(s): J43.1 - Panlobular emphysema - Subjective Interval history: Patient is feeling better. She states she has been passing gas beginning last night and today. Patient needed a Porter catheter to be reinserted last night. Vital Signs, Last 4 Hours Temp Pulse Resp BP Pulse Ox 02/02/18 11:43 98.2 F 102 18 103/69 97 - Physical Examination General: Present: Conversant, No Apparent Distress HEENT: Present: Atraumatic Neck: Absent: JVD Cardiac: Present: Reg Rate and Rhythm, Normal S1 and S2 Lungs: Present: Normal Breath Sounds Neuro: Present: Alert and responsive, No focal deficits noted Vascular: Present: Normal capillary refill, Pulse, normal, Surgical incisions ( Surgical incisions are covered with dry dressings.). Absent: Cyanosis, Edema Abdomen: Present: Soft, Non-tender, Other (Active bowel sounds) Skin: Present: No rashes noted on visualized skin - VTE Documentation of Mechanical Device: Intermittent pneumatic compression device Results 02/01/18 04:14 02/01/18 07:45 Consult Discharge Plan - Plan Referrals: Sonia Hui [Other] (called and left a message for them to call us back, no one called me back, patient will need to make own appointment) Yovany Russo MD [Partnered Physician] - 03/11/18 11:00 am
[2018-02-02] MEDS: *HR* LORazepam 2 MG/ML VIAL IVP PRN (21:51)
[2018-02-03] MEDS: Ketorolac 15 MG/ML VIAL IVP SCH ×4 (06:12→23:30)
[2018-02-03] MEDS: *HR* Heparin 5,000 UNIT/ML VIAL SQ SCH ×2 (06:12→17:45)
[2018-02-03] MEDS: Famotidine 20 MG/2 ML VIAL IVP SCH (06:12)
[2018-02-03] MEDS: *HR* Metoprolol 5 MG/5 ML VIAL IVP SCH ×4 (06:12→23:30)
[2018-02-03] MEDS: *HR* OxyCODONE Immed Rel 5 MG TABLET PO PRN ×2 (08:03→20:15)
[2018-02-03] MEDS: Nicotine 21 MG PATCH.TD24 TD SCH (08:04)
[2018-02-03] MEDS: Gentamicin Oint 15 GM TUBE TP SCH (08:07)
--- NOTE | 2018-02-03 15:19 | Vascular/[facility] Progress Note ---
Date of Encounter: 02/03/18 Time of Encounter: 15:17 - Assessment and plan (1) PAD (peripheral artery disease) Current Visit: Yes Status: Chronic Patient has aortoiliac occlusive disease. She is now postoperative day 3 following aortobifemoral bypass grafting and right femoral endarterectomy. Bypass grafting is functioning well with warm lower extremities and palpable pulses. Will increase patient's physical activities. Postoperative ileus is resolving. Will advance diet. Porter catheter was reinserted this afternoon due to inability to void. (2) COPD (chronic obstructive pulmonary disease) Current Visit: Yes Status: Chronic Patient has chronic COPD Qualifiers: COPD type: emphysema Emphysema type: panlobular Qualified Code(s): J43.1 - Panlobular emphysema - Subjective Interval history: Patient complains of not being able to have a bowel movement. The patient has had flatus yesterday and today. The Porter catheter was removed this morning. She has been unable to void. The Porter catheter was then reinserted this afternoon. The patient has not yet been up walking in the hallways. Vital Signs, Last 4 Hours Temp Pulse Resp BP Pulse Ox 02/03/18 11:31 98.3 F 84 18 107/73 100 - Physical Examination General: Present: Conversant, No Apparent Distress HEENT: Present: Atraumatic Cardiac: Present: Reg Rate and Rhythm, Normal S1 and S2 Lungs: Present: Normal Breath Sounds Neuro: Present: Alert and responsive Vascular: Present: Normal capillary refill, Pulse, normal, Color/Temperature ( Feet are warm and pink), Surgical incisions (Groin dressings are intact. Abdominal incision is healing well.). Absent: Edema Abdomen: Present: Soft, Non-tender, Other (Mild distention. Hypoactive bowel sounds.) Skin: Present: No rashes noted on visualized skin - VTE Documentation of Mechanical Device: Intermittent pneumatic compression device Results 02/01/18 04:14 02/01/18 07:45 Consult Discharge Plan - Plan Referrals: Sonia Hui [Other] (called and left a message for them to call us back, no one called me back, patient will need to make own appointment) Yovany Russo MD [Partnered Physician] - 03/11/18 11:00 am
[2018-02-03] MEDS: Famotidine 20 MG TABLET PO SCH (17:24)
[2018-02-04] MEDS: *HR* Metoprolol 5 MG/5 ML VIAL IVP SCH ×2 (06:35→11:53)
[2018-02-04] MEDS: Ketorolac 15 MG/ML VIAL IVP SCH ×2 (06:41→11:52)
[2018-02-04] MEDS: *HR* Heparin 5,000 UNIT/ML VIAL SQ SCH (06:41)
[2018-02-04] MEDS: Famotidine 20 MG TABLET PO SCH (07:23)
[2018-02-04] MEDS: Nicotine 21 MG PATCH.TD24 TD SCH (07:23)
--- NOTE | 2018-02-04 13:04 | Discharge Summary ---
Orders not resulted at time of discharge: Pending orders 01/31/18 Red Blood Cells [BBK] Routine 01/31/18 14:09 Surgical Pathology [PTH] Routine Date of Encounter: 02/04/18 Time of Encounter: 12:55 - Discharge Diagnosis (1) Atherosclerosis of [place] arteries of extremities with intermittent claudication, bilateral legs Priority: Secondary Status: Chronic Comments: The patient is postoperative day #4 after an aortobifemoral bypass. She is tolerating a diet and her pain is well-controlled. Her compartments are soft and she has palpable pedal pulses. She had expected postoperative edema in the bilateral lower extremity. A venous duplex revealed no evidence of venous thromboembolism. She will be discharged to home with home health services today. (2) COPD (chronic obstructive pulmonary disease) Priority: Secondary Status: Chronic Qualifiers: COPD type: emphysema Emphysema type: panlobular Qualified Code(s): J43.1 - Panlobular emphysema (3) Tobacco abuse Priority: Secondary Status: Chronic Comments: She was counseled regarding smoking cessation. (4) Decubitus ulcer of left buttock, stage 3 Priority: Secondary Status: Chronic Comments: Present on admission. Continue with local wound care. (5) Decubitus ulcer of right buttock, stage 3 Priority: Secondary Status: Chronic Comments: Present on admission. Continue with local wound care. (6) Urinary retention with incomplete bladder emptying Priority: Secondary Status: Chronic Comments: The patient reports chronic urinary retention which was present prior to admission to the hospital. She has had multiple attempts to remove her Engel catheter. However due to ongoing urinary retention she has required replacement catheter twice. She will be discharged with the Engel catheter in place. She will follow-up with urology later this week for a voiding trial and further evaluation. - Hospital Course Hospital course: Ms. Lua is a 57 year old female with history of severe peripheral vascular disease with rest pain and decubitus ulceration. The patient was admitted on where she underwent an aortobifemoral bypass graft. She tolerated the procedure well. On postoperative day #1 she was hemodynamically stable and her hemoglobin was normal. She was seen by physical therapy. The patient reported urinary retention prior to admission. Her urinary retention persisted throughout her hospitalization. She was unable to void despite her catheter being removed on 2 occasions. She is able to tolerate a diet and her pain was well-controlled. He was ultimately discharged on postoperative day #4 in stable condition. She will follow-up with urology for a voiding trial and further evaluation of her chronic urinary retention. Time spent discussing smoking cessation with patient: 3 to 10 minutes - Time Spent with Patient Total time spent providing and/or coordinating discharge services: - Discharge Medications Prescriptions: OxyCODONE/APAP 5/325 [Percocet 5/325 MG] 1 each PO Q6HR PRN 7 Days #25 tablet PRN Reason: Postoperative pain Home Medications: FLUoxetine HCl [Prozac] 20 mg PO DAILY 12/02/17 [History] Mirtazapine [Remeron] 30 mg PO HS 12/02/17 [History] Pregabalin [Lyrica] 100 mg PO BID 12/02/17 [History] Ropinirole HCl [Requip] 0.5 mg PO BID 12/02/17 [History] Aspirin 81 mg PO DAILY #30 tab.chew 12/06/17 [Rx] Diltiazem HCl [Cardizem] 120 mg PO DAILY 01/14/18 [History] Nitrofurantoin (BID) [Macrobid] 100 mg PO BID 01/28/18 [History] Quetiapine Fumarate [Seroquel] 200 mg PO BID 01/31/18 [History] OxyCODONE/APAP 5/325 [Percocet 5/325 MG] 1 each PO Q6HR PRN 7 Days #25 tablet [Rx] Allergies/Adverse Reactions: 3 Allergy/AdvReac Type Severity Reaction Status Date / Time Penicillins [PCN] Allergy Rash Verified 01/31/18 07:00 Date of admission: 01/31/18 15:50 Primary care physician: PCP NONE Consults: 01/31/18 15:55 Consult to Physical Therapy [CONS] Routine Comment: Evaluate, develop and implement POC Reason for Consult: Patient has undergone aortobifemoral bypass graft. Bedrest until . Does patient have active BEDREST order?: Yes Is patient medically & hemodynamically stable?: Yes Patient assessed for mobility or mobilized this visit?: No Consult to Wound Care [CONS] Routine Reason for Consult: Sacral Decubitus ulcer present on admission. Evaluate and treat. Call Completed: No 02/01/18 09:10 Consult to Physical Therapy [CONS] Routine Comment: Evaluate, develop and implement POC Reason for Consult: Status post aortobifemoral bypass. Needs progressive ambulation and assessment for discharge planning. Does patient have active BEDREST order?: No Is patient medically & hemodynamically stable?: Yes Discharging clinician: Yovany Russo Anticipated date of discharge: 02/04/18 Exam Vital Signs, Last 4 Hours Temp Pulse Resp BP Pulse Ox 02/04/18 12:02 90 02/04/18 11:17 98.4 F 92 14 112/80 94 General: Present: Conversant, No Apparent Distress HEENT: Present: Pupils equal Cardiac: Present: Reg Rate and Rhythm Lungs: Present: Normal Breath Sounds Neuro: Present: Alert and responsive, Motor nerves grossly intact, Sensory nerves grossly intact Abdomen: Present: Soft, Non-tender Vascular: Present: Normal capillary refill, Pulse, normal, Edema (Trace bilateral lower extremity edema), Surgical incisions (Clean, dry and intact without erythema or drainage.). Absent: Cyanosis Skin: Present: No rashes noted on visualized skin Musculoskeletal: Present: No Chest Wall Tenderness - Patient Status Disposition: Home Health Service Condition: Good Functional capacity at discharge: uses cane/walker Overall status at discharge: patient is progressing back to baseline - Discharge Instructions Follow Up With: Sonia Hui [Other] - 02/12/18 1:30 pm () Yovany Russo MD [Partnered Physician] - 03/11/18 11:00 am Additional Instructions: Follow up with Urology for management of engel catheter. May shower daily. No tub baths or swimming until 03/06/2018. Wash wounds gently and pat to dry. No lifting more than 10 pounds for 1 month. No lifting more than 20 pounds for [address] Russo at [phone] with questions or concerns. - Diet and Activity Activity: increase activity as tolerated Diet: low fat, low cholesterol - VTE Documentation of Mechanical Device: Intermittent pneumatic compression device
[2018-02-04] MEDS: Gentamicin Oint 15 GM TUBE TP SCH (13:56)
--- NOTE | 2018-02-04 15:19 | Physician Discharge Referral ---
Home Health/Hosp Referral Info Transfer to: Home Health Provider in Charge Post Discharge: PCP - Diagnosis (1) Atherosclerosis of [place] arteries of extremities with intermittent claudication, bilateral legs Priority: Primary Status: Chronic (2) COPD (chronic obstructive pulmonary disease) Priority: Secondary Status: Chronic (3) Tobacco abuse Priority: Secondary Status: Chronic (4) Decubitus ulcer of left buttock, stage 3 Priority: Secondary Status: Acute (5) Decubitus ulcer of right buttock, stage 3 Priority: Secondary Status: Acute - Respiratory Orders Smoking Cessation: Smoking cessation has been advised. For more information, call the [place] Tobacco Quit Line at 8-278-FGPR-NOW. - Diet/Nutrition Diet/Nutrition Orders: Cardiac - Activity Activity Orders: Up ad felipe - Services Needed Following services are medically necessary services: Home Health Aide, Physical Therapy - Transfer Medications Prescriptions: OxyCODONE/APAP 5/325 [Percocet 5/325 MG] 1 each PO Q6HR PRN 7 Days #25 tablet PRN Reason: Postoperative pain Home Medications: FLUoxetine HCl [Prozac] 20 mg PO DAILY 12/02/17 [History] Mirtazapine [Remeron] 30 mg PO HS 12/02/17 [History] Pregabalin [Lyrica] 100 mg PO BID 12/02/17 [History] Ropinirole HCl [Requip] 0.5 mg PO BID 12/02/17 [History] Aspirin 81 mg PO DAILY #30 tab.chew 12/06/17 [Rx] Diltiazem HCl [Cardizem] 120 mg PO DAILY 01/14/18 [History] Nitrofurantoin (BID) [Macrobid] 100 mg PO BID 01/28/18 [History] Quetiapine Fumarate [Seroquel] 200 mg PO BID 01/31/18 [History] OxyCODONE/APAP 5/325 [Percocet 5/325 MG] 1 each PO Q6HR PRN 7 Days #25 tablet [Rx] Allergies/Adverse Reactions: 3 Allergy/AdvReac Type Severity Reaction Status Date / Time Penicillins [PCN] Allergy Rash Verified 01/31/18 07:00 Certification: Further, I certify that my clinical findings support that this patient is homebound (i.e. absences from home require considerable and taxing effort and are for medical reasons or sabianism services or infrequently or short duration when for other reasons) because: Homebound Reason: Post-surgery restriction and or conditions limit ability to leave home, Leaving home requires considerable and taxing effort due to condition Attestation: My signature below is to certify that this patient is under my care and that I, or nurse practitioner, or a physician's medical receptionist medical assistant working with me, has a face-to -face encounter with this patient.
[2018-02-04 16:24] VITALS: BP 109/78
== END 2018-02-04 17:30 | disposition home health service (06) | DRG 169 ==
LOC: SAMDAY 06:25 → 2NNU 15:50
PROVIDERS: ADMIT Surgery; ATTEND Surgery

== ENCOUNTER 2021-03-14 13:56 | Inpatient (IN) ==
[2021-03-14] MEDS ORDERED: Morphine Sulfate 2 MG/ML SYRINGE IVP ONE (14:52)
[2021-03-14] MEDS ORDERED: Isovue-370 500 ML BOTTLE IVP ONE (15:13)
[2021-03-14 15:50] LABS: Basophils % 0.2 %; Eosinophils % 0.4 %; Hematocrit 42.7 % (35.3-44.9); Hemoglobin 13.4 g/dL (11.5-15.4); Immature Granulocytes % 0.4 % (0-4); Lymphocytes # 2.8 K/mcL (0.6-4.6); Lymphocytes % 24.8 %; Mean Corpuscular HGB Conc 31.4 g/dL (31.6-35.5); Mean Corpuscular Hemoglobin 29.7 pg (28.0-33.3); Mean Corpuscular Volume 94.7 fL (83.0-100.0); Mean Platelet Volume 11.3 fL (9.4-12.4); Monocytes % 8.6 %; Neutrophils # 7.5 K/mcL (1.6-8.9); Platelet Count 206 K/mcL (140-400); Red Blood Count 4.51 M/mcL (3.82-4.97); Red Cell Distribution Width 14.9 % (11.5-14.5); Segmented Neutrophils % 65.6 %; White Blood Count 11.4 K/mcL (4.3-11.1)
[2021-03-14] MEDS ORDERED: *HR* HYDROmorphone (PF) 1 MG/ML SYRINGE IVP ONE (15:58)
[2021-03-14 16:10] LABS: BUN/Creatinine Ratio 18 (6-26); Blood Urea Nitrogen 9 mg/dL (8-23); Calcium 8.6 mg/dL (8.6-10.3); Carbon Dioxide 26 mEq/L (23-29); Chloride 105 mEq/L (98-107); Glucose 115 mg/dL (70-105); Osmolality,Calculated 296 (280-300); Potassium 3.3 mEq/L (3.5-5.1); Sodium 143 mEq/L (136-145); Troponin I < 0.03 ng/mL (< 0.04); eGFR For African Americans > 60 (> 60); eGFR For Non-African Americans > 60 (> 60)
[2021-03-14] MEDS ORDERED: Azithromycin 500 MG in 0.9 % Sodium Chloride 250 ML IVPB ONE (16:22)
[2021-03-14] MEDS ORDERED: cefTRIAXone 1,000 MG in 0.9 % Sodium Chloride Mini Bag 100 ML IVPB ONE (16:22)
[2021-03-14 17:04] LABS: Prothrombin Time 11.7 Seconds (9.4-12.1)
[2021-03-14 17:06] LABS: Activated Partial Thrombo Time 27.5 Seconds (26.0-36.0)
[2021-03-14] MEDS ORDERED: Ondansetron 4 MG/2 ML VIAL IVP ONE (17:15)
[2021-03-14] MEDS ORDERED: Naloxone 0.4 MG/ML INJ IVP PRN (18:12)
[2021-03-14] MEDS ORDERED: Ondansetron 4 MG/2 ML VIAL IVP PRN (18:12)
[2021-03-14] MEDS ORDERED: Acetaminophen 325 MG TABLET PO PRN (18:12)
[2021-03-14] MEDS: rOPINIRole 0.25 MG TABLET PO SCH (22:21)
[2021-03-14] MEDS: traZODone 50 MG TABLET PO SCH (22:21)
[2021-03-14] MEDS: clonazePAM 1 MG TABLET PO SCH (22:21)
[2021-03-14] MEDS: Gabapentin 400 MG CAPSULE PO SCH (22:22)
[2021-03-14] MEDS: (Brexpiprazole [Rexulti] 0.5 MG Tablet) PO SCH (22:23)
[2021-03-14] MEDS: 0.9 % Sodium Chloride 1,000 ML IVC SCH (22:24)
[2021-03-14] MEDS: Nicotine 21 MG PATCH.TD24 TD SCH (22:26)
[2021-03-14] MEDS: amLODIPine 5 MG TABLET PO SCH (22:27)
[2021-03-14] MEDS: *HR* Heparin 5,000 UNIT/ML VIAL SQ SCH (22:32)
[2021-03-14] MEDS: *HR* OxyCODONE/APAP 5/325 TABLET PO PRN (22:49)
[2021-03-14] MEDS: Ipratropium/Albuterol Neb 3 ML IH SCH (23:25)
[2021-03-14] MEDS: Budesonide/Formoterol 160/4.5 1 PUFF INH IH SCH (23:25)
[2021-03-15 00:36] LABS: Basophils % 0.2 %; Eosinophils % 0.1 %; Hematocrit 39.2 % (35.3-44.9); Hemoglobin 12.2 g/dL (11.5-15.4); Immature Granulocytes % 0.4 % (0-4); Lymphocytes # 2.4 K/mcL (0.6-4.6); Lymphocytes % 24.8 %; Mean Corpuscular HGB Conc 31.1 g/dL (31.6-35.5); Mean Corpuscular Hemoglobin 29.5 pg (28.0-33.3); Mean Corpuscular Volume 94.9 fL (83.0-100.0); Mean Platelet Volume 11.2 fL (9.4-12.4); Monocytes % 10.2 %; Neutrophils # 6.1 K/mcL (1.6-8.9); Platelet Count 156 K/mcL (140-400); Red Blood Count 4.13 M/mcL (3.82-4.97); Red Cell Distribution Width 14.7 % (11.5-14.5); Segmented Neutrophils % 64.3 %; White Blood Count 9.5 K/mcL (4.3-11.1)
[2021-03-15 01:04] LABS: BUN/Creatinine Ratio 15 (6-26); Blood Urea Nitrogen 6 mg/dL (8-23); Carbon Dioxide 25 mEq/L (23-29); Chloride 107 mEq/L (98-107); Glucose 100 mg/dL (70-105); Osmolality,Calculated 288 (280-300); Potassium 4.2 mEq/L (3.5-5.1); Sodium 140 mEq/L (136-145); Troponin I < 0.03 ng/mL (< 0.04); eGFR For African Americans > 60 (> 60); eGFR For Non-African Americans > 60 (> 60)
[2021-03-15] MEDS: Sucralfate 1 GM TABLET PO SCH ×5 (01:04→21:56)
[2021-03-15] MEDS: *HR* HYDROcodone/Acet 5/325 mg TABLET PO PRN ×2 (03:52→20:52)
[2021-03-15] MEDS: Ipratropium/Albuterol Neb 3 ML IH SCH ×4 (04:01→21:42)
[2021-03-15] MEDS: *HR* Heparin 5,000 UNIT/ML VIAL SQ SCH ×2 (05:46→17:14)
[2021-03-15] MEDS: clonazePAM 1 MG TABLET PO SCH ×2 (07:20→20:52)
[2021-03-15] MEDS: Nicotine 21 MG PATCH.TD24 TD SCH (07:20)
[2021-03-15] MEDS: Gabapentin 400 MG CAPSULE PO SCH ×3 (07:21→20:52)
[2021-03-15] MEDS: amLODIPine 5 MG TABLET PO SCH (07:21)
[2021-03-15] MEDS: 0.9 % Sodium Chloride 1,000 ML IVC SCH ×2 (07:58→21:56)
[2021-03-15] MEDS: *HR* OxyCODONE/APAP 5/325 TABLET PO PRN (07:59)
[2021-03-15] MEDS: AMPHETAMINE PO SCH (08:12)
[2021-03-15] MEDS: (Brexpiprazole [Rexulti] 0.5 MG Tablet) PO SCH (08:12)
[2021-03-15] MEDS: DEXTROAMPHETAMINE PO SCH (08:12)
[2021-03-15] MEDS: (Vortioxetine Hydrobromide [Trintellix] 20 MG Tablet) PO SCH (08:12)
[2021-03-15] MEDS: Morphine Sulfate 2 MG/ML SYRINGE IVP PRN ×2 (09:53→14:49)
[2021-03-15] MEDS: Budesonide/Formoterol 160/4.5 1 PUFF INH IH SCH ×2 (09:53→21:43)
[2021-03-15] MEDS: *HR* OxyCODONE/APAP 10/325 TABLET PO PRN (18:25)
[2021-03-15] MEDS: rOPINIRole 0.25 MG TABLET PO SCH (20:52)
[2021-03-15] MEDS: traZODone 50 MG TABLET PO SCH (20:52)
[2021-03-16] MEDS: Morphine Sulfate 2 MG/ML SYRINGE IVP PRN ×3 (02:02→13:22)
[2021-03-16] MEDS: Ipratropium/Albuterol Neb 3 ML IH SCH ×4 (04:06→21:40)
[2021-03-16] MEDS: *HR* Heparin 5,000 UNIT/ML VIAL SQ SCH (06:07)
[2021-03-16] MEDS: *HR* OxyCODONE/APAP 10/325 TABLET PO PRN (06:10)
[2021-03-16] MEDS ORDERED: *HR* Midazolam HCl 2 MG/2 ML VIAL IVP ONE (07:57)
[2021-03-16] MEDS ORDERED: *HR* FentaNYL (PF) 100 MCG/2 ML VIAL IVP ONE (07:57)
[2021-03-16] MEDS ORDERED: Clindamycin 600 MG/50 ML 600 MG/50 ML IV.SOLN IVPB ONE (07:58)
[2021-03-16] MEDS: Sucralfate 1 GM TABLET PO SCH ×4 (09:23→21:09)
[2021-03-16] MEDS: Gabapentin 400 MG CAPSULE PO SCH ×3 (09:23→21:10)
[2021-03-16] MEDS: clonazePAM 1 MG TABLET PO SCH ×2 (09:23→21:10)
[2021-03-16] MEDS: amLODIPine 5 MG TABLET PO SCH (09:23)
[2021-03-16] MEDS: Nicotine 21 MG PATCH.TD24 TD SCH (09:24)
[2021-03-16] MEDS: (Brexpiprazole [Rexulti] 0.5 MG Tablet) PO SCH (09:27)
[2021-03-16] MEDS: AMPHETAMINE PO SCH (09:27)
[2021-03-16] MEDS: DEXTROAMPHETAMINE PO SCH (09:27)
[2021-03-16] MEDS: (Vortioxetine Hydrobromide [Trintellix] 20 MG Tablet) PO SCH (09:27)
[2021-03-16] MEDS: *HR* HYDROcodone/Acet 5/325 mg TABLET PO PRN (10:32)
[2021-03-16] MEDS: Budesonide/Formoterol 160/4.5 1 PUFF INH IH SCH ×2 (11:13→21:40)
[2021-03-16 12:12] LABS: Basophils % 0.2 %; Eosinophils % 0.3 %; Hematocrit 41.4 % (35.3-44.9); Hemoglobin 12.9 g/dL (11.5-15.4); Immature Granulocytes % 0.3 % (0-4); Lymphocytes # 2.9 K/mcL (0.6-4.6); Mean Corpuscular HGB Conc 31.2 g/dL (31.6-35.5); Mean Corpuscular Hemoglobin 29.6 pg (28.0-33.3); Mean Platelet Volume 11.5 fL (9.4-12.4); Monocytes % 11.3 %; Neutrophils # 4.8 K/mcL (1.6-8.9); Platelet Count 235 K/mcL (140-400); Red Blood Count 4.36 M/mcL (3.82-4.97); Red Cell Distribution Width 14.6 % (11.5-14.5); Segmented Neutrophils % 54.9 %; White Blood Count 8.7 K/mcL (4.3-11.1)
[2021-03-16 12:31] LABS: BUN/Creatinine Ratio 13 (6-26); Blood Urea Nitrogen 6 mg/dL (8-23); Calcium 8.6 mg/dL (8.6-10.3); Carbon Dioxide 30 mEq/L (23-29); Chloride 108 mEq/L (98-107); Glucose 92 mg/dL (70-105); Osmolality,Calculated 289 (280-300); Potassium 3.8 mEq/L (3.5-5.1); Sodium 141 mEq/L (136-145); eGFR For African Americans > 60 (> 60); eGFR For Non-African Americans > 60 (> 60)
[2021-03-16] MEDS: Morphine Sulfate ER (12 HR) 15 MG TABLET.ER PO SCH (17:33)
[2021-03-16] MEDS: traZODone 50 MG TABLET PO SCH (21:09)
[2021-03-16] MEDS: rOPINIRole 0.25 MG TABLET PO SCH (21:10)
[2021-03-17] MEDS: Ipratropium/Albuterol Neb 3 ML IH SCH ×4 (03:45→21:33)
[2021-03-17] MEDS: Morphine Sulfate ER (12 HR) 15 MG TABLET.ER PO SCH ×2 (05:47→18:20)
[2021-03-17 06:57] LABS: Basophils % 0.1 %; Eosinophils # 0.1 K/mcL (0.0-0.6); Eosinophils % 0.9 %; Hematocrit 39.9 % (35.3-44.9); Hemoglobin 12.8 g/dL (11.5-15.4); Immature Granulocytes % 0.3 % (0-4); Lymphocytes # 2.2 K/mcL (0.6-4.6); Lymphocytes % 32.5 %; Mean Corpuscular HGB Conc 32.1 g/dL (31.6-35.5); Mean Corpuscular Hemoglobin 30.2 pg (28.0-33.3); Mean Corpuscular Volume 94.1 fL (83.0-100.0); Monocytes # 0.7 K/mcL (0.0-1.3); Monocytes % 10.1 %; Neutrophils # 3.8 K/mcL (1.6-8.9); Platelet Count 239 K/mcL (140-400); Red Blood Count 4.24 M/mcL (3.82-4.97); Red Cell Distribution Width 14.4 % (11.5-14.5); Segmented Neutrophils % 56.1 %; White Blood Count 6.7 K/mcL (4.3-11.1)
[2021-03-17 07:19] LABS: BUN/Creatinine Ratio 16 (6-26); Blood Urea Nitrogen 7 mg/dL (8-23); Calcium 8.5 mg/dL (8.6-10.3); Carbon Dioxide 30 mEq/L (23-29); Chloride 106 mEq/L (98-107); Glucose 87 mg/dL (70-105); Osmolality,Calculated 289 (280-300); Potassium 3.6 mEq/L (3.5-5.1); Sodium 141 mEq/L (136-145); eGFR For African Americans > 60 (> 60); eGFR For Non-African Americans > 60 (> 60)
[2021-03-17] MEDS ORDERED: Lidocaine 1% 20 ML MDV ONE (07:26)
[2021-03-17] MEDS ORDERED: *HR* Heparin 5,000 UNIT/ML VIAL ONE (07:26)
[2021-03-17] MEDS ORDERED: Clindamycin 600 MG/50 ML 600 MG/50 ML IV.SOLN IVPB ONE ×2 (07:44→07:54)
[2021-03-17] MEDS ORDERED: Ondansetron 4 MG/2 ML VIAL IVP PRN (08:50)
[2021-03-17] MEDS ORDERED: Acetaminophen 325 MG TABLET PO PRN (08:50)
[2021-03-17] MEDS ORDERED: Naloxone 0.4 MG/ML INJ IVP PRN (08:50)
[2021-03-17] MEDS: amLODIPine 5 MG TABLET PO SCH (09:55)
[2021-03-17] MEDS: Gabapentin 400 MG CAPSULE PO SCH ×3 (09:55→20:11)
[2021-03-17] MEDS: clonazePAM 1 MG TABLET PO SCH ×2 (09:56→20:10)
[2021-03-17] MEDS: Nicotine 21 MG PATCH.TD24 TD SCH (09:57)
[2021-03-17] MEDS: Patient Taking Own Medication 1 EACH PO SCH ×3 (10:00→13:31)
[2021-03-17] MEDS: Budesonide/Formoterol 160/4.5 1 PUFF INH IH SCH ×2 (10:45→21:33)
[2021-03-17] MEDS: Sucralfate 1 GM TABLET PO SCH ×3 (13:34→23:20)
[2021-03-17] MEDS ORDERED: rOPINIRole 0.25 MG TABLET PO SCH (21:00)
[2021-03-17] MEDS ORDERED: traZODone 50 MG TABLET PO SCH (21:00)
[2021-03-17 23:08] LABS: Hematocrit 38.6 % (35.3-44.9); Hemoglobin 12.1 g/dL (11.5-15.4); Mean Corpuscular HGB Conc 31.3 g/dL (31.6-35.5); Mean Corpuscular Hemoglobin 29.7 pg (28.0-33.3); Mean Corpuscular Volume 94.8 fL (83.0-100.0); Mean Platelet Volume 10.6 fL (9.4-12.4); Platelet Count 239 K/mcL (140-400); Red Blood Count 4.07 M/mcL (3.82-4.97); Red Cell Distribution Width 14.2 % (11.5-14.5); White Blood Count 6.2 K/mcL (4.3-11.1)
[2021-03-18] MEDS: Ipratropium/Albuterol Neb 3 ML IH SCH ×3 (04:39→16:12)
[2021-03-18] MEDS: Morphine Sulfate ER (12 HR) 15 MG TABLET.ER PO SCH ×2 (05:20→16:35)
[2021-03-18 07:12] VITALS: BP 137/82
[2021-03-18] MEDS: Gabapentin 400 MG CAPSULE PO SCH ×2 (08:24→13:26)
[2021-03-18] MEDS: Nicotine 21 MG PATCH.TD24 TD SCH (08:24)
[2021-03-18] MEDS: amLODIPine 5 MG TABLET PO SCH (08:25)
[2021-03-18] MEDS: clonazePAM 1 MG TABLET PO SCH (08:25)
[2021-03-18] MEDS: Sucralfate 1 GM TABLET PO SCH ×3 (08:25→16:35)
[2021-03-18] MEDS: Patient Taking Own Medication 1 EACH PO SCH ×3 (08:26)
[2021-03-18] MEDS ORDERED: Preparation H Ointment 57 GM TUBE RC SCH (09:00)
[2021-03-18] MEDS: Budesonide/Formoterol 160/4.5 1 PUFF INH IH SCH (10:57)
[2021-03-18] MEDS ORDERED: Sennosides 8.6 MG TABLET PO SCH (21:00)
== END 2021-03-18 17:26 | disposition home health service (06) | DRG 861 ==
LOC: 3ANU 13:56 → EMEROOARM 13:56 → SUATTDRO 17:19 → 3ANU 18:09
PROVIDERS: ADMIT Internal Medicine; ATTEND Internal Medicine